=== PATIENT | male | born 1960 | race Caucasian/White ===

== ENCOUNTER 2021-02-21 01:05 | Day surgery (SDC) | payer BC, SELFPAY ==
[2021-02-08 10:44] VITALS: BMI 21.8
[2021-02-21 07:42] VITALS: BP 119/82; PULSE 92; RESP 16; TEMP 36.1; O2SAT 98; BMI 21.7
[2021-02-21 07:52] LABS: Glucose Point of Care 126 mg/dl (65-105)
[2021-02-21] MEDS: LACTATED RINGERS 1,000 ML 150 ML IV CONT (07:52)
--- NOTE | 2021-02-21 07:57 | WPDGICN ---
Assessment and Plan Assessment and plan (1) Colon cancer screening: Code(s): Z12.11 - Encounter for screening for malignant neoplasm of colon Status: Acute Assessment and Plan: Patient presents for colon cancer screening colonoscopy today. Further recommendations will be given after endoscopy. He appears to be at average risk for colon polyps. GI Consult Note Consult date/time: 02/21/21 07:57 HPI: Eric Freeman is a 61 year old male Presents for screening colonoscopy. Patient is current weight appetite bowel movements are normal. He denies abdominal pain. He has had no bleeding. Last colonoscopy was 10 years ago. Family history is noncontributory. Review of Systems Review of Systems: All systems reviewed & are unremarkable except as noted in HPI and below PMFSH Past Medical History Medical History Acute thyroiditis Arthritis of both hips Hypothyroid Meniere's disease, unspecified Metatarsalgia, right foot Osteonecrosis of both hips Family History Family History Father Family history of lymphoma Family history of cardiovascular disease Parkinsons disease Mother Diabetes mellitus Hypertension Family history of elevated blood lipids Family history of cardiovascular disease Other Depression Family history of arthritis Family history of malignant neoplasm of bone Social History Social History Smoking status: Never smoker Alcohol intake: current Substance use: never Substance use type: does not use Living arrangements: with family Spiritual care concerns: No Meds Home Medications and Allergies Home Medications Medication Instructions Recorded Confirmed Type aspirin 81 mg tablet,delayed 81 mg PO DAILY 08/18/19 02/21/21 History release atorvastatin 40 mg tablet 40 mg PO DAILY 08/18/19 02/21/21 History clopidogrel 75 mg tablet 75 mg PO DAILY 08/18/19 02/21/21 History blood sugar diagnostic #100 each 09/14/19 02/21/21 Rx metformin 500 mg tablet 500 mg PO BID #180 tablet 10/08/20 02/21/21 Rx flash glucose scanning reader #1 ea 10/24/20 02/21/21 Rx flash glucose sensor #13 ea 10/24/20 02/21/21 Rx blood sugar diagnostic #100 ea 11/13/20 02/21/21 Rx levothyroxine [Euthyrox] 88 mcg PO DAILY 02/08/21 02/21/21 History nitroglycerin 0.4 mg SUBLINGUAL PRN 02/08/21 02/21/21 History omeprazole 20 mg PO DAILY 02/08/21 02/21/21 History Allergies Allergy/AdvReac Type Severity Reaction Status Date / Time quinine Allergy Intermediate Skin Verified 02/21/21 07:37 Reaction Quinolones Allergy Intermediate RASH Verified 02/21/21 07:37 simvastatin Allergy Intermediate myalgias Verified 02/21/21 07:37 Vital Signs Vital Signs - 24 hr 02/21/21 07:42 Temperature 96.9 F L Pulse Rate 92 Respiratory Rate 16 Blood Pressure 119/82 Pulse Oximetry 98 Exam Narrative: Physical exam reveals patient to be alert. Vital signs stable. HEENT exam is unremarkable. Patient is anicteric. Lungs are clear to auscultation and percussion. Heart is without murmur or extra sounds. Abdominal exam bowel sounds are present soft nontender with no hepatosplenomegaly. Digital external rectal exam is normal.
--- NOTE | 2021-02-21 08:01 | WPDANESEPPF ---
Anes - Initial Pre Proc Eval Procedure: Operation Date: 02/21/21 08:30 Proposed Procedures p Screening Colonoscopy - Ino Collins MD Date/Time: 02/21/21 08:01 Surgeon: Ino Collins MD Pre Op Diagnosis: neoplasm screening Patient Data Age: 61 Gender: M Height: 1.75 m Weight: 66.7 kg Last Vital Signs Temp 36.1 C L 02/21/21 07:42 Pulse 92 02/21/21 07:42 Resp 16 02/21/21 07:42 BP 119/82 02/21/21 07:42 Pulse Ox 98 02/21/21 07:42 Allergies Allergy/AdvReac Type Severity Reaction Status Date / Time quinine Allergy Intermediate Skin Verified 02/21/21 07:37 Reaction Quinolones Allergy Intermediate RASH Verified 02/21/21 07:37 simvastatin Allergy Intermediate myalgias Verified 02/21/21 07:37 Home Medications Medication Instructions Recorded Confirmed Type aspirin 81 mg tablet,delayed 81 mg PO DAILY 08/18/19 02/21/21 History release atorvastatin 40 mg tablet 40 mg PO DAILY 08/18/19 02/21/21 History clopidogrel 75 mg tablet 75 mg PO DAILY 08/18/19 02/21/21 History blood sugar diagnostic #100 each 09/14/19 02/21/21 Rx metformin 500 mg tablet 500 mg PO BID #180 tablet 10/08/20 02/21/21 Rx flash glucose scanning reader #1 ea 10/24/20 02/21/21 Rx flash glucose sensor #13 ea 10/24/20 02/21/21 Rx blood sugar diagnostic #100 ea 11/13/20 02/21/21 Rx levothyroxine [Euthyrox] 88 mcg PO DAILY 02/08/21 02/21/21 History nitroglycerin 0.4 mg SUBLINGUAL PRN 02/08/21 02/21/21 History omeprazole 20 mg PO DAILY 02/08/21 02/21/21 History Laboratory Tests 02/21/21 07:50 POC Capillary Glucose 126 mg/dl H mg/dl (65-105) Patient hx anesthesia problems: none Family hx anesthesia problems: none PMFSH Past Medical History Medical History Acute thyroiditis Arthritis of both hips Hypothyroid Meniere's disease, unspecified Metatarsalgia, right foot Osteonecrosis of both hips Family History Family History Father Family history of lymphoma Family history of cardiovascular disease Parkinsons disease Mother Diabetes mellitus Hypertension Family history of elevated blood lipids Family history of cardiovascular disease Other Depression Family history of arthritis Family history of malignant neoplasm of bone Social History Social History Smoking status: Never smoker Alcohol intake: current Substance use: never Substance use type: does not use Living arrangements: with family Spiritual care concerns: No Anes - Eval Final PreProcedure Day of Procedure 02/21/21 08:01 Patient weight: normal Heart: regular rate and rhythm Lungs: clear to auscultation Airway: Mallampati scale class II Neurological: alert and oriented Last oral intake: >/= 8 hours ASA classification: III Emergent: no Anesthetic plan: proceed Anesthesia type and monitoring: general GIVS and standard monitoring Informed Consent: The patient's anesthetic plan and its attendant risks and benefits were discussed with the patient/family/POA. Questions were solicited and answers provided to the satisfaction of the patient/family/POA.
[2021-02-21 09:18] VITALS: BP 95/64; PULSE 85; RESP 16; O2SAT 97
[2021-02-21 09:28] VITALS: BP 103/67; PULSE 83; RESP 24; O2SAT 97
[2021-02-21 09:38] VITALS: BP 113/79; PULSE 73; RESP 20; O2SAT 99
== END 2021-02-21 09:55 | disposition home or self-care (01) ==
PROVIDERS: PCP Family Medicine; Visit Provider Internal Medicine Gastroenterology
PROC: 0DJD8ZZ Inspection of Lower Intestinal Tract, Via Natural or Artificial Opening Endoscopic (ICD-10-PCS; CPT 45378; principal; 2021-02-21 08:30)
DX: Z12.11 Encounter for screening for malignant neoplasm of colon (principal); K64.8 Other hemorrhoids; K57.30 Diverticulosis of large intestine without perforation or abscess without bleeding; E03.9 Hypothyroidism, unspecified; Z79.82 Long term (current) use of aspirin; Z79.02 Long term (current) use of antithrombotics/antiplatelets; Z79.84 Long term (current) use of oral hypoglycemic drugs
CPT/HCPCS: 45378; 82948; J2704; J7120

== ENCOUNTER 2021-06-26 10:58 | Outpatient (CLI) | payer BC, SELFPAY ==
--- NOTE | ~2021-06-26 | XR_ITS ---
EXAMINATION: XR abdomen/kub 1V INDICATION: Gross hematuria TECHNIQUE: Supine views of the abdomen were obtained on 2 radiographs. COMPARISON: None FINDINGS: There is a 1.4 cm stone of the left kidney lower pole. An adjacent 6 mm stone is also noted in the lower pole of the left kidney. There is a questionable 5 mm stone of the right kidney lower p ole. No stones are identified along the expected courses of the ureters or within the urinary bladder . A left pelvic phlebolith is noted. The bowel gas pattern is normal. A moderate volume of colonic st ool is present. There is mild to moderate osteoarthritis of hips. IMPRESSION: 1. Bilateral nephrolithiasis. Reviewed, dictated and finalized at location A. 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
== END 2021-06-26 10:59 | disposition home or self-care (01) ==
LOC: ANHIMG 11:03
PROVIDERS: PCP Family Medicine; Visit Provider Urology
DX: R31.0 Gross hematuria (principal); N20.0 Calculus of kidney
CPT/HCPCS: 74018

== ENCOUNTER 2022-01-23 10:14 | Outpatient (CLI) | payer OTHER, SELFPAY ==
--- NOTE | ~2022-01-23 | XR_ITS ---
EXAMINATION: XR abdomen/kub 1V INDICATION: Calcium kidney stone TECHNIQUE: Supine views of the abdomen were obtained on three radiographs. COMPARISON: 06/26/2021 FINDINGS: A stable 1.6 cm stone projects in the lower pole of the left kidney. A previously described adjacent 6 mm stone in the lower pole of the kidney is not definitely identified. A 5 mm stone proje cts in the right kidney lower pole. No stones are identified along the expected courses of the ureter s or within the urinary bladder. There is a phlebolith of the left pelvis. The bowel gas pattern is n ormal. There is mild to moderate osteoarthritis of the hips. A moderate volume of colonic stool is pr esent. IMPRESSION: 1. Bilateral nephrolithiasis. Reviewed, dictated and finalized at location B.
== END 2022-01-23 10:15 | disposition home or self-care (01) ==
PROVIDERS: PCP Family Medicine; Visit Provider Urology
DX: N20.0 Calculus of kidney (principal)
CPT/HCPCS: 74018

== ENCOUNTER 2022-07-30 14:29 | Emergency (ER) | payer OTHER, SELFPAY ==
--- NOTE | 2022-07-30 14:39 | ED.WOUNDLAC ---
HPI - Wound/Laceration General Chief Complaint: Wound/Laceration Stated Complaint: FINGER LACERATION Time Seen by Provider: 07/30/22 14:39 Source: patient, family, RN notes reviewed and old records reviewed Mode of arrival: ambulatory Limitations: no limitations History of Present Illness HPI narrative: 62 year old male accompanied by presents to express care with avulsion type of laceration to the distal tip of right middle finger taking part of nail and finger tip. Patient is on blood thinner(Plavix) and has not been able to get wound to quit bleeding even with pressure applied. Patient states that his tetanus is not up to date and he is left hand dominant. Onset (ago): hour(s) (30 minutes prior to arrival) Location: other (right distal middle finger) Place: home Patient tetanus UTD: No Treatments prior to arrival: bandage Related Data Home Medications Medication Instructions Recorded Confirmed aspirin 81 mg tablet,delayed 81 mg PO DAILY 08/18/19 07/30/22 release (Adult Low Dose Aspirin) atorvastatin 40 mg tablet 40 mg PO DAILY 08/18/19 07/30/22 clopidogrel 75 mg tablet 75 mg PO DAILY 08/18/19 07/30/22 nitroglycerin 0.4 mg sublingual 0.4 mg sublingual PRN 02/08/21 07/30/22 tablet Allergies Allergy/AdvReac Type Severity Reaction Status Date / Time quinine Allergy Intermediate Skin Verified 07/30/22 14:42 Reaction Quinolones Allergy Intermediate RASH Verified 07/30/22 14:42 simvastatin Allergy Intermediate myalgias Verified 07/30/22 14:42 Review of Systems Review of Systems: CONSTITUTIONAL: Denies fever, chills, or sweats. CARDIOVASCULAR: Denies chest pain, palpitations, or edema. RESPIRATORY: Denies cough or dyspnea. SKIN: Reports laceration avulsion type at tip of right middle finger involving distal nail and tissue with difficulty controlling bleeding related to blood thinner MUSCULOSKELETAL: Denies musculoskeletal pain NEUROLOGIC: Denies numbness, or weakness. All systems reviewed & are unremarkable except as noted in HPI and below PMFSH Past Medical History Medical History Acute thyroiditis Arthritis of both hips GERD (gastroesophageal reflux disease) History of heart attack Hypothyroid Meniere's disease, unspecified Metatarsalgia, right foot Osteonecrosis of both hips Family History Family History Father Family history of lymphoma Family history of cardiovascular disease Parkinsons disease Mother Diabetes mellitus Hypertension Family history of elevated blood lipids Family history of cardiovascular disease Other Depression Family history of arthritis Family history of malignant neoplasm of bone Social History Social History Smoking status: Never smoker Alcohol intake: current Substance use: never Substance use type: does not use Lack of Transportation: No Lack of Food: Never True Current Housing: I Have Housing Concerned About Future Housing: No Difficulty Paying Gas/Electric Bills: No Difficulty Paying for Meds: No Currently Unemployed: No Education: Trade/Vocational Certificate Difficulty w/ Childcare or Family Care: No Spiritual care concerns: No Comments At time of signature, agree with nursing past medical, surgical, social and family history. There is no relevant family history pertinent to the presenting complaint Exam Narrative: GENERAL: Well-appearing, well-nourished, and in no acute distress. HEAD: Normocephalic, atraumatic. NECK: Supple.no lymphadenopathy CHEST: Clear to auscultation. No respiratory distress.SAO2 99% on room air HEART: Regular rate and rhythm. No murmur heard. Normal peripheral pulses. EXTREMITIES: Normal range of motion. No edema. SKIN: Warm, dry, no rash. Reports laceration to the distal aspect of his right middle finge
[2022-07-30 14:47] VITALS: BP 121/76; PULSE 80; RESP 16; TEMP 36.6; O2SAT 99
[2022-07-30] MEDS: TETANUS,DIPHTHERIA,AC PERTUSSIS ADULT (0.5 ML) BOOSTRIX IM (14:54)
[2022-07-30] MEDS: CELLULOSE OXIDIZED 2 x 14 INCH 1 PKT XX (14:55)
--- NOTE | 2022-07-30 15:14 | PC.NURSE ---
WOUND HAS BEEN CLEANED AND SUGICEL IS APPLIED, BLEEDING HAS SLOWED DOWN. WILL CONTINUE TO MONITOR. TETNUS INFORMATION SHEET PROVIDED.
[2022-07-30 15:45] VITALS: PULSE 72; RESP 14; O2SAT 98
== END 2022-07-30 15:45 | disposition home or self-care (01) ==
PROVIDERS: Emergency Provider Registered Nurse; PCP Family Medicine
DX: S61.302A Unspecified open wound of right middle finger with damage to nail, initial encounter (principal); X58.XXXA Exposure to other specified factors, initial encounter; Z23 Encounter for immunization; M16.0 Bilateral primary osteoarthritis of hip; K21.9 Gastro-esophageal reflux disease without esophagitis; I25.2 Old myocardial infarction; E03.9 Hypothyroidism, unspecified; M87.9 Osteonecrosis, unspecified; Z79.82 Long term (current) use of aspirin; Z79.01 Long term (current) use of anticoagulants
CPT/HCPCS: 90471; 90715; 99213; G0463

== ENCOUNTER 2022-08-07 08:40 | Outpatient (CLI) | payer OTHER, SELFPAY ==
--- NOTE | 2022-08-07 09:07 | ECG_ITS ---
Measurements Intervals [place] Rate: 82 P: 52 NV: 192 QRS: 53 QRSD: 85 T: 39 QT: 359 QTc: 421 Interpretive Statements SINUS RHYTHM POSSIBLE LEFT ATRIAL ENLARGEMENT INCOMPLETE RIGHT BUNDLE BRANCH BLOCK DELAYED PRECORDIAL R/S TRANSITION LOW QRS VOLTAGE IN PRECORDIAL LEADS MINIMAL Q WAVES- INFERIOR LEADS BORDERLINE T WAVE ABNORMALITY- ANT/INF LEADS BASELINE ARTIFACT- I, III, AVR, AVL, AVF, V1 BORDERLINE ECG NO PREVIOUS ECG AVAILABLE FOR COMPARISON Electronically Signed On 08-07-2022 9:30:04 EXCHANGE TELLER by Kenneth Townsend D.O.
[2022-08-07 10:21] LABS: Anion Gap 8 mmol/L (8-16); Blood Urea Nitrogen 21 mg/dL (9-20); Calcium 9.2 mg/dL (8.4-10.2); Carbon Dioxide 29 mmol/L (22-30); Chloride 101 mmol/L (98-107); Estimated Glomerular Filt Rate > 60; Glucose 179 mg/dL (65-110); Potassium 3.8 mmol/L (3.4-5.0); Sodium 138 mmol/L (137-145)
== END 2022-08-07 08:41 | disposition home or self-care (01) ==
LOC: ANHSURGERY 08:43
PROVIDERS: Anesthesiology; PCP Family Medicine; Visit Provider Surgery
DX: Z01.812 Encounter for preprocedural laboratory examination (principal); Z01.810 Encounter for preprocedural cardiovascular examination; K40.90 Unilateral inguinal hernia, without obstruction or gangrene, not specified as recurrent; E11.65 Type 2 diabetes mellitus with hyperglycemia; I45.10 Unspecified right bundle-branch block
CPT/HCPCS: 36415; 80048; 86850; 86900; 86901; 93005

== ENCOUNTER 2022-08-14 00:51 | Day surgery (SDC) | payer OTHER, SELFPAY ==
[2022-08-05 12:30] VITALS: BMI 21.5
--- NOTE | 2022-08-05 12:34 | PC.NURSE ---
Report to the Outpatient Waiting Room, entrance under the green pavilion located off [facility], at time 10:00 on date 08/14/22. Planned Procedure Time: 12:00. Time changes happen often and if your time is changed the preop area will call you the afternoon before. - You and your visitor will be asked to self-screen and do not enter if you have any COVID symptoms. - Only one visitor is requested with a max of two and NO children visitors are allowed at this time. - The patient visitor may be requested to leave or wait in car when not with patient due to distancing restrictions. - A mask is optional within the hospital. Patients may have clear liquids (water, carbonated beverages, clear teas, apple juice) until 3 hours prior to surgery (9:00) with a maximum of 20 ounces. - No food from midnight until time of surgery Take the following medications with a SIP of water the morning of surgery: LEVOTHYROXINE, CEPHALEXIN (IF STILL TAKING) Medications to discontinue per physician: PLAVIX Date to take last dose: CHECK WITH DR. DARNELL Please no make-up, nail sinhala, hairspray, perfume, deodorant, or body powder the day of surgery. No jewelry (including any body piercings) or valuables the day of surgery, leave them at home. Please take a shower or bath the night before, or the morning of, surgery with an antibacterial soap (HIBICLENS). Wear comfortable, loose fitting clothing. - Jewelry must be removed prior to entering the operating room. Rings and piercings that are not removed may be cut off. - The hospital will not accept responsibility for valuables. - Please leave all valuables, including medications, at home the day of surgery. If you are going home after surgery, a licensed auto carrier driver must drive you home. - NO public transportation without another adult if you receive anesthesia. - We recommend that an adult stay with you for 24 hours following discharge. - We also recommend that you do not drive, make important decision, drink alcoholic beverages, or take any drugs that were not prescribed by your health care provider for at least 24 hours after your discharge time. Follow any additional instructions given to you from your surgeon. If you or anyone in your household have experienced Covid symptoms in the past week, please notify your surgeon or the nurse liaison at the phone number below for possible testing. Telephone instructions given to PT - JUAN DEL RIO and asked if any additional questions and then verbalized understanding. Patient advised to call surgeon office or pre surgery nurse liaison [phone] if any additional questions.
--- NOTE | 2022-08-13 08:58 | WPDANESEPPF ---
Anes - Initial Pre Proc Eval Procedure: Operation Date: 08/14/22 12:00 Proposed Procedures p Laparoscopic Right Inguinal Hernia Repair [facility] Assisted - Shelley Chambers MD Date/Time: 08/13/22 08:58 Surgeon: Shelley Chambers MD Pre Op Diagnosis: Right Inguinal Hernia Patient Data Age: 62 Gender: M Height: 1.78 m Weight: 68.1 kg Allergies Allergy/AdvReac Type Severity Reaction Status Date / Time quinine Allergy Intermediate Skin Verified 08/14/22 10:59 Reaction Quinolones Allergy Intermediate RASH Verified 08/14/22 10:59 simvastatin Allergy Intermediate myalgias Verified 08/14/22 10:59 Home Medications Medication Instructions Recorded Confirmed Type aspirin 81 mg tablet,delayed 81 mg PO DAILY 08/18/19 08/14/22 History release (Adult Low Dose Aspirin) atorvastatin 40 mg tablet 40 mg PO DAILY 08/18/19 08/14/22 History clopidogrel 75 mg tablet 75 mg PO DAILY 08/18/19 08/14/22 History nitroglycerin 0.4 mg sublingual 0.4 mg sublingual PRN 02/08/21 08/05/22 History tablet levothyroxine 88 mcg tablet See Rx Instructions .Route 02/10/22 08/14/22 Rx .COMPLEX #90 tabs omeprazole 20 mg capsule,delayed 20 mg PO DAILY #90 caps 02/10/22 08/14/22 Rx release metformin 500 mg tablet See Rx Instructions .Route 05/02/22 08/14/22 Rx .COMPLEX #180 tabs flash glucose scanning reader #1 ea 06/27/22 07/30/22 Rx (FreeStyle Viry 2 [place]) flash glucose sensor (FreeStyle #13 ea 06/27/22 07/30/22 Rx Viry 2 Sensor kit) tadalafil 20 mg tablet (Cialis) 20 mg PO DAILY PRN sexual activity 06/27/22 08/05/22 Rx #30 tabs cephalexin 500 mg capsule 500 mg PO Q8H #21 caps 07/30/22 08/14/22 Rx ECG: Date of Service: 08/07/22 Procedure(s): CA 12 lead EKG Accession Number(s): [id number] cc: ~ ? Measurements Intervals? [place]? Rate: ? 82 ? P:? 52 NM: ? 192? QRS:? 53 QRSD: ? 85 ? T:? 39 QT: ? 359? QTc:? 421? Interpretive Statements SINUS RHYTHM POSSIBLE LEFT ATRIAL ENLARGEMENT INCOMPLETE RIGHT BUNDLE BRANCH BLOCK DELAYED PRECORDIAL R/S TRANSITION LOW QRS VOLTAGE IN PRECORDIAL LEADS MINIMAL Q WAVES- INFERIOR LEADS BORDERLINE T WAVE ABNORMALITY- ANT/INF LEADS BASELINE ARTIFACT- I, III, AVR, AVL, AVF, V1 BORDERLINE ECG NO PREVIOUS ECG AVAILABLE FOR COMPARISON Electronically Signed On 08-07-2022 9:30:04 OIL PIPELINE DISPATCHER by Kenneth Townsend D.O. Patient hx anesthesia problems: none Family hx anesthesia problems: none Results Review: All pre-operative results and documents have been reviewed as part of the pre-operative evaluation. [facility] Past Medical History Medical History Acute thyroiditis Arthritis of both hips ASHD (arteriosclerotic heart disease) CAD (coronary artery disease) GERD (gastroesophageal reflux disease) History of heart attack Hyperlipidemia, unspecified Hypothyroid Meniere's disease, unspecified Metatarsalgia, right foot Osteonecrosis of both hips Stricture and stenosis of esophagus Type 2 diabetes mellitus with hyperglycemia Surgical History Surgical History History of coronary artery stent placement 1 stent 09/2017 Family History Family History Father Family history of lymphoma Family history of cardiovascular disease Parkinsons disease Mother Diabetes mellitus Hypertension Family history of elevated blood lipids Family history of cardiovascular disease Other Depression Family history of arthritis Family history of malignant neoplasm of bone Social History Social History (Reviewed 08/14/22 @ 11:02 by Shelley Kline
[2022-08-14] VITALS (14 sets, daily range): BP systolic 98–129; BP diastolic 59–82; PULSE 61–91; RESP 11–19; TEMP 36–36.1; O2SAT 93–100
[2022-08-14] MEDS: ACETAMINOPHEN 500 MG TABLET 1000 MG PO (10:40)
[2022-08-14] MEDS: LACTATED RINGERS 1,000 ML 30 ML IV CONT ×3 (10:45→15:21)
[2022-08-14 10:53] LABS: Glucose Point of Care 121 mg/dl (65-105)
--- NOTE | 2022-08-14 11:01 | WPDHPUPDATE1 ---
History and Physical Update Update Date/Time: 08/14/22 11:01 History and Physical has been reviewed, including an updated exam of the patient. There are NO changes in the patient's condition. Risks, benefits, and alternatives have been discussed and questions answered. Patient agrees to proceed with procedure.
--- NOTE | 2022-08-14 11:02 | PM.IMHP ---
H&P: HPI History of Present Illness Date/Time: 08/14/22 11:02 Chief Complaint: right groin pain, bulge Narrative: Mr. Freeman presents today at the request of Dr. Riley for evaluation.? He reports a, at least, one year history of right groin bulging, along his belt line.? Does not reduced and has increased in size since her first noticed it.? Has developed intermittent spontaneous associated discomfort.? Denies urinary difficultly, but has been more constipated recently.? He was evaluated by his PCP who noted a possible defect.? Referred to us today for evaluation and surgical opinion. Review of Systems Review of Systems: All systems reviewed & are unremarkable except as noted in HPI and below PMFSH Past Medical History Medical History Acute thyroiditis Arthritis of both hips ASHD (arteriosclerotic heart disease) CAD (coronary artery disease) GERD (gastroesophageal reflux disease) History of heart attack Hyperlipidemia, unspecified Hypothyroid Meniere's disease, unspecified Metatarsalgia, right foot Osteonecrosis of both hips Stricture and stenosis of esophagus Type 2 diabetes mellitus with hyperglycemia Surgical History Surgical History History of coronary artery stent placement 1 stent 09/2017 Family History Family History Father Family history of lymphoma Family history of cardiovascular disease Parkinsons disease Mother Diabetes mellitus Hypertension Family history of elevated blood lipids Family history of cardiovascular disease Other Depression Family history of arthritis Family history of malignant neoplasm of bone Social History Social History Social History: Caffeine-coffee/tea Smoking status: Never smoker Alcohol intake: current Alcohol use details: VERY RARE Substance use: never Substance use type: does not use Lack of Transportation: No Lack of Food: Never True Current Housing: I Have Housing Concerned About Future Housing: No Difficulty Paying Gas/Electric Bills: No Difficulty Paying for Meds: No Currently Unemployed: No Education: Trade/Vocational Certificate Difficulty w/ Childcare or Family Care: No Living arrangements: with family Spiritual care concerns: No Meds Home Medications and Allergies Home Medications Medication Instructions Recorded Confirmed Type aspirin 81 mg tablet,delayed 81 mg PO DAILY 08/18/19 08/14/22 History release (Adult Low Dose Aspirin) atorvastatin 40 mg tablet 40 mg PO DAILY 08/18/19 08/14/22 History clopidogrel 75 mg tablet 75 mg PO DAILY 08/18/19 08/14/22 History nitroglycerin 0.4 mg sublingual 0.4 mg sublingual PRN 02/08/21 08/05/22 History tablet levothyroxine 88 mcg tablet See Rx Instructions .Route 02/10/22 08/14/22 Rx .COMPLEX #90 tabs omeprazole 20 mg capsule,delayed 20 mg PO DAILY #90 caps 02/10/22 08/14/22 Rx release metformin 500 mg tablet See Rx Instructions .Route 05/02/22 08/14/22 Rx .COMPLEX #180 tabs flash glucose scanning reader #1 ea 06/27/22 07/30/22 Rx (FreeStyle Viry 2 [place]) flash glucose sensor (FreeStyle #13 ea 06/27/22 07/30/22 Rx Viry 2 Sensor kit) tadalafil 20 mg tablet (Cialis) 20 mg PO DAILY PRN sexual activity 06/27/22 08/05/22 Rx #30 tabs cephalexin 500 mg capsule 500 mg PO Q8H #21 caps 07/30/22 08/14/22 Rx Allergies Allergy/AdvReac Type Severity Reaction Status Date / Time quinine Allergy Intermediate Skin Verified 08/14/22 10:59 Reaction Quinolones Allergy Intermediate RASH Verified 08/14/22 10:59 simvastatin Allergy Intermediate myalgias Verified 08/14/22 10:59 Exam Const: General: cooperative, comfortable and no acute distress Resp: Auscultation: clear to auscultation bilaterally Cardio:
[2022-08-14] MEDS: KETOROLAC 15 MG/ML VIAL (*BKC) IV PUSH (11:17)
[2022-08-14] MEDS: ceFAZolin 2 GM/D5W 50 ML 2 GM/50 ML BAG IVPB (11:57)
[2022-08-14] MEDS: BUPIVACAINE/EPINEPHRINE 0.5% 30 ML VIAL INFILTRATE (12:27)
--- NOTE | 2022-08-14 13:07 | P.OP_ITS ---
Procedure Note - Detailed Date of Procedure 08/14/22 Pre-op Diagnosis Right Inguinal Hernia Post-op Diagnosis Same Procedure Performed robotic assisted right inguinal hernia repair with mesh Surgeon Shelley Chambers MD Anesthesia General Indications 62 y/o M c RIH over last few mos that has progressively become more symptomatic Findings indirect right inguinal hernia Description of Procedure Patient was brought into the operating room and placed in the supine position. After adequate induction of general anesthesia, the patient was prepped and draped in normal sterile fashion. A time-out was then done to verify the patient's identity, as well as the procedure being performed. Began by making a 8 mm incision in the supraumbilical region, a Veress needle was then placed into the peritoneal cavity. CO2 gas was then insufflated and after adequate pneumoperitoneum was achieved, the Veress needle was removed. I then placed an 8 mm trocar through this incision. I then placed the endoscope through this trocar site and under direct visualization placed 2 further 8 mm ports in the right and left mid abdomen. The Banyan Branchi robot was then docked to the 3 trocar sites. I then scrubbed out and went to the robotic console. Upon examining the pelvis, it was noted that the patient had a moderate right inguinal hernia. The left side was examined and no hernia defect was noted. I began by making a p reperitoneal flap approximately 6 cm superior to the defect. This flap was carried medially past the umbilical ligaments in laterally to the transversalis. It then began dissection of my medial compartment taking this down to the pubic tubercle. I then began the lateral dissection taking this down to the transversalis fascia. Once these compartments were achieved, I began dissection around the cord structures. A moderate indirect hernia was noted at this point. Using careful dissection, was able to reduce indirect hernia sac off the cord structures. Once this was adequately done, I went ahead and placed a large piece of 3D Max mesh into the abdominal cavity. The mesh was carefully positioned, centering the center of the mesh over the indirect defect. Once this was done, was very satisfied with our repair. Using 3-0 Vicryl sutures, I tacked the mesh medially to Willian's ligament. Two lateral sutures were placed from the mesh to the transversalis fascia. I then closed the peritoneal flap with a running 2.0 V Lock suture. The abdomen was then desufflated, and all ports were removed. All incisions were then closed with the 4.0 monocryl suture. Dermabond was placed on each wound. The patient tolerated the procedure well, was extubated in the operating room postoperatively, and will now be transferred to the recovery room in stable condition. Implants large 3DMax mesh Estimated Blood Loss 10 Drains No Packing No Pathology None sent Complications No immediate complications Condition Stable Disposition PACU [facility] Billing Surgery - Charge Forward: Surgery Billing
[2022-08-14 13:27] LABS: Glucose Point of Care 184 mg/dl (65-105)
[2022-08-14] MEDS: oxyCODONE HCL (*CRX) 5 MG TAB IR PO (15:27)
--- NOTE | 2022-08-14 17:40 | SUR.PHASEII ---
BLADDER SCANNER SHOWED 427 ML URINE. PATIENT ATTEMPTING TO URINATE AGAIN.
--- NOTE | 2022-08-14 17:52 | SUR.PHASEII ---
DR. DARNELL CALLED RE: PATIENT INABILITY TO URINATE. INSTRUCTED TO STRAIGHT CATHETERIZE AND SEND HOME.
== END 2022-08-14 18:19 | disposition home or self-care (01) ==
PROVIDERS: PCP Family Medicine; Visit Provider Surgery
PROC: 8E0Y4CZ Robotic Assisted Procedure of Lower Extremity, Percutaneous Endoscopic Approach (ICD-10-PCS; CPT 49650; principal; 2022-08-14 12:00)
DX: K40.90 Unilateral inguinal hernia, without obstruction or gangrene, not specified as recurrent (principal); I25.10 Atherosclerotic heart disease of native coronary artery without angina pectoris; I25.2 Old myocardial infarction; E11.9 Type 2 diabetes mellitus without complications; E78.5 Hyperlipidemia, unspecified; E03.9 Hypothyroidism, unspecified; K21.9 Gastro-esophageal reflux disease without esophagitis; Z95.5 Presence of coronary angioplasty implant and graft; Z79.02 Long term (current) use of antithrombotics/antiplatelets; Z79.82 Long term (current) use of aspirin; Z79.84 Long term (current) use of oral hypoglycemic drugs
CPT/HCPCS: 49650; S2900; 36415; 80048; 82948; 86850; 86900; 86901; 93005; A9270; C1781; J0690; J1170; J1885; J2250; J3010; J7120

== ENCOUNTER 2022-12-24 14:10 | Outpatient (CLI) | payer OTHER, SELFPAY ==
[2022-12-24 16:29] LABS: Kit Draw Collected
== END 2022-12-24 14:11 | disposition home or self-care (01) ==
LOC: ANHGOSHLAB 14:12
PROVIDERS: PCP Family Medicine; Visit Provider Family Medicine
DX: E03.9 Hypothyroidism, unspecified (principal); E11.65 Type 2 diabetes mellitus with hyperglycemia
CPT/HCPCS: 36415

== ENCOUNTER 2023-03-04 10:21 | Outpatient (CLI) | payer MEDICARE, SELFPAY ==
--- NOTE | ~2023-03-04 | XR_ITS ---
EXAMINATION: XR abdomen/kub 1V INDICATION: Calcium kidney stone TECHNIQUE: Supine views of the abdomen were obtained on 2 radiographs. COMPARISON: 01/23/2022 FINDINGS: Again seen is a stable 1.6 cm stone of the left kidney lower pole. The previously described stone of the right kidney lower pole is not definitely identified. There is a phlebolith of the left pelvis. No stones are identified in the expected locations of the ureters or bladder. There is mild to moderate osteoarthritis of hips. A moderate volume of colonic stool is present. IMPRESSION: 1. Stable left nephrolithiasis. Reviewed, dictated and finalized at location B.
== END 2023-03-04 10:22 | disposition home or self-care (01) ==
PROVIDERS: PCP Family Medicine; Visit Provider Urology
DX: N20.0 Calculus of kidney (principal)
CPT/HCPCS: 74018

== ENCOUNTER 2023-10-28 12:19 | Outpatient (CLI) | payer MEDICARE, SELFPAY ==
--- NOTE | ~2023-10-28 | XR_ITS ---
AP view of the pelvis and AP and lateral views of the left hip Clinical history: Pain Findings: No acute fracture or dislocation is seen. Osseous alignment is anatomic. Bilateral hip and SI joint spaces are preserved. Soft tissues are unremarkable. Impression: No significant abnormality is seen. Reviewed, dictated and finalized at location . Impression: No significant abnormality is seen.
--- NOTE | ~2023-10-28 | XR_ITS ---
Left Shoulder Technique: AP and scapular Y views were obtained. Clinical History: Pain Findings: No fracture or dislocation is seen. Osseous alignment is anatomic. The glenohumeral and acr omioclavicular joint spaces are preserved. Soft tissues are unremarkable. Impression: Unremarkable left shoulder radiographs. Reviewed, dictated and finalized at [facility]. Impression: Unremarkable left shoulder radiographs.
== END 2023-10-28 12:20 ==
PROVIDERS: PCP Family Medicine; Visit Provider Nurse Practitioner Family
DX: M25.512 Pain in left shoulder (principal); M25.552 Pain in left hip
CPT/HCPCS: 73030; 73502

== ENCOUNTER 2024-01-18 09:27 | Outpatient (CLI) | payer MEDICARE, SELFPAY ==
--- NOTE | ~2024-01-18 | XR_ITS ---
XR abdomen/kub 1V Ordering provider: Bk Dhillon MD History: . CALCIUM KIDNEY STONE, known left stone follow up . Comparison: March 04, 2023 FINDINGS: BOWEL: Nonobstructive bowel gas pattern. ORGANOMEGALY: None. SIGNIFICANT PATHOLOGIC CALCIFICATIONS: Stone in the left kidney lower pole. OTHER: No free air is seen under the diaphragm. IMPRESSION: Stone in the left kidney. No change from previous examination. Reviewed, dictated and finalized at location A.
== END 2024-01-18 09:28 | disposition home or self-care (01) ==
LOC: ANHIMG 09:32
PROVIDERS: PCP Family Medicine; Visit Provider Urology
DX: N20.0 Calculus of kidney (principal)
CPT/HCPCS: 74018

== ENCOUNTER 2024-04-08 14:38 | Emergency (ER) | payer MEDICARE, SELFPAY ==
--- NOTE | ~2024-04-08 | XR_ITS ---
EXAMINATION: XR finger 2nd RT min 2V DATE: 04/08/2024 15:19 INDICATION: Right hand second digit injury. TECHNIQUE: 4 views of right hand second digit were obtained. COMPARISON: Right hand radiographs 04/04/2018 FINDINGS: There is a nondisplaced comminuted fracture of tuft of second distal phalanx. There is mild osteoarthritis of second metacarpophalangeal joint and proximal interphalangeal joint and moderate o steoarthritis of distal interphalangeal joint. There is a chronic punctate calcification ulnar to sec ond distal interphalangeal joint. IMPRESSION: 1. Comminuted fracture of tuft of second distal phalanx. Reviewed, dictated and finalized at location A.
[2024-04-08 14:54] VITALS: BP 111/67; PULSE 71; RESP 16; TEMP 36.1; O2SAT 99
--- NOTE | 2024-04-08 15:03 | ED.UPPEXIN ---
HPI - Extremity Injury (Upper) General Chief Complaint: Extremity Injury, Upper Stated Complaint: injured Finger Right Hand Time Seen by Provider: 04/08/24 15:04 Source: patient, RN notes reviewed and old records reviewed Mode of arrival: ambulatory Limitations: no limitations History of Present Illness HPI narrative: 64-year-old male to [facility] with complaint of pain, bruising and swelling to 2nd distal digit of right hand. Patient states that he was splitting wood yesterday and smashed digit by accident. Patient states he has been applying ice at home and elevating it, however he is experiencing increased pain and swelling. Patient denies prior injury to digit, numbness, tingling, pain radiating into right upper extremity, pertinent medical history. Patient endorsing limited ROM due to pain and swelling. Patient resting uncomfortably in exam room in no acute distress. Respirations even and nonlabored. Related Data Home Medications Medication Instructions Recorded Confirmed aspirin 81 mg tablet,delayed 81 mg PO DAILY 08/18/19 04/08/24 release (Adult Low Dose Aspirin) nitroglycerin 0.4 mg sublingual 0.4 mg sublingual PRN 02/08/21 04/08/24 tablet Allergies Allergy/AdvReac Type Severity Reaction Status Date / Time quinine Allergy Intermediate Skin Verified 04/08/24 14:50 Reaction Quinolones Allergy Intermediate RASH Verified 04/08/24 14:50 simvastatin Allergy Intermediate myalgias Verified 04/08/24 14:50 Review of Systems Review of Systems: All systems reviewed & are unremarkable except as noted in HPI and below Constitutional: Constitutional: Reports no additional constitutional complaints Eyes: Eyes: Reports no additional eye complaints ENT: Reports system reviewed and no additional complaints, except as documented Cardiovascular: Cardiovascular: Reports no additional cardiovascular complaints, Denies chest pain and Denies dyspnea Respiratory: Respiratory: Reports no additional respiratory complaints, Denies cough and Denies dyspnea Musculoskeletal: Musculoskeletal: Reports as per HPI, Reports arthralgias, Reports joint swelling, Reports limited range of motion, Denies numbness and Denies radiating pain into limb Comments: Second digit right hand Integumentary/Breasts: Skin/Breast: Reports nail changes ( 2nd digit, right hand) Neurologic: Reports system reviewed and no additional complaints, except as documented Psychiatric: Psychiatric: Reports no additional psychiatric complaints PMFSH Past Medical History Medical History Acute thyroiditis Arthritis of both hips ASHD (arteriosclerotic heart disease) CAD (coronary artery disease) GERD (gastroesophageal reflux disease) History of heart attack Hyperlipidemia, unspecified Hypothyroid Meniere's disease, unspecified Metatarsalgia, right foot Osteonecrosis of both hips Stricture and stenosis of esophagus Type 2 diabetes mellitus with hyperglycemia Surgical History Surgical History History of coronary artery stent placement 1 stent 09/2017 S/P right inguinal hernia repair robotic assisted right inguinal hernia repair with mesh 08/14/22 Family History Family History Father Family history of lymphoma Family history of cardiovascular disease Parkinsons disease Mother Diabetes mellitus Hypertension Family history of elevated blood lipids Family history of cardiovascular disease Other Depression Family history of arthritis Family history of malignant neoplasm of bone Social History Social History Social History: Caffeine-coffee/tea Smoking status: Never smoker Alcohol intake: current Alcohol use details: VERY RARE Substance use: never Substance us
== END 2024-04-08 15:46 | disposition home or self-care (01) ==
PROVIDERS: Emergency Provider Nurse Practitioner Family; PCP Family Medicine
DX: S62.660A Nondisplaced fracture of distal phalanx of right index finger, initial encounter for closed fracture (principal); X58.XXXA Exposure to other specified factors, initial encounter; M16.0 Bilateral primary osteoarthritis of hip; I25.10 Atherosclerotic heart disease of native coronary artery without angina pectoris; K21.9 Gastro-esophageal reflux disease without esophagitis; I25.2 Old myocardial infarction; E78.5 Hyperlipidemia, unspecified; E03.9 Hypothyroidism, unspecified; E11.9 Type 2 diabetes mellitus without complications; M87.9 Osteonecrosis, unspecified; Z95.5 Presence of coronary angioplasty implant and graft; M79.644 Pain in right finger(s)
CPT/HCPCS: 29125; 11740; 73140; 99213; G0463

== ENCOUNTER 2024-09-10 08:54 | Emergency (ER) | payer MEDICARE, SELFPAY ==
--- NOTE | 2024-09-10 09:04 | ED.CHESTPAIN ---
HPI - Chest Pain General Chief Complaint: Chest Pain Stated Complaint: ARM/NECK PAIN Time Seen by Provider: 09/10/24 09:08 Source: patient, RN notes reviewed and old records reviewed Mode of arrival: ambulatory Limitations: no limitations History of Present Illness HPI narrative: 64-year-old male who presents to [facility] with complaints off left shoulder pain with some numbness and tingling that started yesterday evening. Patient states that pain went up into his jaw during the night. Patient has history of CA in 2018 with stent and balloon angioplasty done by Dr Esposito. Patient reports that these symptoms today are similar to when he had previous CA. Patient denies any shortness of breath or any diaphoresis or any nausea. Patient has had previous neck surgery with some arthritis in neck also. Patient received 4 baby aspirins while in express care, refuses ambulance transfer. Patient reports that pain was worse when he was lying down has been sitting up most of the night.Patient reports that he did have COVID on August 18. MD complaint: other (left shoulder pain with numbness and tingling and some radiation to left neck) Pertinent past history: coronary artery disease, prior CA and other (stent and balloon angioplasty) Onset (ago): day(s) (yesterday around supper time left shoulder upper arm tingling and numbness, some radiation to neck during the night.) Pain location: other (left shoulder, jaw) Pain scale (0-10): 5 Treatment prior to arrival: none Related Data Home Medications ?Medication ?Instructions ?Recorded ?Confirmed ?Last Taken ?Type aspirin 81 mg tablet,delayed 81 mg PO DAILY 08/18/19 09/10/24 08/13/22 History release (Adult Low Dose Aspirin) nitroglycerin 0.4 mg sublingual 0.4 mg sublingual PRN 02/08/21 09/10/24 02/20/21 History tablet Allergies Allergy/AdvReac Type Severity Reaction Status Date / Time quinine Allergy Intermediate Skin Verified 09/10/24 11:16 Reaction Quinolones Allergy Intermediate RASH Verified 09/10/24 11:16 simvastatin Allergy Intermediate myalgias Verified 09/10/24 11:16 Review of Systems Review of Systems: CONSTITUTIONAL: Denies fever, chills, or sweats. EYES: Denies visual changes, redness, or discharge. ENT: Denies rhinorrhea, congestion, sore throat, or otalgia. CARDIOVASCULAR: Denies chest pain, palpitations, or edema. RESPIRATORY: Denies cough or dyspnea. GASTROINTESTINAL: Denies abdominal pain, nausea, vomiting, or diarrhea. GENITOURINARY: Denies dysuria or hematuria. SKIN: Denies rash or itching. MUSCULOSKELETAL: Denies back pain, pain to left shoulder area with numbness and tingling and to upper left arm with some radiation of pain to jaw area during the night. NEUROLOGIC: Denies headache, numbness, or weakness. PSYCHIATRIC: Denies anxiety or depression. 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 Rectal Hemorrhage Metatarsalgia, right foot Osteonecrosis of both hips Arthritis of both hips Hypothyroid ASHD (arteriosclerotic heart disease) Acute thyroiditis Hyperlipidemia, unspecified Meniere's disease, unspecified Stricture and stenosis of esophagus Type 2 diabetes mellitus with hyperglycemia Surgical History Surgical History (Updated 09/12/24 @ 08:44 by Beata Crandall NP) H/O cervical spine surgery S/P right inguinal hernia repair robotic assisted right inguinal hernia repair with mesh 08/14/22 History of coronary artery stent placement 1 stent 09/2017 Family History Family History Father Family history of lymphoma Family history of cardiovascular disease Parkinsons disease Mother Diabetes mellitus Hypertension Family history of elevated blood lipids Family history of cardiovascular disease Other Depression Family history of arthritis Family history of malignant neoplasm of bone Social History Social History Social History: Caffeine-coffee/tea Smoking status: Never smoker Alcohol intake: current Alcohol use details: VERY RARE Substance use: never Substance use type: does not use Lack of Transportation: No Lack of Food: Never True Current Housing: I Have Housing Concerned About Future Housing: No Difficulty Paying Gas/Electric Bills: No Difficulty Paying for Meds: No Currently Unemployed: No Education: Trade/Vocational Certificate Difficulty w/ Childcare or Family Care: No Living arrangements: with family Spiritual care concerns: No Comments At time of signature, agree with nursing past medical, surgical, social and family history. There is no relevant family history pertinent to the presenting complaint Exam Narrative: GENERAL: Well-appearing, well-nourished, and in no present acute distress. HEAD: Normocephalic, atraumatic. EYES: PERRLA and EOMI. ENT: Nares clear, no rhinorrhea or epistaxis. Mucous membranes moist.TM's normal throat pink with no swelling noted or acute redness NECK: Supple. no lymphadenopathy CHEST: Clear to auscultation. No respiratory distress.SAO2 100% on room air HEART: Regular rate and rhythm. No murmur heard. Normal peripheral pulses. ABDOMEN: Soft, nontender, nondistended, normal active bowel sounds. EXTREMITIES: Normal range of motion. No edema.Pain to left shoulder and left upper arm with some numbness and tingling sensation with some pain to jaw during the night not present at this time. SKIN: Warm, dry, no rash. NEURO: No focal deficits. Alert and oriented x3. Course Course Emergency Course: Patient is aware of diagnosis, understands and agrees to treatment plan.? Anticipatory guidance given.? Patient agrees to follow-up as directed and is aware of reasons to seek care at the emergency department. Patient received aspirin 325 mg while in clinic Portions of this record may have been created with voice recognition software Level of Care: Express Care Visit Vital Signs Vital signs: Vital Signs Temperature 35.7 C L 09/10/24 09:08 Pulse Rate 65 09/10/24 09:08 Respiratory Rate 16 09/10/24 09:08 Blood Pressure 121/78 09/10/24 09:08 Pulse Oximetry 100 09/10/24 09:08 Temperature 35.7 C L 09/10/24 09:08 Pulse Rate 65 09/10/24 09:08 Respiratory Rate 16 09/10/24 09:08 Blood Pressure 121/78 09/10/24 09:08 Pulse Oximetry 100 09/10/24 09:08 Reviewed Transfer Transfered to: [facility] Transportation: Other (per private car refused ambulance transportation) Transfer rationale: history of previous CA cardiac stent, CA, and angioplasty reports pain in shoulder upper left arm and to jaw during night similar to symptoms with past CA needs higher level of care and evaluation Accepting physician: Dr Soares Transfer comments: per private car refused ambulance transfer signed AMA paper in regards to refusal for ambulance transport. MDM - Chest Pain MDM Narrative Medical decision making narrative: [id number] Soares with condition, update, PMH specific cardiac history, VS, testing reviewed with Dr Soares accepting patient for transfer. Differential Diagnosis Differential diagnosis: Likely unstable angina pectoris, atypical chest pain and other (CAD, numbness and tingling and pain to left shoulder and upper arm radiation to aw during the night) Medical Records Data Attestation: I reviewed the patient's medical records. Medical records narrative: , ECG Data EKG #1: Attestation: I personally reviewed and interpreted this ECG as follows: ECG completion date: 09/10/24 ECG completion time: 09:08 Prior ECG tracings: not available for review Ischemic changes: t wave inversions (V1) Interpretation: sinus rhythm rate 63, ID 197ms, QRS 100ms QT 412ms EKG Interpretation: normal rate, sinus rhythm, RBBB (incomplete) and other (flipped T 's V1) Critical Care Time Critical Care Time Critical Care Time: No Discharge Plan Discharge Clinical Impression: Atypical chest pain Patient Disposition: Acute Care Hospital Condition: Stable Patient Language: Serbian Prescriptions: No Action aspirin [Adult Low Dose Aspirin] 81 mg tablet,delayed release (DR/EC) 81 mg PO DAILY (DME) FreeStyle Viry 3 Sensor Device See Rx Instructions .Route Qty: 13 3RF Rx Instructions: As directed atorvastatin 40 mg tablet 40 mg PO DAILY Qty: 90 3RF omeprazole 20 mg capsule,delayed release(DR/EC) 20 mg PO DAILY Qty: 90 3RF Rx Instructions: Take 1 capsule by mouth once daily insulin degludec [Tresiba FlexTouch U-100] 100 unit/mL (3 mL) insulin pen 10 unit subcut DAILY Qty: 15 5RF nitroglycerin 0.4 mg tablet, sublingual 0.4 mg sublingual PRN (DME) FreeStyle Viry 2 [place] Misc See Rx Instructions .ROUTE .MEDSUPPLY Qty: 1 0RF Rx Instructions: As directed (DME) FreeStyle Viry 2 Sensor Kit See Rx Instructions .ROUTE .MEDSUPPLY Qty: 13 3RF Rx Instructions: As directed metformin 1,000 mg tablet extended release 24 hr 1,000 mg PO DAILY Qty: 90 1RF (DME) NovoFine Plus 32 gauge x 1/6 needle See Rx Instructions .Route Qty: 100 3RF Rx Instructions: As directed use with Tresiba pen levothyroxine 75 mcg tablet 75 mcg PO DAILY Qty: 90 1RF Follow-up/Referrals: Eric Riley MD [Primary Care Provider] - Time of Disposition: 09:34 Quality Elizabeth Coma Scale Eyes: Open Verbal: Oriented and Alert Motor: Follows Commands Corolla Coma Total Score: 15
[2024-09-10 09:08] VITALS: BP 121/78; PULSE 65; RESP 16; TEMP 35.7; O2SAT 100
[2024-09-10] MEDS: ASPIRIN 81 MG CHEWABLE TABLET 324 MG PO (09:20)
--- NOTE | 2024-09-10 10:36 | ECG_ITS ---
Test Date: 2024-09-10 10:02:05 Measurements Intervals [place] Rate: 66 P: 43 VA: 182 QRS: 35 QRSD: 101 T: 33 QT: 401 QTc: 423 Interpretive Statements SINUS RHYTHM INCOMPLETE RIGHT BUNDLE BRANCH BLOCK MINIMAL Q WAVES- INFERIOR LEADS CONSIDER ANTERIOR INFARCT, AGE INDETERMINATE BASELINE ARTIFACT- I, II, III, AVR, AVL, V1, V4 ABNORMAL ECG Compared to ECG 09/10/2024 09:08:34 No significant changes Electronically Signed On 09-10-2024 12:01:48 NET DEVELOPER PROGRAMMER by Kenneth Townsend D.O.
== END 2024-09-10 09:34 | disposition short-term general hospital (02) ==
PROVIDERS: Emergency Provider Registered Nurse; PCP Family Medicine
DX: R07.89 Other chest pain (principal); I25.10 Atherosclerotic heart disease of native coronary artery without angina pectoris; I25.2 Old myocardial infarction; E03.9 Hypothyroidism, unspecified; E78.5 Hyperlipidemia, unspecified; E11.9 Type 2 diabetes mellitus without complications; Z79.4 Long term (current) use of insulin; Z79.84 Long term (current) use of oral hypoglycemic drugs; Z95.5 Presence of coronary angioplasty implant and graft; K21.9 Gastro-esophageal reflux disease without esophagitis; M16.0 Bilateral primary osteoarthritis of hip; Z79.82 Long term (current) use of aspirin
CPT/HCPCS: 93005; 99213; A9270; G0463

== ENCOUNTER 2024-09-10 09:48 | Emergency (ER) | payer MEDICARE, SELFPAY ==
--- NOTE | ~2024-09-10 | CT_ITS ---
EXAMINATION: CT brain wo con DATE: 09/10/2024 13:03 INDICATION: Transient left arm paresthesias TECHNIQUE: Computed tomography (CT) of the head was performed without intravenous contrast. Sagittal and coronal reconstructions were performed. The mA was adjusted according to patient size. Iterative reconstruction technique was employed. The dose-length product was 681.00 mGy-cm. COMPARISON: None FINDINGS: No acute intracranial hemorrhage, acute infarction or abnormal extra axial fluid collection. Ventricl es are normal and symmetric. No mass/mass effect. The orbits, paranasal sinuses and mastoid air cells are normal. Intracranial calcified cerebral atherosclerosis is noted. IMPRESSION: 1. Normal brain. No acute intracranial process. Reviewed, dictated and finalized at location A. ASSISTANT
--- OUTSIDE RECORDS SUMMARY | 2024-09-10 09:50 | XMS_ITS | Clinical Summary ---
Author Organization [facility] Address [address] 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
--- OUTSIDE RECORDS SUMMARY | 2024-09-10 09:50 | XMS_ITS | Encounter Summary ---
Author Organization [employer] Address [address] [place] [address] Care Team Providers Care Lathe Hand Name Role Phone Unavailable Primary Care Provider Unavailabl e Encounter Details Date Type Department Care Team (Late st Contact Info) Description 02/16/[address] [facility] Support Serv. (Adt Cardiology-[facility]) [address] 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
--- OUTSIDE RECORDS SUMMARY | 2024-09-10 09:50 | XMS_ITS | Continuity of Care Document ---
Author Organization [facility] Address [address] [place] [address] Phone Care Team Providers Care Shop Service Technician Name Role Phone Adalid Moser DO Unavailable Unavailable Advance Directives Directive Yes / No Effective Date File Name No Information Encounters Encounter Description Practice Location Reason(s) For Visit Diagnoses Date Provider Providers Copied on Encounter [facility], [address], [place], [place], [id number], [place] tel:[phone] [facility] No Information Ehsan Florez. [address] [place], [address], [place]. tel: [phone] Family History Family Member Type Diagnosis Age At Onset No Information Payers Payer name Insurance type Covered democrat ID Authoriza tion(s) No Information Social History [...]
--- OUTSIDE RECORDS SUMMARY | 2024-09-10 09:50 | XMS_ITS | Encounter Summary ---
Author Organization [facility] Address 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 ASSISTANT Gender Identity Not on file Sexual Orientation Not on file documented as of this encounter Plan of Treatment Not on file documented as of this encounter Procedures Procedure Name Priority Date/Time Associated Diagnosis Comments XR CERVICAL SPINE 1 VW Routine 09/16/2007 3:20 PM SECURITY ASSISTANT documented in this encounter Results * XR CERVICAL SPINE 1 VW (09/16/2007 3:20 PM SECURITY ASSISTANT) Anatomical Region Laterality Modality Spine Other 09/16/2007 3:20 PM SECURITY ASSISTANT Narrative 09/17/2007 5:07 PM SECURITY ASSISTANT [address] [address] Admit Date: 09/16/2007 ERIC FREEMAN Sex: M Admit Prov: NICK BLANK Date: 1960 Primary Care Prov: ERIC DAI CMRN: [id number] Room: [facility] SSN: [id number] IMAGING SERVICES Ordering Prov: N/A Accession Number: [id number] Interpretation CROSSTABLE LATERAL RADIOGRAPH, CERVICAL SPINE, 09/16/2007 History: Cervical spine fusion. Findings: Patient is status post anterior fusion at C5-C6 level. Metal plate and screws are in place. Anteroposterior alignment of the vertebrae is normal. The posterior elements appear intact. Prevertebral soft tissues are normal. Impression: Status post anterior fusion at C5-C6 level. Alignment is unchanged. Bony fusion appears to have occurred. . Dictated by: JACQUELINE NOVOA 09/16/2007 15:36 Electronically signed by: JACQUELINE NOVOA 09/17/2007 17:07 Transcribed: 09/16/2007 22:42 SJ Procedure Note Provider, Historical - 09/17/2007 [facility] [address] [place], [place] [address] Admit Date: 09/16/2007 QUANG ERIC Sex: M Admit Prov: NICK BLANK Date: 1960 Primary Care Prov: ERIC DAI CMRN: [id number] [id number] Ordering Prov: N/A Interpretation CROSSTABLE LATERAL RADIOGRAPH, CERVICAL SPINE, 09/16/2007 History: Cervical spine fusion. Findings: Patient is status post anterior fusion at C5-C6 level.Metal plate and screws are in place. Anteroposterior alignment of thevertebrae is normal. The posterior elements appear intact. Prevertebral softtissues are normal. Impression: Status post anterior fusion at C5-C6 level. Alignment is unchanged.Bony fusion appears to have occurred. . Dictated by: JACQUELINE NOVOA 09/16/2007 15:36 Electronically signed by: JACQUELINE NOVOA 09/17/2007 17:07 Transcribed: 09/16/2007 22:42 SJ Nick Blank MD DIAGNOSTIC IMAGING ORDERABLES Final Result documented in this encounter Visit Diagnoses Diagnosis Displacement of cervical intervertebral disc without myelopathy documented in this encounter
--- OUTSIDE RECORDS SUMMARY | 2024-09-10 09:50 | XMS_ITS | Encounter Summary ---
Author Organization [employer] Address 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 Gender Identity Not on file Sexual Orientation Not on file documented as of this encounter Plan of Treatment Not on file documented as of this encounter Procedures Procedure Name Priority Date/Time Associated Diagnosis Comments HEMOGLOBIN AND HEMATOCRIT Routine 02/16/2006 4:00 PM CDT documented in this encounter Results * HEMOGLOBIN AND HEMATOCRIT (02/16/2006 4:00 PM CDT) HEMOGLOBIN 14.0 13.6 - 16.5 g/dL INTERFACE SYSTEM HEMATOCRIT 41.2 40.0 - 48.0 % INTERFACE SYSTEM 02/16/2006 4:00 PM CDT us Nick Bethea MD HEMATOLOGY ORDERABLES Final R esult INTERFACE SYSTEM Refer to clinic/hospital department documented in this encounter Visit Diagnoses Diagnosis Displacement of cervical intervertebral disc without myelopathy- Primary documented in this encounter
--- OUTSIDE RECORDS SUMMARY | 2024-09-10 09:50 | XMS_ITS | Encounter Summary ---
Author Organization [employer] Address 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 Gender Identity Not on file Sexual Orientation Not on file documented as of this encounter Plan of Treatment Not on file documented as of this encounter Procedures Procedure Name Priority Date/Time Associated Diagnosis Comments CT SOFT TISSUE NECK W CONTRAST Stat 11/07/2007 6:11 PM CDT XR CERVICAL SPINE 4 OR 5 VIEWS Stat 11/07/2007 5:15 PM CDT CBC WITH DIFFERENTIAL Stat 11/07/2007 4:47 PM CDT C-REACTIVE PROTEIN Stat 11/07/2007 4: 47 PM CDT BASIC METABOLIC PANEL Stat 11/07/2007 4:47 PM CDT documented in this encounter Results * CT SOFT TISSUE NECK W CONTRAST (11/07/2007 6:11 PM CDT) Anatomical Region Laterality Modality Neck Other 11/07/2007 6:11 PM CDT Narrative 11/07/2007 6:36 PM CDT [address] [address] [place], [place] [address] Admit Date: 11/07/2007 ERIC FREEMAN Sex: M Admit Prov: ER, AUTHORIZED P Date: 1960 Primary Care Prov: ERIC DAI CMRN: [id number] [id number] [facility] Ordering Prov: N/A Accession Number: [id number] Interpretation Exam: CT soft tissue neck. History: Pain. Scans were performed during intravenous injection of 125 cc Optiray-320. No abnormal soft tissue masses or fluid collections are seen. No vascular abnormalities identified. No adenopathy is seen. No abnormal gas collections or radiopaque foreign bodies are seen. Patient is status post anterior fusion of C5-C6. No acute bony abnormalities identified. . Dictated by: NEETU GALARZA 11/07/2007 18:34 Electronically signed by: NEETU GALARZA 11/07/2007 18:36 Procedure Note Provider, Historical - 11/07/2007 [address] [place], [place] [address] Admit Date: 11/07/2007 ERIC FREEMAN Sex: M Admit Prov: ER, AUTHORIZED P Date: 1960 Primary Care Prov: ERIC DAI CMRN: [id number] [facility] [id number] IMAGING SERVICES Ordering Prov: N/A Interpretation Exam: CT soft tissue neck. History: Pain. Scans were performed during intravenous injection of 125 ccOptiray-320. No abnormal soft tissue masses or fluid collections are seen. Novascular abnormalities identified. No adenopathy is seen. No abnormal gas collections or radiopaque foreign bodies are seen. Patient is statuspost anterior fusion of C5-C6. No acute bony abnormalities identified. . Dictated by: NEETU GALARZA 11/07/2007 18:34 Electronically signed by: NEETU GALARZA 11/07/2007 18:36 us Guru Aragon Jr., MD CT ORDERABLES Final Resu lt * XR CERVICAL SPINE MIN 4+ VW (11/07/2007 5:15 PM CDT) Anatomical Region Laterality Modality Spine Other 11/07/2007 5:15 PM CDT Narrative 11/07/2007 5:31 PM CDT [address] [address] Admit Date: 11/07/2007 ERIC FREEMAN Sex: M Admit Prov: ER, AUTHORIZED P Date: 1960 Primary Care Prov: MARCOSJUICENURYS ERIC Meza CMRN: [id number] Room: [facility] SSN: [id number] IMAGING SERVICES Ordering Prov: N/A Accession Number: [id number] Interpretation Exam: Cervical spine, 5 views. History: Pain. The bones are normally developed and mineralized. Alignment and position is satisfactory. Cervical spine, patient status post anterior fusion at C5-C6. No evidence of acute bony trauma is seen. No lytic or blastic lesions are identified. No significant articular abnormalities are identified. The paraspinous soft tissues are unremarkable. . Dictated by: NEETU GALARZA 11/07/2007 17:30 Electronically signed by: NEETU GALARZA 11/07/2007 17:31 Procedure Note Provider, Historical - 11/07/[address] [address] Admit Date: 11/07/2007 ERIC FREEMAN Sex: M Admit Prov: ER, AUTHORIZED P Date: 1960 Primary Care Prov: MARCOSJUICEERIC NUNO CMRN: [id number] Room: [facility] SSN: [id number] IMAGING SERVICES Ordering Prov: N/A Interpretation Exam: Cervical spine, 5 views. History: Pain. The bones are normally developed and mineralized. Alignment andposition is satisfactory. Cervical spine, patient status post anterior fusion atC5-C6. No evidence of acute bony trauma is seen. No lytic or blastic lesionsare identified. No significant articular abnormalities are identified.The paraspinous soft tissues are unremarkable. . Dictated by: NEETU GALARZA 11/07/2007 17:30 Electronically signed by: NEETU GALARZA 11/07/2007 17:31 Guru Aragon Jr., MD DIAGNOSTIC IMAGING ORDERAB LES Final Result * (ABNORMAL) BASIC METABOLIC PANEL (11/07/2007 4:47 PM CDT) GLUCOSE 135(H) 65 - 99 mg/dL [facility] SODIUM 135 135 - 145 mmol/L [facility] CALCIUM 9.0 8.4 - 10.2 mg/dL [facility] CO2 26 22 - 30 mmol/L [facility] CREATININE 0.73 0.67 - 1.17 mg/dL [facility] POTASSIUM 4.6 3.5 - 4.9 mmol/L [facility] Comment: Moderate hemolysis present. Can cause significant falsely elevated result. Clinical judgement necessary. Redraw if indicated. BUN 16 6 - 20 mg/dL [facility] CHLORIDE 98 96 - 108 mmol/L [facility] GFR, >60 >=60 mL/min/1. 7 sq meter [facility] GFR >60 >=60 mL/min/1. 7 sq meter [facility] Comment: Estimated GFR rate interpretative information for both Americans and non- Americans is available on the [facility] Intranet at: [email or web address] Select: Lab Policies and Procedures Select: Reference Ranges - GFR Blood specimen (specimen) 11/07/2007 4:47 PM CDT 11/07/2007 5:04 PM CDT Guru Aragon Jr., MD CHEMISTRY ORDERABLES Edite d [facility] [address] [place] [address] * (ABNORMAL) C-REACTIVE PROTEIN (11/07/2007 4:47 PM CDT) [facility] CRP 6.3(H) 0.0 - 0.8 mg/dL [facility] Blood specimen (specimen) 11/07/2007 4:47 PM CDT 11/07/2007 5:04 PM CDT Guru Aragon Jr., MD CHEMISTRY ORDERABLES Final Result Performing Organization Address [facility] Co de Phone Number [facility] [address] [place], [place] [address] * CBC WITH DIFFERENTIAL (11/07/2007 4:47 PM CDT) [facility] RBC 4.99 4.50 - 5.40 M/uL [facility] MCHC 33.0 31.5 - 35.5 % [facility] MCV 89.2 82.0 - 99.0 fL [facility] PLATELETS 256 140 - 350 K/uL [facility] HEMOGLOBIN 14.7 13.6 - 16.5 g/dL [facility] RDW 13.6 11.5 - 14.5 % [facility] WBC 6.5 4.0 - 9.8 K/uL [facility] MCH 29.5 27.2 - 32.6 pg [facility] MPV 10.5 9.3 - 12.4 fL [facility] HEMATOCRIT 44.5 40.0 - 48.0 % [facility] RDW-STDEV 44.2 37.1 - 48.7 fL [facility] NEUTROPHILS 63 45 - 70 % [facility] BASOPHILS 0 0 - 2 % [facility] BASOPHILS ABSOLUTE 0.01 0.00 - 0.20 K/uL [facility] MONOCYTES 9 3 - 13 % [facility] MONOCYTE ABSOLUTE 0.59 0.10 - 1.30 K/uL [facility] LYMPHOCYTES 26 16 - 45 % [facility] NEUTROPHIL ABSOLUTE 4.13 1.90 - 7.00 K/uL [facility] EOSINOPHILS 2 0 - 7 % [facility] EOSINOPHIL ABSOLUTE 0.12 0.00 - 0.70 K/uL [facility] LYMPHOCYTE ABSOLUTE 1.69 0.70 - 4.50 K/uL [facility] Blood specimen (specimen) 11/07/2007 4:47 PM CDT 11/07/2007 5:04 PM CDT Guru Aragon Jr., MD HEMATOLOGY ORDERABLES Edit ed INTERFACE SYSTEM Refer to clinic/hospital department [facility] [address] [place], [place] [address] documented in this encounter Visit Diagnoses Not on filedocumented in this encounter
--- OUTSIDE RECORDS SUMMARY | 2024-09-10 09:50 | XMS_ITS | Referral Summary ---
Author Organization [employer] [address] Address [address] [place] [address] Care Team Providers Care Supervisor Unloading Name Role Phone Eric Riley MD Primary Care Provider [phone] Allergies Active Allergy Reactions Criticality Noted Date Comments Lisinopril Cough,Nausea only Low 11/26/2017 Quinine Simvastatin Medications omeprazole 20 mg tablet,delayed release (DR/EC) 20 mg. 0 1 Active Additional Information Patient taking differently:20 mgoral Daily, Reported on 02/26/2023 aspirin 81 mg tablet Take 1 tablet (81 mg total) by mouth daily Active metFORMIN (GLUCOPHAGE) 500 mg tablet Take 2 tablets (1,000 mg total) by mouth daily with breakfast Active nitroglycerin (NITROSTAT) 0.[address] 1 tablet (0.4 mg total) under the tongue every 5 (five) minutes as needed for chest pain 30 tablet 2 2 Active atorvastatin (LIPITOR) 40 mg tablet TAKE 1 TABLET DAILY 90 tablet 3 2 Active levothyroxine (SYNTHROID) 75 mcg tablet Take 1 tablet (75 mcg total) by mouth daily 3 Active Active Problems Problem Noted Date Diagnosed Date Coronary artery disease invo lving [place] coronary artery of [place] heart without angina pectoris 10/29/[address] elevation myocardial infarction (S PÉREZ) 10/29/2017 Hyperlipidemia due to type 2 diabetes mellitus 0 10/29/2017 Presence of stent in coronary artery 10/29/2017 Sensorineural hearing loss (SNHL) of both ears 0 10/25/2015 Presbycusis 10/23/2015 Ear ringing 10/18/2015 Hypothyroidism 12/03/2013 Overview (10/22/2016): HYPOTHYROIDISM NOS Type 2 diabetes mellitus 12/03/2013 Overview (10/22/2016): DMII WO CMP NT ST UNCNTR Social History Tobacco Use Types Packs/Day Years Used Date Smoking Tobacco: Never Smokeless Tobacco: Never Tobacco Cessation:Counseling Given: Not Answered Alcohol Use Standard Drinks/Week Comments No 0 (1 standard drink = 0.6 oz pur e alcohol) Sex and Gender Information Value Date Recorded Sex Assigned at Not on file Legal Sex Male 1:06 AM CORPORATE ACCOUNTING MANAGER Gender Identity Male 07/16/2021 10:51 AM CORPORATE ACCOUNTING MANAGER Sexual Orientation Not on file Last Filed Vital Signs Vital Sign Reading Time Taken Comments Blood Pressure 100/60 02/23/2024 10:29 AM CDT Pulse 72 02/23/2024 10:29 AM CDT Temperature - - Respiratory Rate 16 12/29/2019 11:09 AM CDT Oxygen Saturation 98% 02/23/2024 10:29 AM CDT Inhaled Oxygen Concentration - - Weight 70.9 kg (156 lb 6.4 oz) 02/23/2024 10:29 AM CDT Height 177.8 cm (5' 10 ) 02/23/2024 10:29 AM CDT Body Mass Index 22.44 02/23/2024 10:29 AM CDT Plan of Treatment Not on file Procedures Procedure Name Priority Date/Time Associated Diagnosis Comments POCT LIPID PANEL Routine 02/23/2024 10:3 4 AM CDT Lipid screening from Last 3 Months or Most Recently Relevant to Health Maintenance Results * POCT lipid panel (02/23/2024 10:34 AM CDT) Cholesterol, POC 173 mg/dL HDL, POC 45 mg/dL Triglycerides, POC 153 mg/dL LDL Cholesterol POC 97 mg/dL Chol/HDL Ratio, POC 2.2 Non-HDL Cholesterol, POC 128 mg/dL Cholesterol Total, POC 173 mg/dL Capillary blood 02/23/2024 1 0:34 AM CDT Eric Esposito MD POINT OF CARE TEST ORDER TANIA Final Result from Last 3 Months or Most Recently Relevant to Health Maintenance Insurance MEDICARE [facility] Care Teams Supervisor Unloading Relationship Specialty Start Date End Date Eric Riley MD PCP - General 08/29/10
--- OUTSIDE RECORDS SUMMARY | 2024-09-10 09:50 | XMS_ITS | Encounter Summary ---
Author Organization [employer] Address 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
--- OUTSIDE RECORDS SUMMARY | 2024-09-10 09:50 | XMS_ITS | Clinical Summary ---
Author Organization [facility] [address] Address [address] [place] [address] Care Team Providers Care Logistics Lead Name Role Phone Eric Riley MD Primary Care Provider [phone] Allergies Active Allergy Reactions Criticality Noted Date [...] Diagnosed Date Coronary artery disease invo lving [place] coronary artery of [place] heart without angina pectoris 10/29/[address] elevation myocardial infarction (S PÉREZ) 10/29/2017 Hyperlipidemia due to type 2 diabetes mellitus 0 10/29/2017 Presence of stent in coronary artery 10/29/2017 Sensorineural hearing loss (SNHL) of both ears 0 10/25/2015 Presbycusis 10/23/2015 Ear ringing 10/18/2015 Hypothyroidism 12/03/2013 Overview (10/22/2016): HYPOTHYROIDISM NOS Type 2 diabetes mellitus 12/03/2013 Overview (10/22/2016): DMII WO CMP NT ST [facility] Surgical History Surgery Date Site/Laterality Comments SPINE SURGERY 12/19/2007 - 01/17/2008 Medical History Medical History Date Comments Hx Other Medical prediabates Hx Other Medical esophageal stri cture s/p dilation Gastroesophageal reflux disease GERD Hyperlipidemia Hyperlipidemia Arthritis Clotting disorder (CMS/HCC) (HCC) April Diabetes mellitus ([facility]) Heart disease 10/12/17 Thyroid disease Family History Medical History Relation Name Comments Alzheimer's disease Father Haider Freeman Arthritis Father Haider Freeman Cancer Father Haider Freeman Hearing loss Father Haider Freeman Diabetes Mother Teri Freeman Diabetes type II Other 1 Family hist ory of Diabetes -Type 2; Other Other 2 No family histo ry of Thyroid disorder; Relation Name Status Comments Father Haider Freeman Mother Teri Freeman Other 1 Other 2 Social History Tobacco Use Types Packs/Day Years Used Date Smoking Tobacco: Never Smokeless Tobacco: Never Tobacco Cessation:Counseling Given: Not Answered Alcohol Use Standard Drinks/Week Comments No 0 (1 standard drink = 0.6 oz pur e alcohol) Sex and Gender Information Value Date Recorded Sex Assigned at Not on file Legal Sex Male 1:06 AM DIRECTOR OF INSTRUCTIONAL TECHNOLOGY Gender Identity Male 07/16/2021 10:51 AM DIRECTOR OF INSTRUCTIONAL TECHNOLOGY Sexual Orientation Not on file Obstetrics History Last Filed Vital Signs Vital Sign Reading [...] 02/23/2024 10:29 AM CDT Plan of Treatment Health Maintenance Due Date Last Done Comments Albumin Creatinine Ratio, Urine 1960 Colon Cancer Screening-Colonoscopy 1960 Depression Screening 1960 Fall Risk Assessment 1960 Hemoglobin A1C 1960 Hepatitis C Screening 1960 Prostate Cancer Screening-PSA 1960 eGFR 1960 Dilated Eye Exam 1960 Foot Exam 1960 Hepatitis B Screening 02/08/1976 Pneumococcal vaccine 65+ (1 of 2 - PCV) 1977 Zoster Vaccine (1 of 2) 02/08/2008 Well Visit 65+ 2023 Influenza Vaccine (#1) 2024 05/20/2018 Lipid Panel 02/22/2025 02/23/2024, 06/0 01/2023, 02/20/2022, Additional history exists DTaP/Tdap/Td Vaccine (2 - Td or Tdap) 12/19/2026 12/19/2016 Procedures Procedure Name Priority Date/Time Associated Diagnosis [...] Recently Relevant to Health Maintenance Insurance MEDICARE [facility] MEDICARE [facility] Care Teams Logistics Lead Relationship Specialty Start Date End Date Eric Riley MD PCP - General 08/29/10
--- NOTE | 2024-09-10 09:53 | ECG_ITS ---
Test Date: 2024-09-10 09:08:34 Measurements Intervals [place] Rate: 63 P: 35 ME: 197 QRS: 59 QRSD: 100 T: 30 QT: 412 QTc: 423 Interpretive Statements SINUS RHYTHM INCOMPLETE RIGHT BUNDLE BRANCH BLOCK BASELINE ARTIFACT- II, III, AVR, AVL, AVF BORDERLINE ECG No previous ECG available for comparison Electronically Signed On 09-10-2024 10:38:34 EFFICIENCY CLERK by Kenneth Townsend D.O.
[2024-09-10 10:07] VITALS: BP 110/68; PULSE 69; RESP 16; TEMP 36.4; O2SAT 100
--- OUTSIDE RECORDS SUMMARY | 2024-09-10 11:20 | XMS_ITS | Clinical Summary ---
Author Organization [facility] [address] Address [address] [place] [address] Care Team Providers Care Slime Plant Operator Name Role Phone Eric Riley MD Primary Care Provider [phone] Allergies Active Allergy Reactions Criticality Noted Date [...] Diagnosed Date Coronary artery disease invo lving [place] coronary artery of [place] heart without angina pectoris 10/29/2017 History of [...] Clotting disorder (CMS/HCC) (HCC) April Diabetes mellitus ([facility]) Heart disease 10/12/17 Thyroid disease Family History [...] on file Legal Sex Male 1:06 AM RESOURCE CENTER TEACHER Gender Identity Male 07/16/2021 10:51 AM RESOURCE CENTER TEACHER Sexual Orientation Not on file Obstetrics History [...] Recently Relevant to Health Maintenance Insurance MEDICARE [facility]ICARE [facility] Care Teams Slime Plant Operator Relationship Specialty Start Date End Date Eric Riley MD PCP - General 08/29/10
--- OUTSIDE RECORDS SUMMARY | 2024-09-10 11:20 | XMS_ITS | Continuity of Care Document ---
Author Organization [facility] Address [address] [place] [address] Phone Care Team Providers Care Orchid Grower Name Role Phone Adalid Moser DO Unavailable Unavailable Advance Directives Directive Yes / No Effective Date File Name No Information Encounters Encounter Description Practice Location Reason(s) For Visit Diagnoses Date Provider Providers Copied on Encounter [facility], [address], [place], [place], [id number], [place] tel:[phone] [facility] No Information Ehsan Florez. [address] [place], [address], [place]. tel: [phone] Family History Family Member Type Diagnosis Age [...]
--- OUTSIDE RECORDS SUMMARY | 2024-09-10 11:20 | XMS_ITS | Encounter Summary ---
Author Organization [facility] Address 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 Gender Identity Not on file Sexual Orientation Not on file documented as of this encounter Plan of Treatment Not on file documented as of this encounter Procedures Procedure Name Priority Date/Time Associated Diagnosis Comments XR CERVICAL SPINE 1 VW Routine 09/16/2007 3:20 PM ASSISTANT CONTROLLER documented in this encounter Results * XR CERVICAL SPINE 1 VW (09/16/2007 3:20 PM ASSISTANT CONTROLLER) Anatomical Region Laterality Modality Spine Other 09/16/2007 3:20 PM ASSISTANT CONTROLLER Narrative 09/17/2007 5:07 PM ASSISTANT CONTROLLER [address] [address] Admit Date: 09/16/2007 ERIC FREEMAN Sex: M Admit Prov: NICK BLANK Date: 1960 Primary Care Prov: ERIC DAI CMRN: [id number] Room: [facility] SSN: [id number] IMAGING SERVICES Ordering Prov: N/A Accession Number: [id number] Interpretation CROSSTABLE LATERAL RADIOGRAPH, CERVICAL SPINE, 09/16/2007 [...] SJ Procedure Note Provider, Historical - 09/17/2007 [facility] [address] [place], [place] [address] Admit Date: 09/16/2007 QUANG ERIC Sex: M Admit Prov: NICK BLANK Date: 1960 Primary Care Prov: ERIC DAI CMRN: [id number] [id number] Ordering Prov: N/A Interpretation CROSSTABLE [...]
--- OUTSIDE RECORDS SUMMARY | 2024-09-10 11:20 | XMS_ITS | Encounter Summary ---
Author Organization [employer] Address 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
--- OUTSIDE RECORDS SUMMARY | 2024-09-10 11:20 | XMS_ITS | Encounter Summary ---
Author Organization [employer] Address [address] [place] [address] Care Team Providers Care Diesel Service Journeyman Name Role Phone Unavailable Primary Care Provider Unavailabl e Encounter Details Date Type Department Care Team (Late st Contact Info) Description 02/16/2006 Outpatient Historical [facility] Support Serv. ([facility]) [address] 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
--- OUTSIDE RECORDS SUMMARY | 2024-09-10 11:20 | XMS_ITS | Encounter Summary ---
Author Organization [employer] Address 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
--- OUTSIDE RECORDS SUMMARY | 2024-09-10 11:20 | XMS_ITS | Referral Summary ---
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
--- OUTSIDE RECORDS SUMMARY | 2024-09-10 11:20 | XMS_ITS | Encounter Summary ---
Author Organization [employer] Address 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 History: [...] 18:36 Procedure Note Provider, Historical - 11/07/2007 [place] [address] [place], [place] [address] Admit Date: 11/07/2007 ERIC FREEMAN Sex: M Admit Prov: ER, AUTHORIZED P Date: 1960 Primary Care Prov: ERIC DAI CMRN: [id number] [facility] [id number] [facility] Ordering Prov: N/A Interpretation Exam: [...] PM CDT Narrative 11/07/2007 5:31 PM CDT [address] [address] Admit Date: 11/07/2007 ERIC FREEMAN Sex: M Admit Prov: ER, AUTHORIZED P Date: 1960 Primary Care Prov: MARCOSJUICENURYS ERIC Meza CMRN: [id number] Room: [facility] SSN: [id number] IMAGING SERVICES Ordering Prov: N/A Accession Number: [id number] Interpretation Exam: Cervical spine, 5 views. History: [...] 17:31 Procedure Note Provider, Historical - 11/07/[address] [address] Admit Date: 11/07/2007 ERIC FREEMAN Sex: M Admit Prov: ER, AUTHORIZED P Date: 1960 Primary Care Prov: MARCOSJUICEERIC NUNO CMRN: [id number] [facility] [id number] IM[facility] Ordering Prov: N/A Interpretation Exam: [...] CDT) GLUCOSE 135(H) 65 - 99 mg/dL [facility] SODIUM 135 135 - 145 mmol/L [facility] CALCIUM 9.0 8.4 - 10.2 mg/dL [facility] CO2 26 22 - 30 mmol/L [facility] CREATININE 0.73 0.67 - 1.17 mg/dL [facility] POTASSIUM 4.6 3.5 - 4.9 mmol/L [facility] Comment: Moderate hemolysis present. Can cause significant falsely elevated result. Clinical judgement necessary. Redraw if indicated. BUN 16 6 - 20 mg/dL [facility] CHLORIDE 98 96 - 108 mmol/L [facility] GFR, >60 >=60 mL/min/1. 7 sq meter [facility] GFR >60 >=60 mL/min/1. 7 sq meter [facility] Comment: Estimated GFR rate interpretative information for both Americans and non- Americans is available on the [facility] Intranet at: [email or web address] Select: Lab Policies and Procedures Select: Reference Ranges - GFR Blood specimen (specimen) 11/07/2007 4:47 PM CDT 11/07/2007 5:04 PM CDT Guru Aragon Jr., MD CHEMISTRY ORDERABLES Edite d [facility] [address] [place] [address] * (ABNORMAL) C-REACTIVE PROTEIN (11/07/2007 4:47 PM CDT) [facility] CRP 6.3(H) 0.0 - 0.8 mg/dL [facility] Blood specimen (specimen) 11/07/2007 4:47 PM CDT 11/07/2007 5:04 PM CDT Guru Aragon Jr., MD CHEMISTRY ORDERABLES Final Result Performing Organization Address [facility]/[employer] Phone Number [facility] [address] [place], [place] [address] * CBC WITH DIFFERENTIAL (11/07/2007 4:47 PM CDT) [facility] RBC 4.99 4.50 - 5.40 M/uL [facility] MCHC 33.0 31.5 - 35.5 % [facility] MCV 89.2 82.0 - 99.0 fL [facility] PLATELETS 256 140 - 350 K/uL [facility] HEMOGLOBIN 14.7 13.6 - 16.5 g/dL [facility] RDW 13.6 11.5 - 14.5 % [facility] WBC 6.5 4.0 - 9.8 K/uL [facility] MCH 29.5 27.2 - 32.6 pg [facility] MPV 10.5 9.3 - 12.4 fL [facility] HEMATOCRIT 44.5 40.0 - 48.0 % [facility] RDW-STDEV 44.2 37.1 - 48.7 fL [facility] NEUTROPHILS 63 45 - 70 % [facility] BASOPHILS 0 0 - 2 % [facility] BASOPHILS ABSOLUTE 0.01 0.00 - 0.20 K/uL [facility] MONOCYTES 9 3 - 13 % [facility] MONOCYTE ABSOLUTE 0.59 0.10 - 1.30 K/uL [facility] LYMPHOCYTES 26 16 - 45 % [facility] NEUTROPHIL ABSOLUTE 4.13 1.90 - 7.00 K/uL [facility] EOSINOPHILS 2 0 - 7 % [facility] EOSINOPHIL ABSOLUTE 0.12 0.00 - 0.70 K/uL [facility] LYMPHOCYTE ABSOLUTE 1.69 0.70 - 4.50 K/uL [facility] Blood specimen (specimen) 11/07/2007 4:47 PM CDT 11/07/2007 5:04 PM CDT Guru Aragon Jr., MD HEMATOLOGY ORDERABLES Edit ed INTERFACE SYSTEM Refer to clinic/hospital department [facility] [address] [place], [place] [address] documented in this encounter Visit Diagnoses Not on filedocumented in this encounter
--- OUTSIDE RECORDS SUMMARY | 2024-09-10 11:20 | XMS_ITS | Clinical Summary ---
Author Organization [facility] Address [address] 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
--- NOTE | 2024-09-10 12:28 | ED_ITS ---
HPI - Extremity Problem General Chief complaint: Extremity Problem,Nontraumatic Stated complaint: left arm and neck pain Time Seen by Provider: 09/10/24 11:14 History of Present Illness HPI Narrative: 64-year-old male with a past medical history including prior HI with balloon angioplasty with Dr. Esposito in 2018. Patient presented to urgent care this morning with complaints of left-sided shoulder pain and some paresthesias and tingling. Stated the pain went up to his jaw on the night. Started about 8:00 p.m. last night. States his positional and feels very similar to last time he had a heart attack in 2018. States his pain and symptoms have resolved upon arrival to the emergency department. Denies any chest pain shortness a breath. No nausea or vomiting. No back pain or fever, chills. Went to urgent care which provided him 4 baby aspirin and sent him to the ED via private vehicle as he refused ambulance. Patient herself has no complaints while lying in the stretcher during my examination. He describes the paresthesias in the left shoulder and neck with pain in the shoulder and jaw that have both subsided. Denies any history of stroke or CVA. Endorses some hypertension hyperlipidemia. Takes baby aspirin daily. No other anticoagulations. Related Data Home Medications ?Medication ?Instructions ?Recorded ?Confirmed ?Last Taken ?Type aspirin 81 mg tablet,delayed 81 mg PO DAILY 08/18/19 09/10/24 08/13/22 History release (Adult Low Dose Aspirin) nitroglycerin 0.4 mg sublingual 0.4 mg sublingual PRN 02/08/21 09/10/24 02/20/21 History tablet Allergies Allergy/AdvReac Type Severity Reaction Status Date / Time quinine Allergy Intermediate Skin Verified 09/10/24 11:16 Reaction Quinolones Allergy Intermediate RASH Verified 09/10/24 11:16 simvastatin Allergy Intermediate myalgias Verified 09/10/24 11:16 Review of Systems 2 Review of Systems: As reviewed above in HPI [facility] Past Medical History Medical History Vitreous detachment Sprain of left rotator cuff capsule CAD (coronary artery disease) History of heart attack GERD (gastroesophageal reflux disease) 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 Rectal Hemorrhage Metatarsalgia, right foot Osteonecrosis of both hips Arthritis of both hips Hypothyroid ASHD (arteriosclerotic heart disease) Acute thyroiditis Hyperlipidemia, unspecified Meniere's disease, unspecified Stricture and stenosis of esophagus Type 2 diabetes mellitus with hyperglycemia Surgical History Surgical History S/P right inguinal hernia repair robotic assisted right inguinal hernia repair with mesh 08/14/22 History of coronary artery stent placement 1 stent 09/2017 Family History Family History Father Family history of lymphoma Family history of cardiovascular disease Parkinsons disease Mother Diabetes mellitus Hypertension Family history of elevated blood lipids Family history of cardiovascular disease Other Depression Family history of arthritis Family history of malignant neoplasm of bone Social History Social History Social History: Caffeine-coffee/tea Smoking status: Never smoker Alcohol intake: current Alcohol use details: VERY RARE Substance use: never Substance use type: does not use Lack of Transportation: No Lack of Food: Never True Current Housing: I Have Housing Concerned About Future Housing: No Difficulty Paying Gas/Electric Bills: No Difficulty Paying for Meds: No Currently Unemployed: No Education: Trade/Vocational Certificate Difficulty w/ Childcare or Family Care: No Living arrangements: with family Spiritual care concerns: No Exam 2 Narrative: GENERAL: [Well-appearing, well-nourished, and in no acute distress.] HEAD: [Normocephalic, atraumatic.] EYES: [PERRLA and EOMI.] ENT: Nares clear, no rhinorrhea or epistaxis. Mucous membranes moist. NECK: Supple. CHEST: [Clear to auscultation. No respiratory distress.] HEART: [Regular rate and rhythm]. No murmur heard. [Normal peripheral pulses.] ABDOMEN: [Soft, nondistended], [nontender], [No rigidity or guarding] EXTREMITIES: Normal range of motion. [No edema.] Negative Spurling test bilaterally SKIN: Warm, dry, no rash. NEURO: [No focal deficits]. Alert and oriented [x3.] Normal strength and sensation throughout both arms and legs, no facial asymmetry or facial droop. No ataxia in the arms or legs. No nystagmus. PSYCH: [Normal mood and affect.] Course Vital Signs Vital signs: Vital Signs Temperature 36.4 C 09/10/24 10:07 Pulse Rate 69 09/10/24 10:07 Respiratory Rate 16 09/10/24 10:07 Blood Pressure 110/68 09/10/24 10:07 Pulse Oximetry 100 09/10/24 10:07 Temperature 36.4 C 09/10/24 10:07 Pulse Rate 75 09/10/24 12:48 Respiratory Rate 16 09/10/24 12:48 Blood Pressure 118/73 09/10/24 12:48 Pulse Oximetry 99 09/10/24 12:48 MDM - Extremity (Nontraumatic) MDM Narrative Medical decision making narrative: 64-year-old male with history of coronary disease with a single stent placed in 2018, hypertension, hyperlipidemia, diabetes. Presents to the ER with concerns of left-sided shoulder pain and tingling radiated towards his neck. Started a p.m. last night and resolved upon arrival to the ED today. Patient did go to urgent care. He received 324 mg of baby aspirin. His examination is reassuring, his normal vital signs without any hypertension, tachycardia, fever, hypoxia. Normal neurological assessment, 2+ radial and dorsalis pedis pulse. Given his history of HI with similar presenting symptoms suspicion for ACS is higher although less likely given his symptom resolution normal vital signs. Angina, muscle spasm, musculoskeletal strain, cervical radiculopathy or also possible and on the differential. Low suspicion for intracranial pathology such as stroke or TIA but with the paresthesias a CT of the head was ordered. Chest x-ray, EKG, troponin serially, CBC, CMP and lipase were obtained. Patient presently has no symptoms and denies any pain or nausea. Will re-evaluate and placed him on continuous pulse oximetry and environmental monitoring specialist. Workup shows no leukocytosis or significant anemia. Normal platelet count. Coagulation studies within normal limits. Electrolytes within normal limits, normal renal function. Normal glucose, normal LFTs. Negative troponin x2. Negative lipase. CT of the head shows no acute intracranial process. Repeat 3 are EKG shows no acute changes. Patient was re-evaluated multiple times and still asymptomatic during his visit here in the emergency department. Normal vital signs. Given his unremarkable cardiac workup negative head CT I believe he can be safely discharged home at this juncture given his lack of symptoms. Patient felt very comfortable with this plan and has close outpatient follow-up available to him. Patient was instructed on strict return precautions and given discharge instructions at this time. Lab Data 09/10/24 12:47 09/10/24 12:47 Labs: Lab Results 09/10/24 09/10/24 Range/Units 12:47 14:29 WBC 4.5 (4.5-10.0) K/mm3 RBC 4.61 (4.6-6.20) M/mm3 Hgb 13.7 L (14.0-18.0) g/dL Hct 42.2 (42.0-52.0) % MCV 91.5 (80-100) fl MCH 29.7 (26-34) pg MCHC 32.5 (32-36) g/dl RDW 12.9 (11.5-14.5) % Plt Count 238 (150-375) k/mm3 MPV 10.0 (7.4-10.4) fl Immature Gran % (Auto) 0.2 (0-0.5) % Neut % (Auto) 43.2 L (45.5-73.1) % Lymph % (Auto) 45.2 H (18.3-44.2) % [place] % (Auto) 9.2 H (2.6-8.5) % Eos % (Auto) 1.8 (0-4.4) % Baso % (Auto) 0.4 (0.2-1.2) % Lymph # (Auto) 2.01 (0.9-3.2) K/mm3 [place] # (Auto) 0.4 (0.1-0.6) K/mm3 Eos # (Auto) 0.1 (0-0.3) K/mm3 Baso # (Auto) 0.0 (0.0-0.1) K/mm3 Abs Immat Gran (auto) 0.01 (0.00-0.031) K/mm3 Absolute Neuts (auto) 1.9 (1.3-6.7) K/mm3 Absolute Nucleated RBC 0.000 (0.0-0.012) K/mm3 Nucleated RBC % 0.0 (0.0-0.2) % PT 12.7 (11.1-14.7) Seconds INR 0.9 APTT 26.0 (22.3-36.8) Seconds Sodium 141 (137-145) mmol/L Potassium 4.5 (3.4-5.0) mmol/L Chloride 102 (98-107) mmol/L Carbon Dioxide 29 (22-30) mmol/L Anion Gap 10 (4-12) mmol/L BUN 19 (9-20) mg/dL Creatinine 0.68 L (0.7-1.3) mg/dL Estim Creat Clear Calc 87 ml/min Estimated GFR > 60 (59 - ) Glucose 124 H (65-110) mg/dL Calcium 9.8 (8.4-10.2) mg/dL Magnesium 1.8 (1.6-2.3) mg/dL Total Bilirubin 0.6 (0.2-1.3) mg/dL AST 19 (17-59) U/L ALT 30 (6-50) U/L Alkaline Phosphatase 66 (38-126) U/L Troponin I < 0.012 < 0.012 (0.000-0.034) ng/mL Total Protein 8.0 (6.3-8.2) g/dL Albumin 4.5 (3.5-5.1) g/dL Lipase 249 (23-300) U/L ECG Data EKG #1: Attestation EKG: I personally reviewed and interpreted this ECG as follows: ECG completion date: 09/10/24 ECG completion time: 10:02 Prior ECG tracings: available for review Interpretation: Incomplete right bundle-branch block, no ST segment elevations, depressions or inversions. Good precordial R-wave transition, [place] interval 182, QRS interval 101, QTC interval 423. Overall interpretation normal sinus rhythm, incomplete right bundle-branch block, compared to previous EKG earlier today no significant interval change. Discharge Plan Discharge Clinical Impression: Paresthesia of left arm, History of HI (myocardial infarction), Neck pain on left side, Pain in lower jaw Patient Disposition: Home, Self-Care Condition: Stable Instructions: Antibiotic Form Additional Instructions: Your cardiac workup here was negative, no signs of damage or concerning findings on your EKGs here. Your head CT shows no acute findings. Your laboratory studies are within normal limits. No emergent concerns at this visit especially with your resolution of symptoms. Follow-up with your regular doctor, return with any new or worsening concerns at any time. Patient Language: Romanian Prescriptions: No Action aspirin [Adult Low Dose Aspirin] 81 mg tablet,delayed release (DR/EC) 81 mg PO DAILY (DME) FreeStyle Viry 3 Sensor Device See Rx Instructions .Route Qty: 13 3RF Rx Instructions: As directed atorvastatin 40 mg tablet 40 mg PO DAILY Qty: 90 3RF omeprazole 20 mg capsule,delayed release(DR/EC) 20 mg PO DAILY Qty: 90 3RF Rx Instructions: Take 1 capsule by mouth once daily insulin degludec [Tresiba FlexTouch U-100] 100 unit/mL (3 mL) insulin pen 10 unit subcut DAILY Qty: 15 5RF nitroglycerin 0.4 mg tablet, sublingual 0.4 mg sublingual PRN (DME) FreeStyle Viry 2 [place] Misc See Rx Instructions .ROUTE .MEDSUPPLY Qty: 1 0RF Rx Instructions: As directed (DME) FreeStyle Viry 2 Sensor Kit See Rx Instructions .ROUTE .MEDSUPPLY Qty: 13 3RF Rx Instructions: As directed metformin 1,000 mg tablet extended release 24 hr 1,000 mg PO DAILY Qty: 90 1RF (DME) NovoFine Plus 32 gauge x 1/6 needle See Rx Instructions .Route Qty: 100 3RF Rx Instructions: As directed use with Tresiba pen levothyroxine 75 mcg tablet 75 mcg PO DAILY Qty: 90 1RF Follow-up/Referrals: Eric Riley MD [Primary Care Provider] - 1 Week (ED follow-up) Time of Disposition: 15:16
[2024-09-10 12:48] VITALS: BP 118/73; PULSE 75; RESP 16; O2SAT 99
[2024-09-10 12:55] LABS: Basophils Percent Auto 0.4 % (0.2-1.2); Eosinophils Absolute Auto 0.1 K/mm3 (0-0.3); Eosinophils Percent Auto 1.8 % (0-4.4); Hematocrit 42.2 % (42.0-52.0); Hemoglobin 13.7 g/dL (14.0-18.0); Immature Granulocyte Absolute 0.01 K/mm3 (0.00-0.031); Immature Granulocyte Percent A 0.2 % (0-0.5); Lymphocytes Absolute Auto 2.01 K/mm3 (0.9-3.2); Lymphocytes Percent Auto 45.2 % (18.3-44.2); Mean Corpuscular HGB Conc 32.5 g/dl (32-36); Mean Corpuscular Hemoglobin 29.7 pg (26-34); Mean Corpuscular Volume 91.5 fl (80-100); Monocytes Absolute Auto 0.4 K/mm3 (0.1-0.6); Monocytes Percent Auto 9.2 % (2.6-8.5); Neutrophils Absolute Auto 1.9 K/mm3 (1.3-6.7); Neutrophils Percent Auto 43.2 % (45.5-73.1); Platelet Count Result 238 k/mm3 (150-375); Red Blood Count 4.61 M/mm3 (4.6-6.20); Red Cell Distribution Width 12.9 % (11.5-14.5); White Blood Count 4.5 K/mm3 (4.5-10.0)
[2024-09-10 13:11] LABS: Alanine Aminotransferase 30 U/L (6-50); Albumin Level 4.5 g/dL (3.5-5.1); Alkaline Phosphatase 66 U/L (38-126); Anion Gap 10 mmol/L (4-12); Aspartate Amino Transferase 19 U/L (17-59); Bilirubin,Total 0.6 mg/dL (0.2-1.3); Blood Urea Nitrogen 19 mg/dL (9-20); Calcium 9.8 mg/dL (8.4-10.2); Carbon Dioxide 29 mmol/L (22-30); Chloride 102 mmol/L (98-107); Estimated CRCL calculation 87 ml/min; Estimated Glomerular Filt Rate > 60; Glucose 124 mg/dL (65-110); Lipase 249 U/L (23-300); Magnesium 1.8 mg/dL (1.6-2.3); Potassium 4.5 mmol/L (3.4-5.0); Sodium 141 mmol/L (137-145)
[2024-09-10 13:17] LABS: INR 0.9; Prothrombin Time 12.7 Seconds (11.1-14.7)
[2024-09-10 13:21] LABS: Troponin I < 0.012 ng/mL (0.000-0.034)
[2024-09-10 15:03] LABS: Troponin I < 0.012 ng/mL (0.000-0.034)
[2024-09-10 15:23] VITALS: BP 128/80; PULSE 79; RESP 19; O2SAT 98
== END 2024-09-10 15:25 | disposition home or self-care (01) ==
PROVIDERS: Emergency Provider Student in an Organized Health Care Education/Training Program; PCP Family Medicine
DX: M54.2 Cervicalgia (principal); R68.84 Jaw pain; R20.2 Paresthesia of skin; I10 Essential (primary) hypertension; I25.2 Old myocardial infarction; I25.10 Atherosclerotic heart disease of native coronary artery without angina pectoris; E78.5 Hyperlipidemia, unspecified; E11.9 Type 2 diabetes mellitus without complications; E03.9 Hypothyroidism, unspecified; K21.9 Gastro-esophageal reflux disease without esophagitis; M16.0 Bilateral primary osteoarthritis of hip; H81.09 Meniere's disease, unspecified ear; Z95.5 Presence of coronary angioplasty implant and graft; I45.10 Unspecified right bundle-branch block; Z79.82 Long term (current) use of aspirin; Z79.4 Long term (current) use of insulin; Z79.84 Long term (current) use of oral hypoglycemic drugs; Z79.899 Other long term (current) drug therapy
CPT/HCPCS: 36415; 70450; 80053; 83690; 83735; 84484; 85025; 85610; 85730; 93005; 96360; 99284

== ENCOUNTER 2024-09-12 20:36 | Inpatient (IN) | payer MEDICARE, SELFPAY ==
--- NOTE | ~2024-09-12 | XR_ITS ---
EXAMINATION: XR chest 1V portable Exam Date/Time: 09/12/2024 20:53 FIELD SEISMOLOGIST HISTORY: chest pain Comparison: 07/21/2018. RESULT: Lines, tubes, and devices: Partially visualized ACDF hardware. Lungs and pleura: Clear. Cardiomediastinal silhouette: Stable. Other: No acute osseous or upper abdominal finding. IMPRESSION: No acute cardiopulmonary process. Reviewed, dictated and finalized at location K. D SEISMOLOGIST
[2024-09-12 20:38] VITALS: BP 127/75; PULSE 81; RESP 25; TEMP 36.4; O2SAT 100
--- NOTE | 2024-09-12 20:42 | ECG_ITS ---
Test Date: 2024-09-12 20:39:01 Measurements Intervals [place] Rate: 81 P: 38 [place]: 173 QRS: 49 QRSD: 91 T: 92 QT: 363 QTc: 424 Interpretive Statements SINUS RHYTHM INCOMPLETE RIGHT BUNDLE BRANCH BLOCK INFERIOR ST ELEVATION MYOCARDIAL INFARCT- ACUTE RECIPROCAL ST DEPRESSION IN HIGH LATERAL LEADS BASELINE ARTIFACT- I, II, III, AVR, AVL, AVF, V1-V6 ABNORMAL ECG Compared to ECG 09/10/2024 10:02:05 STEMI NOW PRESENT Electronically Signed On 09-13-2024 06:39:31 [facility] by Kenneth Townsend D.O.
[2024-09-12 20:43] VITALS: PULSE 80
[2024-09-12 20:44] VITALS: O2SAT 100
--- NOTE | 2024-09-12 20:44 | ED_ITS ---
HPI - General Adult General Chief complaint: Chest Pain Stated complaint: STEMI Time Seen by Provider: 09/12/24 20:39 History of Present Illness HPI narrative: Patient is a 64-year-old gentleman presents emergency department with chief complaint of chest pain. The patient states that he has prior history of an CA in 2019 that required stenting patient reports that this evening he started having pain around 7:30 p.m. reports the pain is a pressure in his chest reports feels similar to when he had his CA. The patient reports radiates to his arm patient reports that called EMS and was found to have ST elevations with reciprocal depressions on his EKG. The patient is activated as STEMI in the field. Related Data Home Medications ?Medication ?Instructions ?Recorded ?Confirmed ?Last Taken ?Type aspirin 81 mg tablet,delayed 81 mg PO DAILY 08/18/19 09/10/24 08/13/22 History release (Adult Low Dose Aspirin) nitroglycerin 0.4 mg sublingual 0.4 mg sublingual PRN 02/08/21 09/10/24 02/20/21 History tablet Allergies Allergy/AdvReac Type Severity Reaction Status Date / Time quinine Allergy Intermediate Skin Verified 09/10/24 11:16 Reaction Quinolones Allergy Intermediate RASH Verified 09/10/24 11:16 simvastatin Allergy Intermediate myalgias Verified 09/10/24 11:16 Review of Systems Review of Systems: A 10 system review of systems was completed on the patient and is negative except for what is stated in the HPI. Nursing and ancillary documentation was reviewed. 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 Rectal Hemorrhage Metatarsalgia, right foot Osteonecrosis of both hips Arthritis of both hips Hypothyroid ASHD (arteriosclerotic heart disease) Acute thyroiditis Hyperlipidemia, unspecified Meniere's disease, unspecified Stricture and stenosis of esophagus Type 2 diabetes mellitus with hyperglycemia Surgical History Surgical History H/O cervical spine surgery S/P right inguinal hernia repair robotic assisted right inguinal hernia repair with mesh 08/14/22 History of coronary artery stent placement 1 stent 09/2017 Family History Family History Father Family history of lymphoma Family history of cardiovascular disease Parkinsons disease Mother Diabetes mellitus Hypertension Family history of elevated blood lipids Family history of cardiovascular disease Other Depression Family history of arthritis Family history of malignant neoplasm of bone Social History Social History Social History: Caffeine-coffee/tea Smoking status: Never smoker Alcohol intake: current Alcohol use details: VERY RARE Substance use: never Substance use type: does not use Lack of Transportation: No Lack of Food: Never True Current Housing: I Have Housing Concerned About Future Housing: No Difficulty Paying Gas/Electric Bills: No Difficulty Paying for Meds: No Currently Unemployed: No Education: Trade/Vocational Certificate Difficulty w/ Childcare or Family Care: No Living arrangements: with family Spiritual care concerns: No Exam Narrative: GENERAL: Well-appearing, well-nourished, and in no acute distress. HEAD: Normocephalic, atraumatic. EYES: PERRLA and EOMI. ENT: Nares clear, no rhinorrhea or epistaxis. Mucous membranes moist. NECK: Supple. CHEST: Clear to auscultation. No respiratory distress. HEART: Regular rate and rhythm. No murmur heard. Normal peripheral pulses. ABDOMEN: Soft, nontender, nondistended, normal active bowel sounds. EXTREMITIES: Normal range of motion. No edema. SKIN: Warm, dry, no rash. NEURO: No focal deficits. Alert and oriented x3. PSYCH: Normal mood and affect. Course Vital Signs Vital signs: Vital Signs Pulse Rate 81 09/12/24 20:38 Respiratory Rate 25 H 09/12/24 20:38 Blood Pressure 127/75 09/12/24 20:38 Pulse Oximetry 100 09/12/24 20:38 Oxygen Delivery Room Air 09/12/24 20:38 Pulse Rate 80 09/12/24 20:43 Respiratory Rate 25 H 09/12/24 20:38 Blood Pressure 127/75 09/12/24 20:38 Pulse Oximetry 100 09/12/24 20:38 Oxygen Delivery Room Air 09/12/24 20:38 Medical Decision Making MDM Narrative Medical decision making narrative: Differential diagnosis includes ACS, ST-elevation CA EKG showed acute inferior ST-elevation CA with reciprocal changes The case was discussed with interventional cardiology on-call the patient was given heparin and received aspirin emergency department the patient will be taken to the cardiac catheterization lab Vital Signs Vital Signs: Vital Signs Pulse Rate 81 09/12/24 20:38 Respiratory Rate 25 H 09/12/24 20:38 Blood Pressure 127/75 09/12/24 20:38 Pulse Oximetry 100 09/12/24 20:38 Oxygen Delivery Room Air 09/12/24 20:38 Pulse Rate 80 09/12/24 20:43 Respiratory Rate 25 H 09/12/24 20:38 Blood Pressure 127/75 09/12/24 20:38 Pulse Oximetry 100 09/12/24 20:38 Oxygen Delivery Room Air 09/12/24 20:38 Critical Care Time Critical Care Time Critical Care Time: Yes Total Critical Care Time: 35 Discharge Plan Discharge Clinical Impression: Acute ST elevation myocardial infarction Patient Disposition: Still a Patient Condition: Stable Patient Language: Romanian Prescriptions: No Action aspirin [Adult Low Dose Aspirin] 81 mg tablet,delayed release (DR/EC) 81 mg PO DAILY (DME) FreeStyle Viry 3 Sensor Device See Rx Instructions .Route Qty: 13 3RF Rx Instructions: As directed atorvastatin 40 mg tablet 40 mg PO DAILY Qty: 90 3RF omeprazole 20 mg capsule,delayed release(DR/EC) 20 mg PO DAILY Qty: 90 3RF Rx Instructions: Take 1 capsule by mouth once daily insulin degludec [Tresiba FlexTouch U-100] 100 unit/mL (3 mL) insulin pen 10 unit subcut DAILY Qty: 15 5RF nitroglycerin 0.4 mg tablet, sublingual 0.4 mg sublingual PRN (DME) FreeStyle Viry 2 [place] Misc See Rx Instructions .ROUTE .MEDSUPPLY Qty: 1 0RF Rx Instructions: As directed (DME) FreeStyle Viry 2 Sensor Kit See Rx Instructions .ROUTE .MEDSUPPLY Qty: 13 3RF Rx Instructions: As directed metformin 1,000 mg tablet extended release 24 hr 1,000 mg PO DAILY Qty: 90 1RF (DME) NovoFine Plus 32 gauge x 1/6 needle See Rx Instructions .Route Qty: 100 3RF Rx Instructions: As directed use with Tresiba pen levothyroxine 75 mcg tablet 75 mcg PO DAILY Qty: 90 1RF Follow-up/Referrals: Eric Riley MD [Primary Care Provider] - Time of Disposition: 20:46
[2024-09-12 20:47] VITALS: O2SAT 100
[2024-09-12] MEDS: HEPARIN SODIUM 5,000 UNITS/ML VIAL 4000 UNITS IV PUSH (20:51)
[2024-09-12] MEDS: MORPHINE SULFATE (*CRX) 4 MG/ML INJ IV PUSH (20:53)
[2024-09-12 20:58] LABS: Basophils Percent Auto 0.5 % (0.2-1.2); Eosinophils Absolute Auto 0.1 K/mm3 (0-0.3); Eosinophils Percent Auto 1.3 % (0-4.4); Hematocrit 40.1 % (42.0-52.0); Hemoglobin 13.2 g/dL (14.0-18.0); Immature Granulocyte Absolute 0.02 K/mm3 (0.00-0.031); Immature Granulocyte Percent A 0.2 % (0-0.5); Lymphocytes Absolute Auto 3.69 K/mm3 (0.9-3.2); Lymphocytes Percent Auto 43.5 % (18.3-44.2); Mean Corpuscular HGB Conc 32.9 g/dl (32-36); Mean Corpuscular Hemoglobin 29.7 pg (26-34); Mean Corpuscular Volume 90.1 fl (80-100); Mean Platelet Volume 10.4 fl (7.4-10.4); Monocytes Absolute Auto 0.7 K/mm3 (0.1-0.6); Monocytes Percent Auto 7.8 % (2.6-8.5); Neutrophils Percent Auto 46.7 % (45.5-73.1); Platelet Count Result 258 k/mm3 (150-375); Red Blood Count 4.45 M/mm3 (4.6-6.20); Red Cell Distribution Width 12.9 % (11.5-14.5); White Blood Count 8.5 K/mm3 (4.5-10.0)
[2024-09-12] MEDS: HEPARIN SOD/D5W 100 UNITS/ML 25,000 UNITS/250 ML BAG 6 UNITS IV CONT (21:02)
--- OUTSIDE RECORDS SUMMARY | 2024-09-12 21:02 | XMS_ITS | Clinical Summary ---
Author Organization [facility] Address [address] 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
--- OUTSIDE RECORDS SUMMARY | 2024-09-12 21:02 | XMS_ITS | Encounter Summary ---
Author Organization [facility] Address 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 History: [...] 18:36 Procedure Note Provider, Historical - 11/07/2007 [id number] [place], [place] [address] Admit Date: 11/07/2007 ERIC FREEMAN Sex: M Admit Prov: ER, AUTHORIZED P Date: 1960 Primary Care Prov: ERIC DAI CMRN: [id number] [facility] [id number] [facility] Ordering Prov: N/A Interpretation Exam: [...] PM CDT Narrative 11/07/2007 5:31 PM CDT [address] [address] Admit Date: 11/07/2007 ERIC FREEMAN Sex: M Admit Prov: ER, AUTHORIZED P Date: 1960 Primary Care Prov: MARCOSJUICENURYS ERIC Meza CMRN: [id number] Room: [facility] SSN: [id number] IMAGING SERVICES Ordering Prov: N/A Accession Number: [id number] Interpretation Exam: Cervical spine, 5 views. History: [...] 17:31 Procedure Note Provider, Historical - 11/07/[address] [address] Admit Date: 11/07/2007 ERIC FREEMAN Sex: M Admit Prov: ER, AUTHORIZED P Date: 1960 Primary Care Prov: MARCOSJUICEERIC NUNO CMRN: [id number] [facility]: [id number] IM[facility]ING SERVICES Ordering Prov: N/A Interpretation Exam: [...] and non- Americans is available on the [facility] Intranet at: [email or web address] Select: Lab Policies and Procedures Select: Reference Ranges - GFR Blood specimen (specimen) 11/07/2007 4:47 PM CDT 11/07/2007 5:04 PM CDT Guru Aragon Jr., MD CHEMISTRY ORDERABLES Edite d [facility] [address] [place] [address] * (ABNORMAL) C-REACTIVE PROTEIN (11/07/2007 4:47 PM CDT) [facility] CRP 6.3(H) 0.0 - 0.8 mg/dL [facility] Blood specimen (specimen) 11/07/2007 4:47 PM CDT 11/07/2007 5:04 PM CDT Guru Aragon Jr., MD CHEMISTRY ORDERABLES Final Result Performing Organization Address [facility] Co de Phone Number [facility] [address] [place], [place] [address] * CBC WITH DIFFERENTIAL (11/07/2007 4:47 PM CDT) [facility] RBC 4.99 4.50 - 5.40 M/uL [...] LAB NEUTROPHILS 63 45 - 70 % [facility] BASOPHILS 0 0 - 2 % [...] LAB LYMPHOCYTES 26 16 - 45 % [facility] NEUTROPHIL ABSOLUTE 4.13 1.90 - 7.00 K/uL [facility] EOSINOPHILS 2 0 - 7 % [facility] EOSINOPHIL ABSOLUTE 0.12 0.00 - 0.70 [...] [facility] [address] [place], [place] [address] documented in this encounter Visit Diagnoses Not on filedocumented in this encounter
--- OUTSIDE RECORDS SUMMARY | 2024-09-12 21:02 | XMS_ITS | Referral Summary ---
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
--- OUTSIDE RECORDS SUMMARY | 2024-09-12 21:02 | XMS_ITS | Continuity of Care Document ---
Author Organization [facility] Address [address] [place] [address] Phone Care Team Providers Care Sterile Supervisor Name Role Phone Adalid Moser DO Unavailable Unavailable Advance Directives Directive Yes / No Effective Date File Name No Information Encounters Encounter Description Practice Location Reason(s) For Visit Diagnoses Date Provider Providers Copied on Encounter [facility], [address], [place], [place], [id number], [place] tel:[phone] [facility] (formerly [facility]) No Information Ehsan Florez. [address] [place], [address], [place]. tel: [phone] Family History Family Member Type Diagnosis Age [...]
--- OUTSIDE RECORDS SUMMARY | 2024-09-12 21:02 | XMS_ITS | Encounter Summary ---
Author Organization [employer] Address 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
--- OUTSIDE RECORDS SUMMARY | 2024-09-12 21:02 | XMS_ITS | Encounter Summary ---
Author Organization [facility] Address 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 Gender Identity Not on file Sexual Orientation Not on file documented as of this encounter Plan of Treatment Not on file documented as of this encounter Procedures Procedure Name Priority Date/Time Associated Diagnosis Comments XR CERVICAL SPINE 1 VW Routine 09/16/2007 3:20 PM CLIMATE CHANGE RISK ASSESSOR documented in this encounter Results * XR CERVICAL SPINE 1 VW (09/16/2007 3:20 PM CLIMATE CHANGE RISK ASSESSOR) Anatomical Region Laterality Modality Spine Other 09/16/2007 3:20 PM CLIMATE CHANGE RISK ASSESSOR Narrative 09/17/2007 5:07 PM CLIMATE CHANGE RISK ASSESSOR [address] [address] Admit Date: 09/16/2007 ERIC FREEMAN Sex: M Admit Prov: NICK BLANK Date: 1960 Primary Care Prov: ERIC DAI CMRN: [id number] Room: [facility] SSN: [id number] IMAGING SERVICES Ordering Prov: N/A Accession Number: [id number] Interpretation CROSSTABLE LATERAL RADIOGRAPH, CERVICAL SPINE, 09/16/2007 [...] SJ Procedure Note Provider, Historical - 09[place] [facility] [place] [address] [place], [place] [address] Admit Date: 09/16/2007 QUANG ERIC Sex: M Admit Prov: NICK BLANK Date: 1960 Primary Care Prov: ERIC DAI CMRN: [id number] [id number] Ordering Prov: N/A Interpretation CROSSTABLE [...]
--- OUTSIDE RECORDS SUMMARY | 2024-09-12 21:02 | XMS_ITS | Encounter Summary ---
Author Organization [facility] Address [address] [place] [address] Care Team Providers Care Body And Fender Mechanic Name Role Phone Unavailable Primary Care Provider Unavailabl e Encounter Details Date Type Department Care Team (Late st Contact Info) Description 02/16/2006 Outpatient Historical [facility] ([facility]) [address] 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
--- OUTSIDE RECORDS SUMMARY | 2024-09-12 21:02 | XMS_ITS | Clinical Summary ---
Author Organization [facility] [address] Address [address] [place] [address] Care Team Providers Care Nuclear Plant Instrument Technician Name Role Phone Eric Riley MD Primary Care Provider [phone] Allergies Active Allergy Reactions Criticality Noted Date [...] Diagnosed Date Coronary artery disease invo lving [place] coronary artery of [place] heart without angina pectoris 10/29/2017 History of [...] Clotting disorder (CMS/HCC) (HCC) April Diabetes mellitus (HCC) Heart disease 10/12/17 Thyroid disease Family History [...] Name Status Comments Father Haider Freeman Mother eTri Freeman Other 1 Other 2 Social History Tobacco Use Types Packs/Day Years Used Date Smoking Tobacco: Never Smokeless Tobacco: Never Tobacco Cessation:Counseling Given: Not Answered Alcohol Use Standard Drinks/Week Comments No 0 (1 standard drink = 0.6 oz pur e alcohol) Sex and Gender Information Value Date Recorded Sex Assigned at Not on file Legal Sex Male 1:06 AM 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 MEDICARE [facility] Care Teams Nuclear Plant Instrument Technician Relationship Specialty Start Date End Date Eric Riley MD PCP - General 08/29/10
--- OUTSIDE RECORDS SUMMARY | 2024-09-12 21:02 | XMS_ITS | Encounter Summary ---
Author Organization [employer] [employer] Address 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
[2024-09-12 21:05] VITALS: BP 118/71; PULSE 68; RESP 20; O2SAT 100
[2024-09-12 21:10] LABS: INR 0.9; Prothrombin Time 12.6 Seconds (11.1-14.7)
[2024-09-12 21:11] LABS: Partial Thromboplastin Time 25.4 Seconds (22.3-36.8)
[2024-09-12 21:12] LABS: Albumin Level 4.5 g/dL (3.5-5.1); Alkaline Phosphatase 76 U/L (38-126); Anion Gap 20 mmol/L (4-12); Aspartate Amino Transferase 25 U/L (17-59); Bilirubin,Total 0.6 mg/dL (0.2-1.3); Blood Urea Nitrogen 18 mg/dL (9-20); Calcium 9.8 mg/dL (8.4-10.2); Carbon Dioxide 15 mmol/L (22-30); Chloride 103 mmol/L (98-107); Cholesterol 166 mg/dL (0-200); Estimated CRCL calculation 59 ml/min; Estimated Glomerular Filt Rate > 60; Glucose 177 mg/dL (65-110); HDL Direct 46 mg/dL; Potassium 3.7 mmol/L (3.4-5.0); Sodium 138 mmol/L (137-145); Triglycerides 213 mg/dL (<150)
[2024-09-12 21:16] LABS: Alanine Aminotransferase 35 U/L (6-50)
--- NOTE | 2024-09-12 21:16 | WPDMODSED ---
Moderate Sedation Note-Pt Data Patient Data Allergies Allergy/AdvReac Type Severity Reaction Status Date / Time quinine Allergy Intermediate Skin Verified 09/12/24 20:55 Reaction Quinolones Allergy Intermediate RASH Verified 09/12/24 20:55 simvastatin Allergy Intermediate myalgias Verified 09/12/24 20:55 Home Medications ?Medication ?Instructions ?Recorded ?Confirmed ?Type aspirin 81 mg tablet,delayed 81 mg PO DAILY 08/18/19 09/10/24 History release (Adult Low Dose Aspirin) nitroglycerin 0.4 mg sublingual 0.4 mg sublingual PRN 02/08/21 09/10/24 History tablet flash glucose scanning reader #1 ea 02/13/23 08/29/24 Rx (FreeStyle Viry 2 [place]) flash glucose sensor (FreeStyle #13 ea 03/11/23 08/29/24 Rx Viry 2 Sensor kit) blood-glucose sensor (FreeStyle #13 ea 03/12/23 08/29/24 Rx Viry 3 Sensor device) atorvastatin 40 mg tablet 40 mg PO DAILY #90 tabs 10/28/23 09/10/24 Rx omeprazole 20 mg capsule,delayed 20 mg PO DAILY #90 caps 10/28/23 09/10/24 Rx release metformin 1,000 mg tablet,extended 1,000 mg PO DAILY #90 tabs 04/04/24 09/10/24 Rx release 24hr (osmotic) insulin degludec 100 unit/mL (3 10 unit (0.1 mL) subcut DAILY #15 08/29/24 09/10/24 Rx mL) subcutaneous pen (Tresiba mL FlexTouch U-100 insulin) pen needle, diabetic 32 gauge x #100 ea 08/31/24 Rx 1/6 (NovoFine Plus) levothyroxine 75 mcg tablet 75 mcg PO DAILY #90 tabs 09/09/24 09/10/24 Rx Current Medications: Active Medications Heparin Sodium (Porcine) (Heparin Sodium 5,000 Units/Ml Vial) 4,000 units IV PUSH PRN PRN PRN Reason: aPTT less than 55 seconds Heparin Sodium (Porcine) (Heparin Sodium 5,000 Units/Ml Vial) 2,000 units IV PUSH PRN PRN PRN Reason: aPTT 55 - 70 seconds Heparin Sodium/Dextrose (Heparin Sodium/D5w 100 Units/Ml) 25,000 units in 250 mls @ 6 mls/hr IV CONT .Q24H MIGUEL; Protocol Last Admin: 09/12/24 21:02 Dose: 600 units/hr, 6 mls/hr Sedation/Anesthesia: No previous sedation/anesthesia problems (including family history). 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 Rectal Hemorrhage Metatarsalgia, right foot Osteonecrosis of both hips Arthritis of both hips Hypothyroid ASHD (arteriosclerotic heart disease) Acute thyroiditis Hyperlipidemia, unspecified Meniere's disease, unspecified Stricture and stenosis of esophagus Type 2 diabetes mellitus with hyperglycemia Surgical History Surgical History H/O cervical spine surgery S/P right inguinal hernia repair robotic assisted right inguinal hernia repair with mesh 08/14/22 History of coronary artery stent placement 1 stent 09/2017 Family History Family History Father Family history of lymphoma Family history of cardiovascular disease Parkinsons disease Mother Diabetes mellitus Hypertension Family history of elevated blood lipids Family history of cardiovascular disease Other Depression Family history of arthritis Family history of malignant neoplasm of bone Social History Social History Social History: Caffeine-coffee/tea Smoking status: Never smoker Alcohol intake: current Alcohol use details: VERY RARE Substance use: never Substance use type: does not use Lack of Transportation: No Lack of Food: Never True Current Housing: I Have Housing Concerned About Future Housing: No Difficulty Paying Gas/Electric Bills: No Difficulty Paying for Meds: No Currently Unemployed: No Education: Trade/Vocational Certificate Difficulty w/ Childcare or Family Care: No Living arrangements: with family Spiritual care concerns: No Mod Sed Physical Exam Physical Exam Pre Procedural Exam: Normal: Lungs, Heart Size, Heart Rate and Heart Rhythm Hours since solid foods: 3 Hours since liquid intake: 3 Mallampati Classification: class II Internal Medicine - PN: Obj Da Vital Signs Vital Signs: Vital Signs - 24 hr 09/12/24 20:38 09/12/24 20:43 09/12/24 20:44 Temperature 36.4 C Pulse Rate 81 80 Respiratory Rate 25 H Blood Pressure 127/75 Pulse Oximetry 100 100 Oxygen Delivery Room Air Nasal Cannula Oxygen Flow Rate 2 09/12/24 20:47 09/12/24 21:05 Temperature Pulse Rate 68 Respiratory Rate 20 Blood Pressure 118/71 Pulse Oximetry 100 100 Oxygen Delivery Nasal Cannula Oxygen Flow Rate 2 Meds/Results Medications: Active Medications Generic Name Dose Route Start Last Admin Trade Name Freq PRN Reason Stop Dose Admin Heparin Sodium (Porcine) 4,000 units 09/12/24 21:02 Heparin Sodium 5,000 Units/Ml Vial IV PUSH PRN PRN aPTT less than 55 seconds Heparin Sodium (Porcine) 2,000 units 09/12/24 21:02 Heparin Sodium 5,000 Units/Ml Vial IV PUSH PRN PRN aPTT 55 - 70 seconds Heparin Sodium/Dextrose 25,000 units in 250 mls @ 6 mls/hr 09/12/24 20:50 09/12/24 21:02 Heparin Sodium/D5w 100 Units/Ml IV CONT 600 units/hr .Q24H MIGUEL 6 mls/hr Administration Protocol 600 UNITS/HR Labs 09/12/24 20:44 09/12/24 20:44 Labs: Laboratory Results - last 24 hr 09/12/24 20:44 WBC 8.5 RBC 4.45 L Hgb 13.2 L Hct 40.1 L MCV 90.1 MCH 29.7 MCHC 32.9 RDW 12.9 Plt Count 258 MPV 10.4 Immature Gran % (Auto) 0.2 Neut % (Auto) 46.7 Lymph % (Auto) 43.5 Young % (Auto) 7.8 Eos % (Auto) 1.3 Baso % (Auto) 0.5 Lymph # (Auto) 3.69 H Young # (Auto) 0.7 H Eos # (Auto) 0.1 Baso # (Auto) 0.0 Abs Immat Gran (auto) 0.02 Absolute Neuts (auto) 4.0 Absolute Nucleated RBC 0.000 Nucleated RBC % 0.0 PT 12.6 INR 0.9 APTT 25.4 Sodium 138 Potassium 3.7 Chloride 103 Carbon Dioxide 15 L Anion Gap 20 H BUN 18 Creatinine 0.74 Estim Creat Clear Calc 59 Estimated GFR > 60 Glucose 177 H Calcium 9.8 Total Bilirubin 0.6 AST 25 ALT 35 Alkaline Phosphatase 76 Total Protein 8.0 Albumin 4.5 Triglycerides 213 H Cholesterol 166 HDL Direct 46 ASA Classification/Sedation ASA Classification/Sedation ASA Class: IV Emergent: Yes Risks: Risks, benefits and alternatives explained and patient/family accepted plan for sedation. Patient re-evaluated immediately prior to sedation.
--- NOTE | 2024-09-12 21:17 | P.HP_ITS ---
H&P: HPI History of Present Illness Date/Time: 09/12/24 21:17 Chief Complaint: Chest pain Narrative: 64 y/o male patient with h/o CAD s/p prior PCI and PTCA (unknown artery) in 2018, HTN, HLD, esophageal stricture, hypothyroidism, GERD, DM presents with CC of pressure like chest pain with onset around 7:30pm tonight while sitting in his couch. The chest pain is of intensity 10/10 with radiation to the left sh oulder and jaw. It is associated with diaphoresis. He had left sided shoulder pain with paresthesias and tingling 2 days back with radiation to the jaw for which he presented to Urgent care. He was given asa 325mg at the Urgent care and sent to the ER in his private vehicle as patient refused an ambulance. His symptoms had resolved by the time he arrived to the ER. EKG at that time was without any acute ST-T changes and patient was discharged home. He currently denies any SOB, palpitations, dizziness, LH, PND, orthopnea, pre syncope, syncope, nausea, emesis, abdominal pain. EKG today shows inferior ST elevations with reciprocal ST depressions consistent with inferior STEMI. He is accompanied by his and son. Review of Systems Review of Systems: A complete review of systems was not performed due to emergency need for LHC and coronary angiogram and possible PCI. 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 Rectal Hemorrhage Metatarsalgia, right foot Osteonecrosis of both hips Arthritis of both hips Hypothyroid ASHD (arteriosclerotic heart disease) Acute thyroiditis Hyperlipidemia, unspecified Meniere's disease, unspecified Stricture and stenosis of esophagus Type 2 diabetes mellitus with hyperglycemia Surgical History Surgical History H/O cervical spine surgery S/P right inguinal hernia repair robotic assisted right inguinal hernia repair with mesh 08/14/22 History of coronary artery stent placement 1 stent 09/2017 Family History Family History Father Family history of lymphoma Family history of cardiovascular disease Parkinsons disease Mother Diabetes mellitus Hypertension Family history of elevated blood lipids Family history of cardiovascular disease Other Depression Family history of arthritis Family history of malignant neoplasm of bone Social History Social History Social History: Caffeine-coffee/tea Smoking status: Never smoker Alcohol intake: current Alcohol use details: VERY RARE Substance use: never Substance use type: does not use Lack of Transportation: No Lack of Food: Never True Current Housing: I Have Housing Concerned About Future Housing: No Difficulty Paying Gas/Electric Bills: No Difficulty Paying for Meds: No Currently Unemployed: No Education: Trade/Vocational Certificate Difficulty w/ Childcare or Family Care: No Living arrangements: with family Spiritual care concerns: No Meds Home Medications and Allergies Home Medications ?Medication ?Instructions ?Recorded ?Confirmed ?Type aspirin 81 mg tablet,delayed 81 mg PO DAILY 08/18/19 09/10/24 History release (Adult Low Dose Aspirin) nitroglycerin 0.4 mg sublingual 0.4 mg sublingual PRN 02/08/21 09/10/24 History tablet flash glucose scanning reader #1 ea 02/13/23 08/29/24 Rx (FreeStyle Viry 2 [place]) flash glucose sensor (FreeStyle #13 ea 03/11/23 08/29/24 Rx Viry 2 Sensor kit) blood-glucose sensor (FreeStyle #13 ea 03/12/23 08/29/24 Rx Viry 3 Sensor device) atorvastatin 40 mg tablet 40 mg PO DAILY #90 tabs 10/28/23 09/10/24 Rx omeprazole 20 mg capsule,delayed 20 mg PO DAILY #90 caps 10/28/23 09/10/24 Rx release metformin 1,000 mg tablet,extended 1,000 mg PO DAILY #90 tabs 04/04/24 09/10/24 Rx release 24hr (osmotic) insulin degludec 100 unit/mL (3 10 unit (0.1 mL) subcut DAILY #15 08/29/24 09/10/24 Rx mL) subcutaneous pen (Tresiba mL FlexTouch U-100 insulin) pen needle, diabetic 32 gauge x #100 ea 08/31/24 Rx 1/6 (NovoFine Plus) levothyroxine 75 mcg tablet 75 mcg PO DAILY #90 tabs 09/09/24 09/10/24 Rx Allergies Allergy/AdvReac Type Severity Reaction Status Date / Time quinine Allergy Intermediate Skin Verified 09/12/24 20:55 Reaction Quinolones Allergy Intermediate RASH Verified 09/12/24 20:55 simvastatin Allergy Intermediate myalgias Verified 09/12/24 20:55 Vital Signs Vital Signs - 24 hr 09/12/24 20:38 09/12/24 20:43 09/12/24 20:44 Temperature 36.4 C Pulse Rate 81 80 Respiratory Rate 25 H Blood Pressure 127/75 Pulse Oximetry 100 100 Oxygen Delivery Room Air Nasal Cannula Oxygen Flow Rate 2 09/12/24 20:47 09/12/24 21:05 Temperature Pulse Rate 68 Respiratory Rate 20 Blood Pressure 118/71 Pulse Oximetry 100 100 Oxygen Delivery Nasal Cannula Oxygen Flow Rate 2 Exam Narrative: General: Alert oriented x3, no acute distress Neck: Supple, no JVD Chest: Bilaterally clear to auscultation, no rales or rhonchi Cardiac: S1, S2 +, regular rate, regular rhythm, no murmurs or rubs Extremities: No edema, no skin rash Neurologic: Alert and oriented x3, no focal neurological deficits H&P: Results Labs Labs: Short CBC 09/12/24 Range/Units 20:44 WBC 8.5 (4.5-10.0) K/mm3 Hgb 13.2 L (14.0-18.0) g/dL Hct 40.1 L (42.0-52.0) % Plt Count 258 (150-375) k/mm3 BMP 09/12/24 20:44 Sodium 138 Potassium 3.7 Chloride 103 Carbon Dioxide 15 L BUN 18 Creatinine 0.74 Glucose 177 H Calcium 9.8 Liver Function 09/12/24 Range/Units 20:44 Total Bilirubin 0.6 (0.2-1.3) mg/dL AST 25 (17-59) U/L ALT 35 (6-50) U/L Alkaline Phosphatase 76 (38-126) U/L Albumin 4.5 (3.5-5.1) g/dL ECG Interpretation: Sinus rhythm, ST-elevation in inferior leads with reciprocal ST depressions consistent with inferior STEMI Assessment and Plan Assessment and plan (1) Acute ST elevation myocardial infarction: Code(s): I21.3 - ST elevation (STEMI) myocardial infarction of unspecified site Status: Acute (2) Hyperlipidemia, unspecified: Code(s): E78.5 - Hyperlipidemia, unspecified Status: Acute (3) CAD (coronary artery disease): Code(s): I25.10 - Atherosclerotic heart disease of [place] coronary artery without angina pectoris Status: Acute (4) Type 2 diabetes mellitus with hyperglycemia: Code(s): E11.65 - Type 2 diabetes mellitus with hyperglycemia Status: Acute Plan Inferior STEMI Poorly controlled diabetes mellitus with hemoglobin A1c of 8 CAD status post PCI and PTCA in the past Hypertension Hyperlipidemia Plan: -emergent cardiac catheterization -aspirin 325 mg once given in the ER. Continue 81 mg daily starting tomorrow -heparin drip -continue atorvastatin 40 mg daily -TTE -check and replace electrolytes as needed keeping potassium greater than 4 and magnesium greater than 2 -will load Brilinta 180 mg in the phlebotomist lab assistant. Continue 90 mg b.i.d. starting tomorrow a.m. -hold beta-rajani due to soft blood pressure -administered IV fluids normal saline 1000 mL at 150 mL/hour -patient will be admitted to ICU post catheterization -DVT prophylaxis per protocol
[2024-09-12 21:19] LABS: LDL Cholesterol Direct 81 mg/dL
[2024-09-12 21:26] LABS: Troponin I 0.058 ng/mL (0.000-0.034)
[2024-09-12 21:29] LABS: Glucose Point of Care 164 mg/dl (65-105)
[2024-09-12 22:23] LABS: Activated Clotting Time 176 SEC (74-137)
[2024-09-12 22:23] LABS: Activated Clotting Time 227 SEC (74-137)
[2024-09-12 22:23] LABS: Activated Clotting Time 228 SEC (74-137)
--- NOTE | 2024-09-12 22:37 | PC.NURSE ---
Paged out St[facility], and put Rodriguez on standby.
[2024-09-12 22:41] LABS: Activated Clotting Time 245 SEC (74-137)
--- NOTE | 2024-09-12 22:46 | P.PCNCC_ITS ---
Cardiac Cath Procedure Note Date of procedure:: 09/12/24 Performing physician:: Aide Lopez MD Indication:: Inferior STEMI Brief clinical history:: 64-year-old male with history of CAD status post PCI and PTCA in the past, hypertension, hyperlipidemia, poorly-controlled diabetes mellitus presented with pressure-like left-sided chest pain that started at 7:30 p.m. tonight with radiation to left shoulder, left arm, and jaw, of intensity 10/10, and associated with diaphoresis. In the ER, EKG showed inferior ST elevations with reciprocal ST depressions consistent with inferior STEMI. Patient was taken to the cardiac laborer [facility] emergently for diagnostic right and left coronary angiogram, left heart catheterization and possible PCI. Procedure Procedure performed:: Right radial access Selective right and left coronary angiogram PCI to mid RCA Sedation/Medication given:: Moderate sedation: Fentanyl 100 mcg Versed 1 mg Case start time 9:30 p.m. Case end time 10:22 p.m. Total sedation time: 52 minutes Access site:: Right radial artery Closure: TR band Estimated blood loss:: 50 mL Procedure note:: Equipment: Right radial artery 6 Spanish sheath 6 Fr JL 3.5 diagnostic catheter 6 Fr JR4 for guide catheter Runthrough coronary guidewire Sterling IVUS Anticoagulation: Heparin 7000 units for therapeutic ACT more than 250. Opening aortic pressure: 79/49/60 2 mm Hg Procedure details: The patient was brought to the cardiac catheterization lab for emergency cardiac catheterization for inferior STEMI. The patient was prepped and draped in the usual sterile fashion. The skin of the right wrist was infiltrated with 1% lidocaine for local anesthesia. Arterial access was obtained using modified Seldinger technique. A 6 Spanish sheath was inserted into the right radial artery. Selective left and right coronary angiogram was performed thereafter in a standard fashion using 6 Fr JL 3.5 diagnostic catheter and 6 Fr JR4 guide catheter respectively. Left main: Angiographically free of significant disease LAD: The LAD takes off from the left main and gives off two large and two small diagonals. There is 50% stenosis in the mid LAD after the takeoff of the large 1st diagonal. There is 60% stenosis in the proximal 1st diagonal. LCX: The LCX takes off from the left main and gives off two large OM branches. There is 60% stenosis in the proximal LCX. RCA: Right dominant system. The RCA is widely patent with patent prior stent in mid RCA. There is 99% thrombotic stenosis in the mid RCA just proximal to the prior stent with HILARIO 3 flow in the distal vessel. The RCA bifurcates into the PDA and PL branches. LVEDP: Not performed. Based on the diagnostic angiogram findings decision was made to proceed with PCI to the mid RCA. The RCA was engaged with the 6 Fr JR 4 guide catheter. A coronary run-through guidewire was advanced to the distal RCA. The lesion in the mid RCA was pre- dilated with a 2.0x15 mm compliant balloon at nominal pressures. IVUS was performed to better characterize the lesion, to size the vessel for optimal stent sizing, and to identify optimal proximal and distal stent landing zones. This demonstrated severe atherosclerotic calcific plaque burden in the lesion. The lesion in the mid RCA was then pre-dilated with 3.0 x 15 mm noncompliant balloon at nominal pressures. The mid RCA was stented with 3.0x26 mm resolute aurora Castro AWILDA at nominal pressures and post dilation was performed with the same stent balloon at high pressures. IVUS post PCI demonstrated excellent stent expansion and apposition. Completion angiogram revealed no evidence of dissection or perforation. There was HILARIO 3 flow and 0% residual stenosis. The patient tolerated the procedure well and there were no immediate complications. Closing aortic pressure: 69/38/50 1 mm Hg Hemostasis: TR band Additional postprocedure medications: Ticagrelor 180 mg 1 time Findings:: Left main: Angiographically free of significant disease LAD: The LAD takes off from the left main and gives off two large and two small diagonals. There is 50% stenosis in the mid LAD after the takeoff of the large 1st diagonal. There is 60% stenosis in the proximal 1st diagonal. LCX: The LCX takes off from the left main and gives off two large OM branches. There is 60% stenosis in the proximal LCX. RCA: Right dominant system. The RCA is widely patent with patent prior stent in mid RCA. There is 99% thrombotic stenosis in the mid RCA just proximal to the prior stent with HILARIO 3 flow in the distal vessel. The RCA bifurcates into the PDA and PL branches. Status post successful IVUS guided PCI to mid RCA 99% thrombotic stenosis with 3.0 in 226 mm aurora Castro Medtronic stent LVEDP: Not performed. Based on the diagnostic angiogram findings decision was made to proceed with PCI to the mid RCA. Conclusion:: Inferior STEMI status post successful IVUS guided PCI to mid RCA 99% thrombotic stenosis with 3.0 in 226 mm aurora Castro Medtronic stent Nonobstructive CAD in mid LAD and proximal LCX Assessment and Plan Assessment and plan (1) Acute ST elevation myocardial infarction: Code(s): I21.3 - ST elevation (STEMI) myocardial infarction of unspecified site Status: Acute (2) Type 2 diabetes mellitus with hyperglycemia: Code(s): E11.65 - Type 2 diabetes mellitus with hyperglycemia Status: Acute (3) Hyperlipidemia, unspecified: Code(s): E78.5 - Hyperlipidemia, unspecified Status: Acute (4) CAD (coronary artery disease): Code(s): I25.10 - Atherosclerotic heart disease of [place] coronary artery without angina pectoris Status: Acute Plan Assessment: -Inferior STEMI status post successful IVUS guided PCI to mid RCA 99% thrombotic stenosis with 3.0 in 226 mm aurora Castro Medtronic stent -Nonobstructive CAD in the proximal to mid LAD and proximal left circumflex -Poorly controlled diabetes mellitus with hemoglobin A1c of 8 -CAD status post PCI and PTCA in the past -Hyperlipidemia Plan: -DAPT for minimum 1 year -aspirin 325 mg once given in the ER. Continue 81 mg daily starting tomorrow indefinitely -heparin drip -continue atorvastatin 40 mg daily -TTE in a.m. -check and replace electrolytes as needed keeping potassium greater than 4 and magnesium greater than 2 -loaded Brilinta 180 mg in the laborer shellfish processing. Continue 90 mg b.i.d. starting tomorrow a.m. for 1 year -hold beta-rajani due to soft blood pressure. Avoid blood pressure lowering meds -administered IV fluids normal saline 1000 mL at 150 mL/hour -needs good control of risk factors including diabetes, lipids -cardiac rehab at 1 month -patient will be admitted to ICU -DVT prophylaxis per protocol -family (patient's , sons, [id number]) updated
--- NOTE | 2024-09-12 23:05 | ECG_ITS ---
Test Date: 2024-09-12 23:10:59 Measurements Intervals [place] Rate: 64 P: 35 NE: 201 QRS: 53 QRSD: 87 T: 8 QT: 401 QTc: 416 Interpretive Statements SINUS RHYTHM INCOMPLETE RIGHT BUNDLE BRANCH BLOCK LOW QRS VOLTAGE IN PRECORDIAL LEADS INFERIOR INFARCT, PROBABLY RECENT BASELINE ARTIFACT- I, II, III, AVR, AVL, AVF ABNORMAL ECG Compared to ECG 09/12/2024 20:39:01 STEMI NO LONGER PRESENT Electronically Signed On 09-13-2024 06:55:26 X RAY DEVELOPER by Kenneth Townsend D.O.
[2024-09-12 23:06] VITALS: BMI 23.2
--- NOTE | 2024-09-12 23:06 | ADMGEN ---
2300: This patient, Eric Freeman, was admitted to Intensive Care Unit-7. Patient/family oriented to hospital policies and general routines including ID bracelet, bed and alarms, visiting hours, pain management, procedures, bathroom and other care routines, personal items, smoking policy, room service/diet, and visiting hours. Information on how to activate the Rapid Response Team has been discussed. Patient/Family are encouraged to report perceived risks to care and to ask questions if they do not understand what they are told or what they should do.
[2024-09-12 23:15] VITALS: BP 91/59; PULSE 75; RESP 16; O2SAT 99
[2024-09-12 23:51] LABS: Glucose Point of Care 105 mg/dl (65-105)
[2024-09-13] VITALS (27 sets, daily range): BP systolic 97–125; BP diastolic 50–73; PULSE 60–85; RESP 11–20; TEMP 36.6–36.8; O2SAT 96–99
--- NOTE | 2024-09-13 | ECHO_ITS ---
Patient Info Name: Eric Freeman Age: 64 years : 1960 Gender: Male Ht: 70 in Wt: 161 lbs BSA: 1.90 m2 HR: 69 bpm BP: 110 / 66 mmHg Heart Rhythm: Sinus Rhythm Technical Quality: Fair Exam Date: 09/13/2024 12:18 PM Exam Location: Echo Lab Patient Status: Inpatient Admit Date: 09/12/2024 Staff Ordering Physician: Arabella Rice Student Development Dean: Carola Lozano RDCS Attending Provider: Aide Lopez MD (jena/rosa isela) Referring Physician: Krystal SIMS; Exam Type: CA echo doppler color flow Study Info Indications - STEMI Complete two-dimensional, color flow and Doppler transthoracic echocardiogram is performed. Summary 1. Complete two-dimensional, color flow and Doppler transthoracic echocardiogram is performed. 2. Normal left ventricular size and normal global systolic contractility. 3. Akinesis of the base to midportion of the inferior segment. 4. Trivial MR. Left Ventricle Left ventricular chamber dimension is normal. Left ventricular systolic function is normal, estimated at 55-60%. The left ventricular diastolic function is grade I diastolic dysfunction. Right Ventricle Right ventricular chamber dimension is normal. Left Atria Left atrial chamber dimension is normal. Right Atria Right atrial chamber dimension is normal. Aortic Valve The aortic valve is normal. Pulmonic Valve The pulmonic valve is normal. Mitral Valve The mitral valve has normal leaflets. There is trace mitral valve regurgitation. Tricuspid Valve The tricuspid valve leaflets are normal. Pericardium/Pleural The pericardium appears normal. Aorta The aortic root size at the sinus of Valsalva is normal. Left Ventricular Outflow Tract Name Value Normal LVOT 2D LVOT Diameter 2.1 cm LVOT Doppler LVOT Peak Velocity 93 cm/s LVOT Peak Gradient 3 mmHg LVOT Mean Gradient 2 mmHg LVOT VTI 22 cm LVOT VTI/AV VTI Ratio 0.7 LVOT Stroke Volume 80 ml LVOT CO 5.2 l/min LVOT CI 2.7 l/min/m2 Pulmonic Valve Name Value Normal RVOT Doppler RVOT Peak Gradient 2 mmHg PV Doppler PV Peak Velocity 90 cm/s PV Peak Gradient 3 mmHg Mitral Valve Name Value Normal MV Doppler MV Decel Morton 1,009 cm/s2 MV PHT 23 ms MV Area (PHT) 9.7 cm2 4.0-5.0 MV Diastolic Function MV E Peak Velocity 79 cm/s MV A Peak Velocity 70 cm/s MV E/A 1.1 MV Decel Time 78 ms MV Annular TDI MV Septal e' Velocity 8.3 cm/s >=8.0 MV E/e' (Septal) 9.4 <=8.0 MV Lateral e' Velocity 13.4 cm/s >=10.0 MV E/e' (Lateral) 5.9 <=8.0 MV e' Average 10.89 MV E/e' (Average) 7.6 Tricuspid Valve Name Value Normal Estimated PAP/RSVP RA Pressure 10 mmHg <=5 TV Annular TDI TV Lateral Aurelia s' Velocity 10.8 cm/s 9.5-18.7 Aorta Name Value Normal Ascending Aorta Ao Root Diameter (MM) 3.5 cm Ao Root Diam Index (MM) 1.8 cm/m2 Ao Sinotub [place]unction Diameter 2.5 cm 2.6-3.2 Aortic Valve Name Value Normal AV Doppler AV Peak Velocity 135 cm/s AV Peak Gradient 7 mmHg AV Mean Gradient 4 mmHg AV VTI 31 cm AV Area (Cont Eq VTI) 2.6 cm2 >=3.0 AV Area (Cont Eq Yair) 2.5 cm2 AV V1/V2 Ratio 0.69 AV Regurgitation 2D LVOT Area 3.6 cm2 Ventricles Name Value Normal LV Dimensions 2D/MM IVS Diastolic Thickness (2D) 1.2 cm 0.6-1.0 LVID Diastole (2D) 4.5 cm 4.2-5.8 LVIW Diastolic Thickness (2D) 1.1 cm 0.6-1.0 LVID Systole (2D) 2.9 cm 2.5-4.0 LVOT Diameter 2.1 cm LV Mass (2D Cubed) 180.91 g 88.00-224.00 LV Mass Index (2D Cubed) 95 g/m2 49-115 Relative Wall Thickness (2D) 0.49 LV Fractional Shortening/Ejection Fraction 2D/MM LV Fractional Shortening (2D) 34 % 25-43 LV EF (2D Teicholz) 64 % 52-72 LV Diastolic Volume (4C MOD) 92 ml LV EF (4C MOD) 48 % LV Diastolic Volume (2C MOD) 79 ml LV EF (2C MOD) 55 % LV Diastolic Volume (BP MOD) 89 ml 62-150 LV Diastolic Volume Index (BP MOD) 47 ml/m2 34-74 LV Systolic Volume (BP MOD) 44 ml 21-61 LV Systolic Volume Index (BP MOD) 23 ml/m2 11-31 LV EF (BP MOD) 50 % 52-72 LV Diastolic Length (4C) 8.7 cm LV Systolic Length (4C) 7.4 cm LV Stroke Volume (4C MOD) 44 ml Atria Name Value Normal LA Dimensions LA Dimension (MM) 3.5 cm 3.0-4.1 LA Volume (4C A-L) 51 ml LA Volume (BP A-L) 52 ml RA Dimensions RA Area (4C) 21.9 cm2 <=18.0 Report Signatures
[2024-09-13 01:49] LABS: MRSA (PCR) NOT DETECTED (NOT DETECTE)
--- NOTE | 2024-09-13 08:00 | P.PNCA_ITS ---
Progress Note: A&P Assessment and Plan (1) Acute ST elevation myocardial infarction: Code(s): I21.3 - ST elevation (STEMI) myocardial infarction of unspecified site Status: Acute (2) CAD (coronary artery disease): Code(s): I25.10 - Atherosclerotic heart disease of [place] coronary artery without angina pectoris Status: Acute (3) Type 2 diabetes mellitus with hyperglycemia: Code(s): E11.65 - Type 2 diabetes mellitus with hyperglycemia Status: Acute (4) Hypothyroid: Code(s): E03.9 - Hypothyroidism, unspecified Status: Acute (5) Hyperlipidemia, unspecified: Code(s): E78.5 - Hyperlipidemia, unspecified Status: Acute Plan Inferior STEMI status post successful I was guided PCI of mid RCA 99% thrombotic stenosis (just proximal to prior RCA stent) with 3.0x26 mm Hernan Gunnison Medtronic AWILDA CAD status post PCI and PTCA in the past-prior stent in mid RCA widely patent Hypotension-resolved with IV fluids Hyperlipidemia Diabetes mellitus-poorly controlled with hemoglobin A1c of 8; on insulin Hypothyroidism Plan: -continue aspirin 81 mg daily indefinitely -continue atorvastatin 40 mg daily -TTE today -continue Brilinta 90 mg b.i.d. for 1 year -start metoprolol 12.5 mg b.i.d. -stop IV fluids -check and replace electrolytes as needed keeping potassium greater than 4 and magnesium greater than 2 -hospitalist consult for management of medical problems -DVT prophylaxis per protocol -okay to transfer to IMU -cardiac rehab in 1 month -heart healthy and diabetic diet -continue telemetry -continue levothyroxine -continue insulin for diabetes management -dietary consult to discuss heart healthy and diabetic diet Discharge disposition: Discharged home in a.m. tomorrow Subjective Date/time seen: 09/13/24 08:00 Interval history: Reason for encounter: Inferior STEMI status post PCI to mid RCA Relevant history:64 y/o male patient with h/o CAD s/p prior PCI and PTCA (unknown vessel) in 2018, HLD, esophageal stricture, hypothyroidism, GERD, DM presented with sudden onset left-sided chest pain. EKG showed ST elevation in inferior leads and reciprocal depressions consistent with inferior STEMI. He underwent emergent cardiac catheterization status post successful IVUS guided PCI to mid RCA 99% thrombotic stenosis with 3.0X26mm [place] Gunnison Medtronic AWILDA. He tolerated the procedure well without any complications. He is currently on BiPAP with aspirin and Brilinta. He is on a statin. His systolic blood pressures was in the 90s yesterday and he received 2 L of normal saline. Interval history: Patient denies any chest pain, shortness of breath, lightheadedness, palpitations, nausea, emesis, bleeding. Blood pressure has improved after IV fluids with SBP in the 100s. Review of Systems Review of Systems: A complete review of systems was performed and pertinent positives are noted in the HPI Exam Narrative: General: Alert oriented x3, no acute distress Neck: Supple, no JVD Chest: Bilaterally clear to auscultation, no rales or rhonchi Cardiac: S1, S2 +, regular rate, regular rhythm, no murmurs or rubs Extremities: No pedal edema, no skin rash Neurologic: Alert and oriented x3, no focal neurological deficits Objective Data Vital Signs Vital Signs: Vital Signs - 24 hr 09/12/24 20:38 09/12/24 20:43 09/12/24 20:44 Temperature 36.4 C Pulse Rate 81 80 Pulse Rate [Bilateral Radial Palpation] Respiratory Rate 25 H Blood Pressure 127/75 Pulse Oximetry 100 100 Oxygen Delivery Room Air Nasal Cannula Oxygen Flow Rate 2 09/12/24 20:47 09/12/24 21:05 09/12/24 23:00 Temperature Pulse Rate 68 Pulse Rate [Bilateral Radial Palpation] Respiratory Rate 20 Blood Pressure 118/71 Pulse Oximetry 100 100 Oxygen Delivery Nasal Cannula Room Air Oxygen Flow Rate 2 09/12/24 23:15 09/12/24 23:15 09/12/24 23:15 Temperature Pulse Rate 75 75 Pulse Rate [Bilateral Radial Palpation] 75 Respiratory Rate 16 Blood Pressure 91/59 L Pulse Oximetry 99 Oxygen Delivery Oxygen Flow Rate 09/13/24 00:00 09/13/24 00:00 09/13/24 01:30 Temperature 36.6 C Pulse Rate 65 65 63 Pulse Rate [Bilateral Radial Palpation] 63 Respiratory Rate 15 13 Blood Pressure 97/55 L 101/66 Pulse Oximetry 99 99 Oxygen Delivery Oxygen Flow Rate 09/13/24 02:00 09/13/24 02:15 09/13/24 02:30 Temperature Pulse Rate 62 62 62 Pulse Rate [Bilateral Radial Palpation] 62 Respiratory Rate 14 14 Blood Pressure 105/64 Pulse Oximetry 97 97 Oxygen Delivery Oxygen Flow Rate 09/13/24 02:30 09/13/24 03:30 09/13/24 04:00 Temperature Pulse Rate 67 62 Pulse Rate [Bilateral Radial Palpation] 62 67 62 Respiratory Rate 15 16 Blood Pressure 103/62 107/63 Pulse Oximetry 97 97 Oxygen Delivery Oxygen Flow Rate 09/13/24 04:00 09/13/24 04:00 09/13/24 04:00 Temperature 36.7 C Pulse Rate 64 64 Pulse Rate [Bilateral Radial Palpation] Respiratory Rate 18 Blood Pressure 107/63 Pulse Oximetry 99 Oxygen Delivery Room Air Oxygen Flow Rate 09/13/24 05:15 09/13/24 05:30 09/13/24 06:00 Temperature Pulse Rate 64 64 60 Pulse Rate [Bilateral Radial Palpation] 64 64 Respiratory Rate 13 14 Blood Pressure 108/67 113/73 Pulse Oximetry 99 97 Oxygen Delivery Oxygen Flow Rate 09/13/24 06:00 09/13/24 06:00 09/13/24 06:15 Temperature Pulse Rate 60 60 63 Pulse Rate [Bilateral Radial Palpation] 60 63 Respiratory Rate 15 15 15 Blood Pressure 114/66 114/66 121/60 Pulse Oximetry 98 98 96 Oxygen Delivery Oxygen Flow Rate 09/13/24 06:30 09/13/24 06:45 Temperature Pulse Rate 60 63 Pulse Rate [Bilateral Radial Palpation] 60 63 Respiratory Rate 11 L 14 Blood Pressure 108/68 108/68 Pulse Oximetry 97 96 Oxygen Delivery Oxygen Flow Rate Intake/Output Intake/Output: Intake & Output 09/10/24 09/11/24 09/12/24 09/13/24 23:59 23:59 23:59 23:59 Intake Total 100 Output Total 460 Balance -360 Meds/Results Medications: Active Medications Generic Name Dose Route Start Last Admin Trade Name Freq PRN Reason Stop Dose Admin Acetaminophen 650 mg 09/13/24 00:28 Acetaminophen 325 Mg Tablet PO Q6H PRN Mild Pain (1-3) or Fever Dextrose 12.5 gm 09/13/24 00:28 Dextrose 50% 25 Gm/50 Ml Syringe IV PUSH PRN PRN Hypoglycemia Protocol Glucagon 1 mg 09/13/24 00:28 Glucagon For Inj 1 Mg Vial IM PRN PRN Hypoglycemia Protocol Glucose 15 gm 09/13/24 00:28 Glucose Oral Gel 15 Gm Of Glucse In 37.5 Gm Tube PO PRN PRN Hypoglycemia Protocol Dextrose 1,000 mls @ 100 mls/hr 09/13/24 00:28 Dextrose 5% 1,000 Ml IVPB PRN PRN Hypoglycemia Protocol Insulin Aspart 2 - 5 units 09/13/24 08:00 Insulin Aspart (*Bkc) 100 Units/Ml SUB-Q TIDWM MIGUEL Protocol Insulin Aspart 1 - 2 units 09/13/24 21:00 Insulin Aspart (*Bkc) 100 Units/Ml SUB-Q HS [facility] Protocol Ticagrelor 90 mg 09/13/24 09:00 Ticagrelor 90 Mg Tablet PO Q12HR [facility] Radiology Results: ITS Impressions Chest X-Ray 09/12/24 21:18 IMPRESSION: No acute cardiopulmonary process. Labs Labs: Laboratory Results - last 24 hr 09/12/24 09/12/24 09/12/24 20:44 21:08 21:52 WBC 8.5 RBC 4.45 L Hgb 13.2 L Hct 40.1 L MCV 90.1 MCH 29.7 MCHC 32.9 RDW 12.9 Plt Count 258 MPV 10.4 Immature Gran % (Auto) 0.2 Neut % (Auto) 46.7 Lymph % (Auto) 43.5 [place] % (Auto) 7.8 Eos % (Auto) 1.3 Baso % (Auto) 0.5 Lymph # (Auto) 3.69 H [place] # (Auto) 0.7 H Eos # (Auto) 0.1 Baso # (Auto) 0.0 Abs Immat Gran (auto) 0.02 Absolute Neuts (auto) 4.0 Absolute Nucleated RBC 0.000 Nucleated RBC % 0.0 PT 12.6 INR 0.9 APTT 25.4 Activ Coag Time Kaolin 176 H Sodium 138 Potassium 3.7 Chloride 103 Carbon Dioxide 15 L Anion Gap 20 H BUN 18 Creatinine 0.74 Estim Creat Clear Calc 59 Estimated GFR > 60 Glucose 177 H POC Capillary Glucose 164 H Calcium 9.8 Total Bilirubin 0.6 AST 25 ALT 35 Alkaline Phosphatase 76 Troponin I 0.058 H* Total Protein 8.0 Albumin 4.5 Triglycerides 213 H Cholesterol 166 LDL Cholesterol Direct 81 HDL Direct 46 Nasal MRSA (PCR) Blood Type AB Positive Antibody Screen Negative 09/12/24 09/12/24 09/12/24 22:04 22:18 22:34 WBC RBC Hgb Hct MCV MCH MCHC RDW Plt Count MPV Immature Gran % (Auto) Neut % (Auto) Lymph % (Auto) [place] % (Auto) Eos % (Auto) Baso % (Auto) Lymph # (Auto) [place] # (Auto) Eos # (Auto) Baso # (Auto) Abs Immat Gran (auto) Absolute Neuts (auto) Absolute Nucleated RBC Nucleated RBC % PT INR APTT Activ Coag Time Kaolin 228 H 227 H 245 H Sodium Potassium Chloride Carbon Dioxide Anion Gap BUN Creatinine Estim Creat Clear Calc Estimated GFR Glucose POC Capillary Glucose Calcium Total Bilirubin AST ALT Alkaline Phosphatase Troponin I Total Protein Albumin Triglycerides Cholesterol LDL Cholesterol Direct HDL Direct Nasal MRSA (PCR) Blood Type Antibody Screen 09/12/24 09/13/24 23:24 00:20 WBC RBC Hgb Hct MCV MCH MCHC RDW Plt Count MPV Immature Gran % (Auto) Neut % (Auto) Lymph % (Auto) [place] % (Auto) Eos % (Auto) Baso % (Auto) Lymph # (Auto) [place] # (Auto) Eos # (Auto) Baso # (Auto) Abs Immat Gran (auto) Absolute Neuts (auto) Absolute Nucleated RBC Nucleated RBC % PT INR APTT Activ Coag Time Kaolin Sodium Potassium Chloride Carbon Dioxide Anion Gap BUN Creatinine Estim Creat Clear Calc Estimated GFR Glucose POC Capillary Glucose 105 Calcium Total Bilirubin AST ALT Alkaline Phosphatase Troponin I Total Protein Albumin Triglycerides Cholesterol LDL Cholesterol Direct HDL Direct Nasal MRSA (PCR) Not detected Blood Type Antibody Screen
[2024-09-13 08:16] LABS: Basophils Percent Auto 0.4 % (0.2-1.2); Eosinophils Absolute Auto 0.1 K/mm3 (0-0.3); Eosinophils Percent Auto 1.7 % (0-4.4); Hematocrit 37.3 % (42.0-52.0); Hemoglobin 12.1 g/dL (14.0-18.0); Immature Granulocyte Absolute 0.01 K/mm3 (0.00-0.031); Immature Granulocyte Percent A 0.2 % (0-0.5); Lymphocytes Absolute Auto 1.82 K/mm3 (0.9-3.2); Lymphocytes Percent Auto 34.7 % (18.3-44.2); Mean Corpuscular HGB Conc 32.4 g/dl (32-36); Mean Corpuscular Volume 92.6 fl (80-100); Mean Platelet Volume 10.1 fl (7.4-10.4); Monocytes Absolute Auto 0.4 K/mm3 (0.1-0.6); Monocytes Percent Auto 7.8 % (2.6-8.5); Neutrophils Absolute Auto 2.9 K/mm3 (1.3-6.7); Neutrophils Percent Auto 55.2 % (45.5-73.1); Platelet Count Result 199 k/mm3 (150-375); Red Blood Count 4.03 M/mm3 (4.6-6.20); White Blood Count 5.3 K/mm3 (4.5-10.0)
[2024-09-13 08:27] LABS: Glucose Point of Care 108 mg/dl (65-105)
[2024-09-13 08:27] LABS: Anion Gap 8 mmol/L (4-12); Blood Urea Nitrogen 15 mg/dL (9-20); Calcium 9.2 mg/dL (8.4-10.2); Carbon Dioxide 26 mmol/L (22-30); Chloride 105 mmol/L (98-107); Estimated CRCL calculation 100 ml/min; Estimated Glomerular Filt Rate > 60; Glucose 99 mg/dL (65-110); Magnesium 1.7 mg/dL (1.6-2.3); Phosphorus 3.6 mg/dL (2.5-4.5); Potassium 4.1 mmol/L (3.4-5.0); Sodium 139 mmol/L (137-145)
[2024-09-13] MEDS: ASPIRIN 81 MG ENTERIC TABLET PO (09:21)
[2024-09-13] MEDS: ATORVASTATIN 40 MG TABLET PO (09:21)
[2024-09-13] MEDS: METOPROLOL TARTRATE 12.5 MG TABLET PO ×2 (09:21→20:53)
[2024-09-13] MEDS: TICAGRELOR 90 MG TABLET PO ×2 (09:21→20:53)
--- NOTE | 2024-09-13 11:22 | WPDCNINT ---
Assessment and Plan Assessment and plan (1) Acute ST elevation myocardial infarction: Code(s): I21.3 - ST elevation (STEMI) myocardial infarction of unspecified site Status: Acute Assessment and Plan: Inferior ST-elevation myocardial infarction status post successful PCI with AWILDA x1 to mid RCA which had 99% thrombotic stenosis. -patient was hypotensive in the ballistics laboratory [facility] which resolved with fluids -cardiology following the patient, continue aspirin, Brilinta, metoprolol, atorvastatin (2) CAD (coronary artery disease): Code(s): I25.10 - Atherosclerotic heart disease of [place] coronary artery without angina pectoris Status: Acute Assessment and Plan: History of coronary artery disease status post PCI and PTCA to mid RCA which was widely patent on coronary angiogram (3) Diabetes mellitus type 1.5: Code(s): E13.9 - Other specified diabetes mellitus without complications Status: Acute Assessment and Plan: Blood sugars have been stable Continue Accu-Cheks and sliding scale insulin Hold metformin for now Hemoglobin A1c was 8.1 on 08/25/2024 (4) Hypothyroid: Code(s): E03.9 - Hypothyroidism, unspecified Status: Acute Assessment and Plan: Continue levothyroxine (5) Hyperlipidemia, unspecified: Code(s): E78.5 - Hyperlipidemia, unspecified Status: Acute Assessment and Plan: Continue atorvastatin Plan DVT prophylaxis: Status post cardiac catheterization Stress ulcer prophylaxis: Not indicated Nutrition: Heart healthy diet Code Status: Full code Critical Care Time Spent: 47 minutes Due to a high probability of clinically significant, life threatening deterioration, the patient required my highest level of preparedness to intervene emergently and I personally spent this critical care time directly and personally managing the patient. This critical care time included obtaining a history; examining the patient; pulse oximetry; ordering and review of studies; arranging urgent treatment with development of a management plan; evaluation of patient's response to treatment; frequent reassessment; and discussions with other providers. It was exclusive of separately billable procedures and treating other patients and teaching time. Please see Assessment and Plan section and the rest of the note for further information on patient assessment and treatment This dictation may have been done utilizing a voice recognition system. Attempts have been made to correct errors. However, there may be uncorrected grammatical, spelling, and recognitions errors present. Front Office Attendant Consult Note Consult date: 09/13/24 Reason for consult: STEMI status post PTCA/PCI with AWILDA x1 to mid RCA to mid RCA HPI: Eric Freeman is a 64 year old male with h/o CAD s/p prior PCI and PTCA (unknown artery) in 2018, HTN, HLD, esophageal stricture, hypothyroidism, GERD, DM presents with CC of pressure like chest pain with onset around 7:30pm tonight while sitting in his couch. The chest pain is of intensity 10/10 with radiation to the left shoulder and jaw. It is associated with diaphoresis. He had left sided shoulder pain with paresthesias and tingling 2 days back with radiation to the jaw for which he presented to Urgent care. He was given asa 325mg at the Urgent care and sent to the ER in his private vehicle as patient refused an ambulance. His symptoms had resolved by the time he arrived to the ER. EKG at that time was without any acute ST-T changes and patient was discharged home. He currently denies any SOB, palpitations, dizziness, LH, PND, orthopnea, pre syncope, syncope, nausea, emesis, abdominal pain. EKG today shows inferior ST elevations with reciprocal ST depressions consistent with inferior STEMI. Patient was taken to the cardiac ballistics laboratory [facility] he was found to have 99% thrombotic stenosis of the mid RCA status post IVUS, PTCA/PCI AWILDA x1 to mid RCA to mid RCA. There was nonobstructive coronary artery disease in mid LAD and proximal left circumflex. Patient was transferred to the ICU for further management 09/13/2024: Patient seen and examined the ICU this morning. Very pleasant gentleman currently chest pain free, denies any shortness for breath, nausea, diaphoresis, abdominal pain, vomiting. 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 Rectal Hemorrhage Metatarsalgia, right foot Osteonecrosis of both hips Arthritis of both hips Hypothyroid ASHD (arteriosclerotic heart disease) Acute thyroiditis Hyperlipidemia, unspecified Meniere's disease, unspecified Stricture and stenosis of esophagus Type 2 diabetes mellitus with hyperglycemia Surgical History Surgical History H/O cervical spine surgery S/P right inguinal hernia repair robotic assisted right inguinal hernia repair with mesh 08/14/22 History of coronary artery stent placement 1 stent 09/2017 Family History Family History (Updated 09/13/24 @ 00:00 by Brent Harris RN) Father Family history of cardiovascular disease Family history of lymphoma Parkinsons disease Mother Family history of cardiovascular disease Family history of elevated blood lipids Diabetes mellitus Hypertension Acute myocardial infarction Grandparent Acute myocardial infarction Other Depression Family history of arthritis Family history of malignant neoplasm of bone Social History Social History Social History: Caffeine-coffee/tea Smoking status: Never smoker Alcohol intake: current Drinks per week: 1 Alcohol use details: VERY RARE Substance use: never Substance use type: does not use Do You Feel Safe in your Home?: Yes Lack of Transportation: No Lack of Food: Never True Current Housing: I Have Housing Concerned About Future Housing: No Difficulty Paying Gas/Electric Bills: No Difficulty Paying for Meds: No Currently Unemployed: No Education: Decline to Answer Difficulty w/ Childcare or Family Care: No Living arrangements: with family Spiritual care concerns: No Meds Home Medications and Allergies Home Medications ?Medication ?Instructions ?Recorded ?Confirmed ?Type aspirin 81 mg tablet,delayed 81 mg PO DAILY 08/18/19 09/12/24 History release (Adult Low Dose Aspirin) nitroglycerin 0.4 mg sublingual 0.4 mg sublingual PRN 02/08/21 09/12/24 History tablet flash glucose scanning reader #1 ea 02/13/23 09/12/24 Rx (FreeStyle Viry 2 [place]) flash glucose sensor (FreeStyle #13 ea 03/11/23 09/12/24 Rx Viry 2 Sensor kit) blood-glucose sensor (FreeStyle #13 ea 03/12/23 09/12/24 Rx Viry 3 Sensor device) atorvastatin 40 mg tablet 40 mg PO DAILY #90 tabs 10/28/23 09/12/24 Rx omeprazole 20 mg capsule,delayed 20 mg PO DAILY #90 caps 10/28/23 09/12/24 Rx release metformin 1,000 mg tablet,extended 1,000 mg PO DAILY #90 tabs 04/04/24 09/12/24 Rx release 24hr (osmotic) insulin degludec 100 unit/mL (3 10 unit (0.1 mL) subcut DAILY #15 08/29/24 09/12/24 Rx mL) subcutaneous pen (Tresiba mL FlexTouch U-100 insulin) pen needle, diabetic 32 gauge x #100 ea 08/31/24 09/12/24 Rx 1/6 (NovoFine Plus) levothyroxine 75 mcg tablet 75 mcg PO DAILY #90 tabs 09/09/24 09/12/24 Rx ticagrelor 90 mg tablet (Brilinta) 90 mg PO Q12HR 30 days #60 tabs 09/13/24 Rx Allergies Allergy/AdvReac Type Severity Reaction Status Date / Time quinine Allergy Intermediate Skin Verified 09/12/24 20:55 Reaction Quinolones Allergy Intermediate RASH Verified 09/12/24 20:55 simvastatin Allergy Intermediate myalgias Verified 09/12/24 20:55 Vital Signs Vital Signs - 24 hr 09/12/24 20:38 09/12/24 20:43 09/12/24 20:44 Temperature 97.6 F Pulse Rate 81 80 Pulse Rate [Bilateral Radial Palpation] Respiratory Rate 25 H Blood Pressure 127/75 Pulse Oximetry 100 100 Oxygen Delivery Room Air Nasal Cannula Oxygen Flow Rate 2 09/12/24 20:47 09/12/24 21:05 09/12/24 23:00 Temperature Pulse Rate 68 Pulse Rate [Bilateral Radial Palpation] Respiratory Rate 20 Blood Pressure 118/71 Pulse Oximetry 100 100 Oxygen Delivery Nasal Cannula Room Air Oxygen Flow Rate 2 09/12/24 23:15 09/12/24 23:15 09/12/24 23:15 Temperature Pulse Rate 75 75 Pulse Rate [Bilateral Radial Palpation] 75 Respiratory Rate 16 Blood Pressure 91/59 L Pulse Oximetry 99 Oxygen Delivery Oxygen Flow Rate 09/13/24 00:00 09/13/24 00:00 09/13/24 01:30 Temperature 97.8 F Pulse Rate 65 65 63 Pulse Rate [Bilateral Radial Palpation] 63 Respiratory Rate 15 13 Blood Pressure 97/55 L 101/66 Pulse Oximetry 99 99 Oxygen Delivery Oxygen Flow Rate 09/13/24 02:00 09/13/24 02:15 09/13/24 02:30 Temperature Pulse Rate 62 62 62 Pulse Rate [Bilateral Radial Palpation] 62 Respiratory Rate 14 14 Blood Pressure 105/64 Pulse Oximetry 97 97 Oxygen Delivery Oxygen Flow Rate 09/13/24 02:30 09/13/24 03:30 09/13/24 04:00 Temperature Pulse Rate 67 62 Pulse Rate [Bilateral Radial Palpation] 62 67 62 Respiratory Rate 15 16 Blood Pressure 103/62 107/63 Pulse Oximetry 97 97 Oxygen Delivery Oxygen Flow Rate 09/13/24 04:00 09/13/24 04:00 09/13/24 04:00 Temperature 98.0 F Pulse Rate 64 64 Pulse Rate [Bilateral Radial Palpation] Respiratory Rate 18 Blood Pressure 107/63 Pulse Oximetry 99 Oxygen Delivery Room Air Oxygen Flow Rate 09/13/24 05:15 09/13/24 05:30 09/13/24 06:00 Temperature Pulse Rate 64 64 60 Pulse Rate [Bilateral Radial Palpation] 64 64 Respiratory Rate 13 14 Blood Pressure 108/67 113/73 Pulse Oximetry 99 97 Oxygen Delivery Oxygen Flow Rate 09/13/24 06:00 09/13/24 06:00 09/13/24 06:15 Temperature Pulse Rate 60 60 63 Pulse Rate [Bilateral Radial Palpation] 60 63 Respiratory Rate 15 15 15 Blood Pressure 114/66 114/66 121/60 Pulse Oximetry 98 98 96 Oxygen Delivery Oxygen Flow Rate 09/13/24 06:30 09/13/24 06:45 09/13/24 08:00 Temperature 97.8 F Pulse Rate 60 63 65 Pulse Rate [Bilateral Radial Palpation] 60 63 Respiratory Rate 11 L 14 16 Blood Pressure 108/68 108/68 117/69 Pulse Oximetry 97 96 99 Oxygen Delivery Oxygen Flow Rate 09/13/24 08:00 09/13/24 08:00 09/13/24 09:21 Temperature Pulse Rate 67 73 Pulse Rate [Bilateral Radial Palpation] Respiratory Rate Blood Pressure Pulse Oximetry Oxygen Delivery Room Air Oxygen Flow Rate 09/13/24 10:00 09/13/24 10:00 Temperature Pulse Rate 69 69 Pulse Rate [Bilateral Radial Palpation] Respiratory Rate 16 Blood Pressure 110/66 Pulse Oximetry 97 Oxygen Delivery Oxygen Flow Rate Exam Narrative: General: pleasant gentleman in no acute distress HEENT:? Pupils equal and reactive, sclera is clear Neck:? Supple Respiratory:? Clear to auscultation bilaterally, no wheezing, adequate air entry Cardiac:? S1-S2 was normal, regular rate and rhythm Abdomen:? Soft, non tender, non distended, normoactive bowel so Extremities:? Bilateral lower extremities without edema, palpable pedal pulses. Right radial site without any ecchymosis or hematoma. Palpable right radial artery Neuro:? Patient is awake, alert, oriented x3, nonfocal Skin:? No skin lesions noted Psych:? Normal mentation after Results Labs 09/13/24 08:06 09/13/24 08:06 Labs: Short CBC 09/12/24 09/13/24 Range/Units 20:44 08:06 WBC 8.5 5.3 (4.5-10.0) K/mm3 Hgb 13.2 L 12.1 L (14.0-18.0) g/dL Hct 40.1 L 37.3 L (42.0-52.0) % Plt Count 258 199 (150-375) k/mm3 BMP 09/12/24 09/13/24 20:44 08:06 Sodium 138 139 Potassium 3.7 4.1 Chloride 103 105 Carbon Dioxide 15 L 26 BUN 18 15 Creatinine 0.74 0.64 L Glucose 177 H 99 Calcium 9.8 9.2 Cardiac Enzymes 09/12/24 Range/Units 20:44 Troponin I 0.058 H* (0.000-0.034) ng/mL Liver Function 09/12/24 Range/Units 20:44 Total Bilirubin 0.6 (0.2-1.3) mg/dL AST 25 (17-59) U/L ALT 35 (6-50) U/L Alkaline Phosphatase 76 (38-126) U/L Albumin 4.5 (3.5-5.1) g/dL
[2024-09-13 11:48] LABS: Glucose Point of Care 147 mg/dl (65-105)
--- NOTE | 2024-09-13 13:56 | P.CONIM_ITS ---
Assessment and Plan Assessment and plan (1) Acute ST elevation myocardial infarction: Code(s): I21.3 - ST elevation (STEMI) myocardial infarction of unspecified site Status: Acute (2) CAD (coronary artery disease): Code(s): I25.10 - Atherosclerotic heart disease of [place] coronary artery without angina pectoris Status: Acute (3) Diabetes mellitus type 1.5: Code(s): E13.9 - Other specified diabetes mellitus without complications Status: Acute (4) Hypothyroid: Code(s): E03.9 - Hypothyroidism, unspecified Status: Acute (5) Hyperlipidemia, unspecified: Code(s): E78.5 - Hyperlipidemia, unspecified Status: Acute Plan Eric Freeman is a 64 year old male who presented on 09/12/2024 with chest pain around 7:30 p.m.. Feels similar to when he had DE in 2019. Related to the left arm. EMS was called and was found to have ST-elevation on the EKG. STEMI alert was activated. In the ED his vitals were stable EKG showed acute inferior ST-elevation DE. Cardiology was consulted and underwent cardiac catheterization on 09/12/2024 which showed 50% stenosis in mid LAD 60% stenosis in the proximal 1st diagonal 60% stenosis in proximal LCX patent stent in mid RCA. 99% thrombotic stenosis in the mid RCA just proximal to the prior stent. Underwent PCI to mid RCA successfully. Patient has been on dual antiplatelet therapy with aspirin and Brilinta along with atorvastatin. Echo is planned. Beta-rajani has been started. Patient has underlying diabetes hypothyroidism hyperlipidemia for which medical management consultation is requested. He denies any chest pain or shortness of breath or any other issues. Acute ST-elevation [place] Coronary artery disease history of coronary artery disease status post PCI to mid RCA in 2019. Catheterization 09/12/2024 with 99% thrombotic stenosis of mid RCA and nonobstructive coronary artery disease in mid LAD and proximal LCX. Dual antiplatelet therapy as ordered along with beta-rajani and statin. Type 2 diabetes mellitus on insulin. On degludec at home along with metformin which will be continued upon discharge. Currently on hold. Currently on SSI. A1c 8.1. Blood sugar trend reviewed Hypothyroidism levothyroxine TSH has been normal. Hyperlipidemia on atorvastatin LDL is 81. Increase atorvastatin to 80 mg daily. Goal LDL less than 50 DVT prophylaxis SCDs Code status full code HPI Date of Consult Consult date: 09/13/24 Requesting Physician: Aide Lopez MD Primary Care Provider: Eric Riley MD Consult Narrative Narrative: Eric Freeman is a 64 year old male who presented on 09/12/2024 with chest pain around 7:30 p.m.. Feels similar to when he had DE in 2019. Related to the left arm. EMS was called and was found to have ST-elevation on the EKG. STEMI alert was activated. In the ED his vitals were stable EKG showed acute inferior ST-elevation DE. Cardiology was consulted and underwent cardiac catheterization on 09/12/2024 which showed 50% stenosis in mid LAD 60% stenosis in the proximal 1st diagonal 60% stenosis in proximal LCX patent stent in mid RCA. 99% thrombotic stenosis in the mid RCA just proximal to the prior stent. Underwent PCI to mid RCA successfully. Patient has been on dual antiplatelet therapy with aspirin and Brilinta along with atorvastatin. Echo is planned. Beta-rajani has been started. Patient has underlying diabetes hypothyroidism hyperlipidemia for which medical management consultation is requested. He denies any chest pain or shortness of breath or any other issues. He was recently started on insulin due to elevated A1c which is has been a week now. Used to be on oral metformin prior to that. Review of Systems 2 Review of Systems: - CONSTITUTIONAL: Denies weight loss, fe yas and chills. - HEENT: Denies changes in vision and he aring - RESPIRATORY: Denies SOB and cough. - CV: Denies palpitations and CP. - GI: Denies abdominal pain, nausea, vom iting and diarrhea. - : Denies dysuria and urinary frequen cy. - MSK: Denies myalgia and joint pain. - SKIN: Denies rash and pruritus. - NEUROLOGICAL: Denies headache and sync ope. - PSYCHIATRIC: Denies recent changes in mood. Denies anxiety and depression. 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 Rectal Hemorrhage Metatarsalgia, right foot Osteonecrosis of both hips Arthritis of both hips Hypothyroid ASHD (arteriosclerotic heart disease) Acute thyroiditis Hyperlipidemia, unspecified Meniere's disease, unspecified Stricture and stenosis of esophagus Type 2 diabetes mellitus with hyperglycemia Surgical History Surgical History H/O cervical spine surgery S/P right inguinal hernia repair robotic assisted right inguinal hernia repair with mesh 08/14/22 History of coronary artery stent placement 1 stent 09/2017 Family History Family History (Updated 09/13/24 @ 00:00 by Brent Harris RN) Father Family history of cardiovascular disease Family history of lymphoma Parkinsons disease Mother Family history of cardiovascular disease Family history of elevated blood lipids Diabetes mellitus Hypertension Acute myocardial infarction Grandparent Acute myocardial infarction Other Depression Family history of arthritis Family history of malignant neoplasm of bone Social History Social History Social History: Caffeine-coffee/tea Smoking status: Never smoker Alcohol intake: current Drinks per week: 1 Alcohol use details: VERY RARE Substance use: never Substance use type: does not use Do You Feel Safe in your Home?: Yes Lack of Transportation: No Lack of Food: Never True Current Housing: I Have Housing Concerned About Future Housing: No Difficulty Paying Gas/Electric Bills: No Difficulty Paying for Meds: No Currently Unemployed: No Education: Decline to Answer Difficulty w/ Childcare or Family Care: No Living arrangements: with family Spiritual care concerns: No Meds Home Medications and Allergies Home Medications ?Medication ?Instructions ?Recorded ?Confirmed ?Type aspirin 81 mg tablet,delayed 81 mg PO DAILY 08/18/19 09/12/24 History release (Adult Low Dose Aspirin) nitroglycerin 0.4 mg sublingual 0.4 mg sublingual PRN 02/08/21 09/12/24 History tablet flash glucose scanning reader #1 ea 02/13/23 09/12/24 Rx (FreeStyle Viry 2 [place]) flash glucose sensor (FreeStyle #13 ea 03/11/23 09/12/24 Rx Viry 2 Sensor kit) blood-glucose sensor (FreeStyle #13 ea 03/12/23 09/12/24 Rx Viry 3 Sensor device) atorvastatin 40 mg tablet 40 mg PO DAILY #90 tabs 10/28/23 09/12/24 Rx omeprazole 20 mg capsule,delayed 20 mg PO DAILY #90 caps 10/28/23 09/12/24 Rx release metformin 1,000 mg tablet,extended 1,000 mg PO DAILY #90 tabs 04/04/24 09/12/24 Rx release 24hr (osmotic) insulin degludec 100 unit/mL (3 10 unit (0.1 mL) subcut DAILY #15 08/29/24 09/12/24 Rx mL) subcutaneous pen (Tresiba mL FlexTouch U-100 insulin) pen needle, diabetic 32 gauge x #100 ea 08/31/24 09/12/24 Rx / (NovoFine Plus) levothyroxine 75 mcg tablet 75 mcg PO DAILY #90 tabs 09/09/24 09/12/24 Rx ticagrelor 90 mg tablet (Brilinta) 90 mg PO Q12HR 30 days #60 tabs 09/13/24 Rx Allergies Allergy/AdvReac Type Severity Reaction Status Date / Time quinine Allergy Intermediate Skin Verified 09/12/24 20:55 Reaction Quinolones Allergy Intermediate RASH Verified 09/12/24 20:55 simvastatin Allergy Intermediate myalgias Verified 09/12/24 20:55 Vital Signs Vital Signs - 24 hr 09/12/24 20:38 09/12/24 20:43 09/12/24 20:44 Temperature 97.6 F Pulse Rate 81 80 Pulse Rate [Bilateral Radial Palpation] Respiratory Rate 25 H Blood Pressure 127/75 Pulse Oximetry 100 100 Oxygen Delivery Room Air Nasal Cannula Oxygen Flow Rate 2 09/12/24 20:47 09/12/24 21:05 09/12/24 23:00 Temperature Pulse Rate 68 Pulse Rate [Bilateral Radial Palpation] Respiratory Rate 20 Blood Pressure 118/71 Pulse Oximetry 100 100 Oxygen Delivery Nasal Cannula Room Air Oxygen Flow Rate 2 09/12/24 23:15 09/12/24 23:15 09/12/24 23:15 Temperature Pulse Rate 75 75 Pulse Rate [Bilateral Radial Palpation] 75 Respiratory Rate 16 Blood Pressure 91/59 L Pulse Oximetry 99 Oxygen Delivery Oxygen Flow Rate 09/13/24 00:00 09/13/24 00:00 09/13/24 01:30 Temperature 97.8 F Pulse Rate 65 65 63 Pulse Rate [Bilateral Radial Palpation] 63 Respiratory Rate 15 13 Blood Pressure 97/55 L 101/66 Pulse Oximetry 99 99 Oxygen Delivery Oxygen Flow Rate 02/25/25 02:00 09/13/24 02:15 09/13/24 02:30 Temperature Pulse Rate 62 62 62 Pulse Rate [Bilateral Radial Palpation] 62 Respiratory Rate 14 14 Blood Pressure 105/64 Pulse Oximetry 97 97 Oxygen Delivery Oxygen Flow Rate 09/13/24 02:30 09/13/24 03:30 09/13/24 04:00 Temperature Pulse Rate 67 62 Pulse Rate [Bilateral Radial Palpation] 62 67 62 Respiratory Rate 15 16 Blood Pressure 103/62 107/63 Pulse Oximetry 97 97 Oxygen Delivery Oxygen Flow Rate 09/13/24 04:00 09/13/24 04:00 09/13/24 04:00 Temperature 98.0 F Pulse Rate 64 64 Pulse Rate [Bilateral Radial Palpation] Respiratory Rate 18 Blood Pressure 107/63 Pulse Oximetry 99 Oxygen Delivery Room Air Oxygen Flow Rate 09/13/24 05:15 09/13/24 05:30 09/13/24 06:00 Temperature Pulse Rate 64 64 60 Pulse Rate [Bilateral Radial Palpation] 64 64 Respiratory Rate 13 14 Blood Pressure 108/67 113/73 Pulse Oximetry 99 97 Oxygen Delivery Oxygen Flow Rate 09/13/24 06:00 09/13/24 06:00 09/13/24 06:15 Temperature Pulse Rate 60 60 63 Pulse Rate [Bilateral Radial Palpation] 60 63 Respiratory Rate 15 15 15 Blood Pressure 114/66 114/66 121/60 Pulse Oximetry 98 98 96 Oxygen Delivery Oxygen Flow Rate 09/13/24 06:30 09/13/24 06:45 09/13/24 08:00 Temperature 97.8 F Pulse Rate 60 63 65 Pulse Rate [Bilateral Radial Palpation] 60 63 Respiratory Rate 11 L 14 16 Blood Pressure 108/68 108/68 117/69 Pulse Oximetry 97 96 99 Oxygen Delivery Oxygen Flow Rate 09/13/24 08:00 09/13/24 08:00 09/13/24 09:21 Temperature Pulse Rate 67 73 Pulse Rate [Bilateral Radial Palpation] Respiratory Rate Blood Pressure Pulse Oximetry Oxygen Delivery Room Air Oxygen Flow Rate 09/13/24 10:00 09/13/24 10:00 09/13/24 12:00 Temperature Pulse Rate 69 69 Pulse Rate [Bilateral Radial Palpation] Respiratory Rate 16 Blood Pressure 110/66 Pulse Oximetry 97 Oxygen Delivery Room Air Oxygen Flow Rate 09/13/24 12:00 09/13/24 12:00 Temperature 98.3 F Pulse Rate 68 73 Pulse Rate [Bilateral Radial Palpation] Respiratory Rate 18 Blood Pressure 111/66 Pulse Oximetry 97 Oxygen Delivery Oxygen Flow Rate Exam 2 Narrative: General: pleasant gentleman in no acute distress HEENT:? Pupils equal and reactive, sclera is clear Neck:? Supple Respiratory:? Clear to auscultation bilaterally, no wheezing, adequate air entry Cardiac:? S1-S2 was normal, regular rate and rhythm Abdomen:? Soft, non tender, non distended, normoactive bowel so Extremities:? Bilateral lower extremities without edema, palpable pedal pulses. Right radial site without any ecchymosis or hematoma. Palpable right radial artery Neuro:? Patient is awake, alert, oriented x3, nonfocal Skin:? No skin lesions noted Psych:? Normal mentation after Results Labs 09/13/24 08:06 09/13/24 08:06 Labs: Short CBC 09/12/24 09/13/24 Range/Units 20:44 08:06 WBC 8.5 5.3 (4.5-10.0) K/mm3 Hgb 13.2 L 12.1 L (14.0-18.0) g/dL Hct 40.1 L 37.3 L (42.0-52.0) % Plt Count 258 199 (150-375) k/mm3 BMP 09/12/24 09/13/24 20:44 08:06 Sodium 138 139 Potassium 3.7 4.1 Chloride 103 105 Carbon Dioxide 15 L 26 BUN 18 15 Creatinine 0.74 0.64 L Glucose 177 H 99 Calcium 9.8 9.2 Cardiac Enzymes 09/12/24 Range/Units 20:44 Troponin I 0.058 H* (0.000-0.034) ng/mL Liver Function 09/12/24 Range/Units 20:44 Total Bilirubin 0.6 (0.2-1.3) mg/dL AST 25 (17-59) U/L ALT 35 (6-50) U/L Alkaline Phosphatase 76 (38-126) U/L Albumin 4.5 (3.5-5.1) g/dL Hospitalist MIPS Advance Care Plan I have confirmed that the patient's Advanced Care Plan is present, code status is documented, or surrogate decision maker is listed in patient medical record.: Yes Medication Reconciliation I have utilized all available resources to obtain, update and review the patients current medications (includes all prescriptions, OTC, herbals, cannabis, and nutritional supplements).: Yes
[2024-09-13 17:15] LABS: Glucose Point of Care 103 mg/dl (65-105)
[2024-09-13 20:57] LABS: Glucose Point of Care 178 mg/dl (65-105)
[2024-09-14] VITALS (10 sets, daily range): BP systolic 110–121; BP diastolic 67–77; PULSE 61–92; RESP 12–24; TEMP 36.6; O2SAT 97–99
[2024-09-14 04:23] LABS: Basophils Percent Auto 0.4 % (0.2-1.2); Eosinophils Absolute Auto 0.1 K/mm3 (0-0.3); Eosinophils Percent Auto 2.1 % (0-4.4); Hematocrit 39.7 % (42.0-52.0); Hemoglobin 13.2 g/dL (14.0-18.0); Immature Granulocyte Absolute 0.01 K/mm3 (0.00-0.031); Immature Granulocyte Percent A 0.2 % (0-0.5); Lymphocytes Percent Auto 34.1 % (18.3-44.2); Mean Corpuscular HGB Conc 33.2 g/dl (32-36); Mean Corpuscular Hemoglobin 29.9 pg (26-34); Mean Platelet Volume 9.9 fl (7.4-10.4); Monocytes Absolute Auto 0.4 K/mm3 (0.1-0.6); Monocytes Percent Auto 7.6 % (2.6-8.5); Neutrophils Absolute Auto 2.9 K/mm3 (1.3-6.7); Neutrophils Percent Auto 55.6 % (45.5-73.1); Platelet Count Result 207 k/mm3 (150-375); Red Blood Count 4.41 M/mm3 (4.6-6.20); Red Cell Distribution Width 12.9 % (11.5-14.5); White Blood Count 5.3 K/mm3 (4.5-10.0)
[2024-09-14 04:34] LABS: Alanine Aminotransferase 25 U/L (6-50); Albumin Level 3.7 g/dL (3.5-5.1); Alkaline Phosphatase 58 U/L (38-126); Anion Gap 9 mmol/L (4-12); Aspartate Amino Transferase 22 U/L (17-59); Bilirubin,Total 0.6 mg/dL (0.2-1.3); Blood Urea Nitrogen 13 mg/dL (9-20); Calcium 9.4 mg/dL (8.4-10.2); Carbon Dioxide 26 mmol/L (22-30); Chloride 103 mmol/L (98-107); Estimated CRCL calculation 103 ml/min; Estimated Glomerular Filt Rate > 60; Glucose 117 mg/dL (65-110); Magnesium 1.7 mg/dL (1.6-2.3); Phosphorus 4.3 mg/dL (2.5-4.5); Potassium 4.1 mmol/L (3.4-5.0); Sodium 138 mmol/L (137-145)
[2024-09-14] MEDS: LEVOTHYROXINE SODIUM 75 MCG TABLET PO (06:21)
[2024-09-14 07:45] LABS: Glucose Point of Care 124 mg/dl (65-105)
[2024-09-14] MEDS: ATORVASTATIN 40 MG TABLET 80 MG PO (08:14)
[2024-09-14] MEDS: ASPIRIN 81 MG ENTERIC TABLET PO (08:14)
[2024-09-14] MEDS: METOPROLOL TARTRATE 12.5 MG TABLET PO (08:14)
[2024-09-14] MEDS: PANTOPRAZOLE 40 MG TABLET PO (08:15)
[2024-09-14] MEDS: TICAGRELOR 90 MG TABLET PO (08:15)
--- NOTE | 2024-09-14 09:37 | P.DS_ITS ---
DS: Admitting Diagnosis Discharge Date 09/14/2024 Admitting Diagnosis Inferior STEMI DS: Discharge Diagnosis Discharge Diagnosis (1) Acute ST elevation myocardial infarction: Code(s): I21.3 - ST elevation (STEMI) myocardial infarction of unspecified site Status: Acute (2) Hyperlipidemia, unspecified: Code(s): E78.5 - Hyperlipidemia, unspecified Status: Acute (3) Type 2 diabetes mellitus with hyperglycemia: Code(s): E11.65 - Type 2 diabetes mellitus with hyperglycemia Status: Acute (4) Hypothyroid: Code(s): E03.9 - Hypothyroidism, unspecified Status: Acute (5) CAD (coronary artery disease): Code(s): I25.10 - Atherosclerotic heart disease of [place] coronary artery without angina pectoris Status: Acute Plan Inferior STEMI status post successful I was guided PCI of mid RCA 99% thrombotic stenosis (just proximal to prior RCA stent) with 3.0x26 mm [place] [employer] AWILDA; CAD status post PCI and PTCA in the past- prior stent in mid RCA widely patent; nonobstructive CAD noted in mid LAD, proximal left circumflex and 1st diagonal Hypotension-resolved with IV fluids Hyperlipidemia Diabetes mellitus-poorly controlled with hemoglobin A1c of 8; on insulin Hypothyroidism-on levothyroxine Plan: -continue aspirin 81 mg daily indefinitely -increased dose of atorvastatin to 80 mg daily -continue Brilinta 90 mg b.i.d. for 1 year -increased metoprolol dose to 25 mg b.i.d. -cardiac rehab in 1 month -heart healthy and diabetic diet -continue other home medication -follow-up with primary wash test checker in 4 weeks -close follow-up with PCP for management of diabetes. Target hemoglobin A1c less than 6 DS: Summary Hospital Course Reason for hospitalization: Inferior STEMI Hospital Course: 64 y/o male patient with h/o CAD s/p prior PCI and PTCA (unknown vessel) in 2018, HLD, esophageal stricture, hypothyroidism, GERD, DM presented with sudden onset left-sided chest pain. EKG showed ST elevation in inferior leads and reciprocal depressions consistent with inferior STEMI. He underwent emergent cardiac catheterization status post successful IVUS guided PCI to mid RCA 99% thrombotic stenosis with 3.0X26mm [place] Med[employer] AWILDA. He also has a 50% stenosis in his proximal LAD, 60% stenosis in proximal 1st diagonal, 60% stenosis in proximal left circumflex arteries which will be treated medically. Prior stented mid RCA is widely patent (please see cardiac catheterization procedure report for full details). He tolerated the procedure well without any complications. TTE showed normal LV ejection fraction. He is on DAPT with aspirin and Brilinta for 1 year. After 1 year he can stop Brilinta and continue aspirin 81 mg daily indefinitely. He is on a statin. He was started on metoprolol tartrate 25 mg b.i.d. He will start cardiac rehab in 1 month. He will continue to follow with his PCP for management of diabetes mellitus. He is being discharged in stable condition to follow-up with his primary wash test checker in 4 weeks. Status at Discharge Cognitive/behavioral status at discharge: Stable Time Spent with Patient Time attestation: Total time spent providing and/or coordinating discharge services: 45 minutes Exam Narrative: General: Alert oriented x3, no acute distress Neck: Supple, no JVD Chest: Bilaterally clear to auscultation, no rales or rhonchi Cardiac: S1, S2 +, regular rate, regular rhythm, no murmurs or rubs Extremities: No pedal edema, no skin rash Neurologic: Alert and oriented x3, no focal neurological deficits DS: Data Data Completed and Pending Labs on day of discharge: Labs from last 24 hours 09/14/24 09/14/24 09/13/24 07:37 04:14 20:52 WBC 5.3 RBC 4.41 L Hgb 13.2 L Hct 39.7 L MCV 90.0 MCH 29.9 MCHC 33.2 RDW 12.9 Plt Count 207 MPV 9.9 Immature Gran % (Auto) 0.2 Neut % (Auto) 55.6 Lymph % (Auto) 34.1 [place] % (Auto) 7.6 Eos % (Auto) 2.1 Baso % (Auto) 0.4 Lymph # (Auto) 1.80 [place] # (Auto) 0.4 Eos # (Auto) 0.1 Baso # (Auto) 0.0 Abs Immat Gran (auto) 0.01 Absolute Neuts (auto) 2.9 Absolute Nucleated RBC 0.000 Nucleated RBC % 0.0 Sodium 138 Potassium 4.1 Chloride 103 Carbon Dioxide 26 Anion Gap 9 BUN 13 Creatinine 0.62 L Estim Creat Clear Calc 103 Estimated GFR > 60 Glucose 117 H POC Capillary Glucose 124 H 178 H Calcium 9.4 Phosphorus 4.3 Magnesium 1.7 Total Bilirubin 0.6 AST 22 ALT 25 Alkaline Phosphatase 58 Total Protein 7.0 Albumin 3.7 09/13/24 09/13/24 16:47 11:41 WBC RBC Hgb Hct MCV MCH MCHC RDW Plt Count MPV Immature Gran % (Auto) Neut % (Auto) Lymph % (Auto) [place] % (Auto) Eos % (Auto) Baso % (Auto) Lymph # (Auto) [place] # (Auto) Eos # (Auto) Baso # (Auto) Abs Immat Gran (auto) Absolute Neuts (auto) Absolute Nucleated RBC Nucleated RBC % Sodium Potassium Chloride Carbon Dioxide Anion Gap BUN Creatinine Estim Creat Clear Calc Estimated GFR Glucose POC Capillary Glucose 103 147 H Calcium Phosphorus Magnesium Total Bilirubin AST ALT Alkaline Phosphatase Total Protein Albumin Discharge Plan Discharge Attending physician on discharge: Aide Lopez Consulting providers: Danny Gujaardo Discharging Clinician: Aide Lopez Anticipated Discharge Date/Time: 09/14/24 13:22 Patient Disposition: Home, Self-Care Activity: may shower Diet: heart healthy and diabetic Wound Care Instructions: follow printed instructions Discharge Instructions: [facility] [address] [place] [address] DISCHARGE INSTRUCTIONS - POST PCI Activity 1. No driving until . 2. No lifting, pushing or pulling more than 10 pounds for 1 week. 3. No strenuous exercise or activity (including sexual activity) until you are released to do so. 4. May shower but no tub baths or swimming pool for 1 week. Avoid commercial hot tubs. They are too hot. Medications DO NOT STOP YOUR MEDICATIONS ONLY YOUR SUPERINTENDENT TRACK CAN STOP THE FOLLOWING MEDICATIONS - PLEASE CALL THE OFFICE WITH QUESTIONS. *Aspirin *Ticagrelor (Brilinta) *Atorvastatin *Lisinopril or ARB *Metoprolol tartrate or succinate *Clopidogrel (Plavix) *Prasugrel (Effient) Important Reminders 1. Keep your stent card in your wallet at all times 2. Follow a heart healthy diet paying extra attention to cholesterol and fats. 3. Stay hydrated. 4. If you have chest pain unrelieved by rest or nitroglycerin (if prescribed) call 911 immediately. 5. If you miss one dose of Brilinta (if prescribed) take a tablet at the next time due. If you miss 2 doses take a tablet when you remember and resume at the next time due. *For any other questions please call the office at [phone]. Office hours are 8AM 4:30PM Thursday through Thursday. Patient Instructions: Antibiotic Form, Ticagrelor (By mouth) Patient Language: Danish Stand Alone Forms: General Discharge Information Follow-up/Referrals: joseph [Other] Eric Esposito MD [Physician] - (in 4 weeks post discharge ) Discharge Medications: New Brilinta 90 mg Tablet 90 mg PO Q12HR 30 Days Qty: 60 11RF atorvastatin 40 mg Tablet 80 mg PO DAILY Qty: 60 12RF metoprolol tartrate 25 mg Tablet 25 mg PO Q12HR Qty: 60 12RF Discontinued atorvastatin 40 mg tablet 40 mg PO DAILY Qty: 90 3RF No Action aspirin [Adult Low Dose Aspirin] 81 mg tablet,delayed release (DR/EC) 81 mg PO DAILY (DME) FreeStyle Viry 3 Sensor Device See Rx Instructions .Route Qty: 13 3RF Rx Instructions: As directed omeprazole 20 mg capsule,delayed release(DR/EC) 20 mg PO DAILY Qty: 90 3RF Rx Instructions: Take 1 capsule by mouth once daily insulin degludec [Tresiba FlexTouch U-100] 100 unit/mL (3 mL) insulin pen 10 unit subcut DAILY Qty: 15 5RF nitroglycerin 0.4 mg tablet, sublingual 0.4 mg sublingual PRN (DME) FreeStyle Viry 2 [place] Misc See Rx Instructions .ROUTE .MEDSUPPLY Qty: 1 0RF Rx Instructions: As directed (DME) FreeStyle Viry 2 Sensor Kit See Rx Instructions .ROUTE .MEDSUPPLY Qty: 13 3RF Rx Instructions: As directed metformin 1,000 mg tablet extended release 24 hr 1,000 mg PO DAILY Qty: 90 1RF (DME) NovoFine Plus 32 gauge x 1/6 needle See Rx Instructions .Route Qty: 100 3RF Rx Instructions: As directed use with Tresiba pen levothyroxine 75 mcg tablet 75 mcg PO DAILY Qty: 90 1RF Other Ambulatory Orders: Diabetes Education Referral (Routine) Timeframe: 1 Day Location: Determined by Patient Ordered By: Javi Pastrana Date of admission: 09/12/24 21:20 Primary Care Provider: Eric Riley Admitting Provider: Aide Lopez Attending physician on admission: Aide Lopez Condition: Stable
--- NOTE | 2024-09-14 12:08 | PM.IMPN ---
Progress Note: A&P Assessment and Plan (1) Acute ST elevation myocardial infarction: Code(s): I21.3 - ST elevation (STEMI) myocardial infarction of unspecified site Status: Acute (2) CAD (coronary artery disease): Code(s): I25.10 - Atherosclerotic heart disease of [place] coronary artery without angina pectoris Status: Acute (3) Diabetes mellitus type 1.5: Code(s): E13.9 - Other specified diabetes mellitus without complications Status: Acute (4) Hypothyroid: Code(s): E03.9 - Hypothyroidism, unspecified Status: Acute (5) Hyperlipidemia, unspecified: Code(s): E78.5 - Hyperlipidemia, unspecified Status: Acute Plan Patient presented with chest pain. Acute ST-elevation SD - EMS was called and was found to have ST-elevation on the EKG. STEMI alert was activated. Patient underwent cardiac catheterization on 09/12/2024 which showed 50% stenosis in mid LAD 60% stenosis in the proximal 1st diagonal 60% stenosis in proximal LCX patent stent in mid RCA. 99% thrombotic stenosis in the mid RCA just proximal to the prior stent. Underwent PCI to mid RCA successfully. Patient has been on dual antiplatelet therapy with aspirin and Brilinta along with atorvastatin. Echo showing EF 55-60%, Grade I diastolic dysfunction and akinesis of the base to midposition of the inferior segment. Continue Beta-rajani, Brilinta, ASA, Lipitor. Coronary artery disease - hx of CAD status post PCI to mid RCA in 2019. Medical mngmt DM Type 2 - On degludec at home along with metformin which will be continued upon discharge. Currently on hold. Currently on SSI. A1c 8.1. Blood sugar trend reviewed Hypothyroidism - TSH okay. Continue levothyroxine Hyperlipidemia - Was on atorvastatin 40mg with LDL is 81. Increase atorvastatin to 80 mg daily. Goal LDL less than 50 DVT prophylaxis SCDs Code status full code Subjective Date/time seen: 09/14/24 12:08 Interval history: 64yo male with CAD and DM here for chest pain . Assuming care. Chart reviewed. Patient slept well. No chest pain or shortness a breath. No nausea or vomiting. Eating normally. Exam Narrative: AF 98 110/67 70 24 97% ra Gen - NARD Chest - CTA bilaterally, nml RR CV - RRR S1/S2 Abd - Soft, NT/ND, Positive BS Ext - No pedal edema. 2+ radial pulse on the right. Normal sensation to the right hand. 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 2+ PT pulses bilaterally Psych - Nml mood and affect Skin - Warm and dry Objective Data Vital Signs Vital Signs: Vital Signs - 24 hr 09/13/24 14:00 09/13/24 14:00 09/13/24 16:00 Temperature 98.3 F 98.1 F Pulse Rate 79 73 80 Respiratory Rate 18 20 Blood Pressure 111/66 114/51 L Pulse Oximetry 97 98 Oxygen Delivery 09/13/24 16:00 09/13/24 16:00 09/13/24 18:00 Temperature Pulse Rate 80 85 Respiratory Rate Blood Pressure Pulse Oximetry Oxygen Delivery Room Air 09/13/24 20:00 09/13/24 20:40 09/13/24 20:50 Temperature 98.2 F Pulse Rate 69 85 66 Respiratory Rate 20 14 Blood Pressure 118/50 L Pulse Oximetry 98 98 Oxygen Delivery Room Air 09/13/24 20:53 09/13/24 22:00 09/13/24 23:41 Temperature Pulse Rate 80 67 69 Respiratory Rate 18 Blood Pressure Pulse Oximetry 97 Oxygen Delivery Room Air 09/13/24 23:46 09/14/24 00:00 09/14/24 02:00 Temperature 98.0 F Pulse Rate 67 73 71 Respiratory Rate 16 Blood Pressure 125/70 Pulse Oximetry 98 Oxygen Delivery 09/14/24 03:45 09/14/24 04:00 09/14/24 04:00 Temperature 98 F Pulse Rate 63 61 69 Respiratory Rate 14 12 Blood Pressure 114/67 Pulse Oximetry 99 98 Oxygen Delivery Room Air 09/14/24 06:00 09/14/24 07:43 09/14/24 08:00 Temperature Pulse Rate 72 76 82 Respiratory Rate 21 H 21 H Blood Pressure 121/77 Pulse Oximetry 97 97 Oxygen Delivery Room Air 09/14/24 08:00 09/14/24 08:14 09/14/24 10:00 Temperature Pulse Rate 92 82 78 Respiratory Rate Blood Pressure Pulse Oximetry Oxygen Delivery 09/14/24 11:21 Temperature Pulse Rate 70 Respiratory Rate 24 H Blood Pressure 110/67 Pulse Oximetry 97 Oxygen Delivery Intake/Output Intake/Output: Intake & Output 09/11/24 09/12/24 09/13/24 09/14/24 23:59 23:59 23:59 23:59 Intake Total 1320 640 Output Total 3260 600 Balance -1940 40 Meds/Results Medications: Active Medications Generic Name Dose Route Start Last Admin Trade Name Freq PRN Reason Stop Dose Admin Acetaminophen 650 mg 09/13/24 00:28 Acetaminophen 325 Mg Tablet PO Q6H PRN Mild Pain (1-3) or Fever Aspirin 81 mg 09/15/24 09:00 Aspirin 81 Mg Enteric Tablet PO DAILY [facility] Atorvastatin Calcium 80 mg 09/15/24 09:00 Atorvastatin 40 Mg Tablet PO DAILY [facility] Dextrose 12.5 gm 09/13/24 00:28 Dextrose 50% 25 Gm/50 Ml Syringe IV PUSH PRN PRN Hypoglycemia Protocol Glucagon 1 mg 09/13/24 00:28 Glucagon For Inj 1 Mg Vial IM PRN PRN Hypoglycemia Protocol Glucose 15 gm 09/13/24 00:28 Glucose Oral Gel 15 Gm Of Glucse In 37.5 Gm Tube PO PRN PRN Hypoglycemia Protocol Dextrose 1,000 mls @ 100 mls/hr 09/13/24 00:28 Dextrose 5% 1,000 Ml IVPB PRN PRN Hypoglycemia Protocol Insulin Aspart 2 - 5 units 09/13/24 08:00 09/14/24 08:16 Insulin Aspart (*Bkc) 100 Units/Ml SUB-Q Not Given TIDWM [facility] Protocol Insulin Aspart 1 - 2 units 09/13/24 21:00 09/13/24 20:54 Insulin Aspart (*Bkc) 100 Units/Ml SUB-Q Not Given HS [facility] Protocol Insulin Glargine 10 units 09/14/24 09:00 Insulin Glargine (*Bkc) 100 Units/Ml SUB-Q 10/15/24 08:59 DAILY [facility] Levothyroxine Sodium 75 mcg 09/15/24 06:30 Levothyroxine Sodium 75 Mcg Tablet PO DAILY@0630 [facility] Metformin HCl 1,000 mg 09/14/24 09:50 Metformin Hcl Xr 500 Mg Tab.Sr.24h PO DAILY@0800 [facility] Metoprolol Tartrate 25 mg 09/14/24 21:00 Metoprolol Tartrate 25 Mg Tablet PO Q12HR [facility] Pantoprazole Sodium 40 mg 09/15/24 09:00 Pantoprazole 40 Mg Tablet PO 10/15/24 08:59 DAILY [facility] Perflutren Lipid Microsphere 0 ml 09/13/24 09:53 Perflutren Lipid Microspheres 1.5 Ml Vial Diluted To 10 Ml Total Volume IV PUSH 09/16/24 09:53 ONCE PRN adequate visualization Protocol Ticagrelor 90 mg 09/13/24 09:00 09/14/24 08:15 Ticagrelor 90 Mg Tablet PO 90 mg Q12HR MIGUEL Administration Radiology Results: ITS Impressions Chest X-Ray 09/12/24 21:18 IMPRESSION: No acute cardiopulmonary process. Labs Labs: Laboratory Results - last 24 hr 09/13/24 09/13/24 09/14/24 16:47 20:52 04:14 WBC 5.3 RBC 4.41 L Hgb 13.2 L Hct 39.7 L MCV 90.0 MCH 29.9 MCHC 33.2 RDW 12.9 Plt Count 207 MPV 9.9 Immature Gran % (Auto) 0.2 Neut % (Auto) 55.6 Lymph % (Auto) 34.1 [place] % (Auto) 7.6 Eos % (Auto) 2.1 Baso % (Auto) 0.4 Lymph # (Auto) 1.80 [place] # (Auto) 0.4 Eos # (Auto) 0.1 Baso # (Auto) 0.0 Abs Immat Gran (auto) 0.01 Absolute Neuts (auto) 2.9 Absolute Nucleated RBC 0.000 Nucleated RBC % 0.0 Sodium 138 Potassium 4.1 Chloride 103 Carbon Dioxide 26 Anion Gap 9 BUN 13 Creatinine 0.62 L Estim Creat Clear Calc 103 Estimated GFR > 60 Glucose 117 H POC Capillary Glucose 103 178 H Calcium 9.4 Phosphorus 4.3 Magnesium 1.7 Total Bilirubin 0.6 AST 22 ALT 25 Alkaline Phosphatase 58 Total Protein 7.0 Albumin 3.7 09/14/24 07:37 WBC RBC Hgb Hct MCV MCH MCHC RDW Plt Count MPV Immature Gran % (Auto) Neut % (Auto) Lymph % (Auto) [place] % (Auto) Eos % (Auto) Baso % (Auto) Lymph # (Auto) [place] # (Auto) Eos # (Auto) Baso # (Auto) Abs Immat Gran (auto) Absolute Neuts (auto) Absolute Nucleated RBC Nucleated RBC % Sodium Potassium Chloride Carbon Dioxide Anion Gap BUN Creatinine Estim Creat Clear Calc Estimated GFR Glucose POC Capillary Glucose 124 H Calcium Phosphorus Magnesium Total Bilirubin AST ALT Alkaline Phosphatase Total Protein Albumin
[2024-09-14 12:11] LABS: Glucose Point of Care 132 mg/dl (65-105)
--- NOTE | 2024-09-14 12:46 | PCCPR ---
Met with patient and his His at bedside. Overview of program given he verbalized understanding and states he attended our program in 2018. They both expressed interest, information left at bedside. His states he has a previously scheduled apt with Dr Hogan on Thursday and would verify if they want to postpone a couple weeks.
--- NOTE | 2024-09-14 12:51 | PC.NURSE ---
discharge paper work reviewed with patient and family member (spouse). Verbalized understanding.
--- NOTE | 2024-09-14 15:53 | PCCDE ---
09/14/24 [facility] DM follow up call placed. Pt denies questions re: DM or his medications. Provided CDC direct line prn SAIDA.
== END 2024-09-14 12:40 | disposition home or self-care (01) | DRG 322 ==
LOC: ANHED 21:00 → ANHICU 22:37
PROVIDERS: Internal Medicine; Admitting Provider Internal Medicine Interventional Cardiology; Emergency Provider Emergency Medicine; PCP Family Medicine; Visit Provider Internal Medicine Interventional Cardiology
PROC: 4A023N7 Measurement of Cardiac Sampling and Pressure, Left Heart, Percutaneous Approach (ICD-10-PCS; CPT 93454; principal; 2024-09-12 20:50)
PROC: 4A023N7 Measurement of Cardiac Sampling and Pressure, Left Heart, Percutaneous Approach (ICD-10-PCS; 2024-09-12 20:50)
PROC: 4A023N7 Measurement of Cardiac Sampling and Pressure, Left Heart, Percutaneous Approach (ICD-10-PCS; 2024-09-12 20:50)
DX: I21.19 ST elevation (STEMI) myocardial infarction involving other coronary artery of inferior wall (principal); M87.9 Osteonecrosis, unspecified; I25.10 Atherosclerotic heart disease of native coronary artery without angina pectoris; E03.9 Hypothyroidism, unspecified; E78.5 Hyperlipidemia, unspecified; E11.42 Type 2 diabetes mellitus with diabetic polyneuropathy; K22.2 Esophageal obstruction; K21.9 Gastro-esophageal reflux disease without esophagitis; H81.09 Meniere's disease, unspecified ear; M16.0 Bilateral primary osteoarthritis of hip; I25.2 Old myocardial infarction; Z95.5 Presence of coronary angioplasty implant and graft; Z79.82 Long term (current) use of aspirin
CPT/HCPCS: 36415; 71045; 80048; 80053; 80061; 82948; 83735; 84100; 84484; 85025; 85610; 85730; 86850; 86900; 86901; 87641; 92978; 93005; 93306; 93454; 96374; 96375; 99291; A9270; C1725; C1753; C1769; C1874; C1887; C1894; C9606; J1644; J2003; J2250; J2270; J2305; J2371; J3010; J7030; J7040

== ENCOUNTER 2024-11-09 14:30 | Outpatient (RCR) | payer MEDICARE, SELFPAY | END 2024-12-26 10:41 | disposition home or self-care (01) | LOC: ANHDMC 14:30 | PROVIDERS: PCP Family Medicine; Visit Provider Family Medicine | DX: E13.9 Other specified diabetes mellitus without complications (principal); Z71.89 Other specified counseling | CPT/HCPCS: G0108; G0109 ==

== ENCOUNTER 2024-11-14 07:15 | Outpatient (RCR) | payer MEDICARE, SELFPAY ==
[2024-10-07 08:59] VITALS: PULSE 68
== END 2024-12-28 07:35 | disposition home or self-care (01) ==
LOC: ANHCPREHAB 07:15
PROVIDERS: PCP Family Medicine; Visit Provider Specialist
DX: Z95.5 Presence of coronary angioplasty implant and graft (principal)
CPT/HCPCS: 93798; G0109

== ENCOUNTER 2025-03-01 08:03 | Outpatient (CLI) | payer MEDICARE, SELFPAY ==
--- NOTE | ~2025-03-01 | XR_ITS ---
XR abdomen/kub 1V 03/01/2025 08:18 Indication: Renal stone Procedure: KUB Comparison: Comparison to multiple prior studies sequentially, with oldest reviewed study dated 01/2022. Findings: Stable bilateral renal stones. Largest in the lower pole of the left kidney. Bowel gas mishel sam nonobstructive. No acute osseous abnormality. Impression: 1: Bilateral nephrolithiasis without significant change. Reviewed, dictated and finalized at location A. Impression: 1: Bilateral nephrolithiasis without significant change.
--- OUTSIDE RECORDS SUMMARY | 2025-03-01 08:06 | XMS_ITS | Continuity of Care Document ---
Author Organization [facility] Address [address] [place] [address] Phone Care Team Providers Care Pecan Gatherer Name Role Phone Adalid Moser DO Unavailable Unavailable Advance Directives Directive Yes / No Effective Date File Name No Information Encounters Encounter Description Practice Location Reason(s) For Visit Diagnoses Date Provider Providers Copied on Encounter [facility], [address], [place], [place], [id number], [place] tel:[phone] [facility] No Information [facility] Florez. [address] [place], [address], [place]. tel: [phone] Family History Family Member Type Diagnosis Age At Onset No Information Payers Payer name Insurance type Covered libertarian ID Authoriza tion(s) No Information Social History [...]
--- OUTSIDE RECORDS SUMMARY | 2025-03-01 08:06 | XMS_ITS | Encounter Summary ---
Author Organization [facility] Address 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
--- OUTSIDE RECORDS SUMMARY | 2025-03-01 08:07 | XMS_ITS | Encounter Summary ---
Author Organization [facility] Address 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 History: [...] 18:36 Procedure Note Provider, Historical - 11/07/2007 [place] [address] [place], [place] [address] Admit Date: 11/07/2007 ERIC FREEMAN Sex: M Admit Prov: ER, AUTHORIZED P Date: 1960 Primary Care Prov: ERIC DAI CMRN: [id number] [facility] [id number] IM[facility]ING SERVICES Ordering Prov: N/A Interpretation Exam: [...] PM CDT Narrative 11/07/2007 5:31 PM CDT [address] [address] Admit Date: 11/07/2007 QUANG ERIC Merary Sex: M Admit Prov: ER, AUTHORIZED P Date: 1960 Primary Care Prov: MARCOSJUICEERIC NUNO CMRN: [id number] Room: [facility] SSN: [id number] IMAGING SERVICES Ordering Prov: N/A Accession Number: [id number] Interpretation Exam: Cervical spine, 5 views. History: [...] 17:31 Procedure Note Provider, Historical - 11/07/[address] [address] Admit Date: 11/07/2007 ERIC FREEMAN Sex: M Admit Prov: ER, AUTHORIZED P Date: 1960 Primary Care Prov: ERIC DAI CMRN: [id number] [facility]: [id number] IMAGING SERVICES Ordering Prov: N/A Interpretation Exam: [...] CDT) GLUCOSE 135(H) 65 - 99 mg/dL [facility] SODIUM 135 135 - 145 mmol/L [facility] CALCIUM 9.0 8.4 - 10.2 mg/dL [facility] CO2 26 22 - 30 mmol/L [facility] CREATININE 0.73 0.67 - 1.17 mg/dL [facility] POTASSIUM 4.6 3.5 - 4.9 mmol/L [facility] Comment: Moderate hemolysis present. Can cause significant falsely elevated result. Clinical judgement necessary. Redraw if indicated. BUN 16 6 - 20 mg/dL [facility] CHLORIDE 98 96 - 108 mmol/L [facility] GFR, >60 >=60 mL/min/1. 7 sq meter [facility] GFR >60 >=60 mL/min/1. 7 sq meter [facility] Comment: Estimated GFR rate interpretative information for both Americans and non- Americans is available on the [facility] Intranet at: [email or web address] Select: Lab Policies and Procedures Select: Reference Ranges - GFR Blood specimen (specimen) 11/07/2007 4:47 PM CDT 11/07/2007 5:04 PM CDT Guru Aragon Jr., MD CHEMISTRY ORDERABLES Edite d [facility] [address] [place] [address] * (ABNORMAL) C-REACTIVE PROTEIN (11/07/2007 4:47 PM CDT) [facility] CRP 6.3(H) 0.0 - 0.8 mg/dL [facility] Blood specimen (specimen) 11/07/2007 4:47 PM CDT 11/07/2007 5:04 PM CDT Guru Aragon Jr., MD CHEMISTRY ORDERABLES Final Result Performing Organization Address [facility]/ZIP Co de Phone Number [facility] [address] [place], [place] [address] * CBC WITH DIFFERENTIAL (11/07/2007 4:47 PM CDT) [facility] RBC 4.99 4.50 - 5.40 M/uL [facility] MCHC 33.0 31.5 - 35.5 % [facility] MCV 89.2 82.0 - 99.0 fL [facility] PLATELETS 256 140 - 350 K/uL [facility] HEMOGLOBIN 14.7 13.6 - 16.5 g/dL [facility] RDW 13.6 11.5 - 14.5 % [facility] WBC 6.5 4.0 - 9.8 K/uL [facility] MCH 29.5 27.2 - 32.6 pg [facility] MPV 10.5 9.3 - 12.4 fL [facility] HEMATOCRIT 44.5 40.0 - 48.0 % [facility] RDW-STDEV 44.2 37.1 - 48.7 fL [facility] NEUTROPHILS 63 45 - 70 % [facility] BASOPHILS 0 0 - 2 % [facility] BASOPHILS ABSOLUTE 0.01 0.00 - 0.20 K/uL [facility] MONOCYTES 9 3 - 13 % [facility] MONOCYTE ABSOLUTE 0.59 0.10 - 1.30 K/uL [facility] LYMPHOCYTES 26 16 - 45 % [facility] NEUTROPHIL ABSOLUTE 4.13 1.90 - 7.00 K/uL [facility] EOSINOPHILS 2 0 - 7 % [facility] EOSINOPHIL ABSOLUTE 0.12 0.00 - 0.70 K/uL [facility] LYMPHOCYTE ABSOLUTE 1.69 0.70 - 4.50 K/uL [facility] Blood specimen (specimen) 11/07/2007 4:47 PM CDT 11/07/2007 5:04 PM CDT Guru Aragon Jr., MD HEMATOLOGY ORDERABLES Edit ed INTERFACE SYSTEM Refer to clinic/hospital department [facility] [address] [place] [address] documented in this encounter Visit Diagnoses Not on filedocumented in this encounter
--- OUTSIDE RECORDS SUMMARY | 2025-03-01 08:07 | XMS_ITS | Encounter Summary ---
Author Organization [facility] Address 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
--- OUTSIDE RECORDS SUMMARY | 2025-03-01 08:07 | XMS_ITS | Clinical Summary ---
Author Organization [facility] Address [address] 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
--- OUTSIDE RECORDS SUMMARY | 2025-03-01 08:07 | XMS_ITS | Encounter Summary ---
Author Organization [email or web address] Address [address] [place] [address] Care Team Providers Care Gaming Cashier Name Role Phone Unavailable Primary Care Provider Unavailabl e Encounter Details Date Type Department Care Team (Late st Contact Info) Description 02/16/2006 Outpatient Historical [facility] (Adt Cardiology-[facility]) [address] 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
--- OUTSIDE RECORDS SUMMARY | 2025-03-01 08:07 | XMS_ITS | Clinical Summary ---
Author Organization [facility] [address] Address [address] [place] [address] Care Team Providers Care Etiquette Teacher Name Role Phone Eric Riley MD Primary Care Provider [phone] Allergies Active Allergy Reactions Criticality Noted Date Comments Lisinopril Cough,Nausea only Low 11/26/2017 Quinine Simvastatin Medications omeprazole 20 mg tablet,delayed release (DR/EC) 20 mg. 0 1 Active aspirin 81 mg tablet Take 1 tablet (81 mg total) by mouth daily Active metFORMIN (GLUCOPHAGE) 500 mg tablet Take 2 tablets (1,000 mg total) by mouth daily with breakfast Active atorvastatin (LIPITOR) 40 mg tablet TAKE 1 TABLET DAILY 90 tablet 3 2 Active Additional Information Patient taking differently: 80 mg oral Daily, Reported on 01/06/2025 levothyroxine (SYNTHROID) 75 mcg tablet Take 1 tablet (75 mcg total) by mouth daily 3 Active Brilinta 90 mg tablet Take 1 tablet (90 mg total) by mouth 2 (two) times a day 5 Active metoprolol tartrate (LOPRESSOR) 25 mg immediate release tablet Take 1 tablet (25 mg total) by mouth every 12 (twelve) hours 5 Active insulin degludec (TRESIBA) 100 unit/mL (3 mL) pen for injection Inject 0.1 mL (10 Units total) under the skin daily 5 Active nitroglycerin (NITROSTAT) 0.[address] 1 tablet (0.4 mg total) under the tongue every 5 (five) minutes as needed for chest pain 30 tablet 2 5 Active Active Problems Problem Noted Date Diagnosed Date Coronary artery disease invo lving [place] coronary artery of [place] heart without angina pectoris 10/29/[address] elevation myocardial infarction (S PÉREZ) 10/29/2017 Hyperlipidemia due to type 2 diabetes mellitus 0 10/29/2017 Presence of stent in coronary artery 10/29/2017 Sensorineural hearing loss (SNHL) of both ears 0 10/25/2015 Presbycusis 10/23/2015 Ear ringing 10/18/2015 Hypothyroidism 12/03/2013 Overview (10/22/2016): HYPOTHYROIDISM NOS Type 2 diabetes mellitus 12/03/2013 Overview (10/22/2016): DMII WO CMP NT ST UNCNTR Encounters Date Type Department Care Team Description 01/06/2025 9:45 AM CDT Office Visit [facility] Cardiology at [address] [place] [address] Eric Esposito MD Presence of stent in coronary artery (Primary Dx); Coronary artery disease involving ewiia[place]ayp coronary artery of ewi[place]ay[place] heart without angina pectoris from Last 3 Months Surgical History Surgery Date Site/Laterality Comments SPINE SURGERY 12/19/2007 - 01/17/2008 Medical History Medical History Date Comments Hx Other Medical prediabates Hx Other Medical esophageal stri cture s/p dilation Gastroesophageal reflux disease GERD Hyperlipidemia Hyperlipidemia Arthritis Clotting disorder April Diabetes mellitus (HCC) Heart disease 10/12/17 [...] Relation Name Status Comments Father Haider Freeman Alive Mother Teri Freeman Alive Other 1 Other 2 Social History Tobacco Use Types Packs/Day Years Used Date Smoking Tobacco: Never Smokeless Tobacco: Never Tobacco Cessation:Counseling Given: Not Answered Alcohol Use Standard Drinks/Week Comments No 0 (1 standard drink = 0.6 oz pur e alcohol) Sex and Gender Information Value Date Recorded Sex Assigned at Not on file Legal Sex Male 1:06 AM MIME ARTIST Gender Identity Male 07/16/2021 10:51 AM MIME ARTIST Sexual Orientation Not on file Obstetrics History Last Filed Vital Signs Vital Sign Reading Time Taken Comments Blood Pressure 122/70 01/06/2025 9:36 AM CDT Pulse 73 01/06/2025 9:36 AM CDT Temperature - - Respiratory Rate 16 12/29/2019 11:09 AM CDT Oxygen Saturation 95% 01/06/2025 9:36 AM CDT Inhaled Oxygen Concentration - - Weight 70.3 kg (155 lb) 01/06/2025 9:36 AM CDT Height 177.8 cm (5' 10) 01/06/2025 9:36 AM CDT Body Mass Index 22.24 01/06/2025 9:36 AM CDT Plan of Treatment Health Maintenance [...] Well Visit 65+ 2023 Influenza Vaccine (#1) 2025 05/20/2018 Lipid Panel 09/12/2025 09/12/2024, 08/0 12/2023, 12/24/2022, Additional history exists DTaP/Tdap/Td Vaccine (2 - Td or Tdap) 12/19/2026 12/19/2016 Procedures Procedure Name Priority Date/Time Associated Diagnosis Comments LIPID PANEL Routine 09/12/2024 8:44 PM MIME ARTIST from Last 3 Months or Most Recently Relevant to Health Maintenance Results * (ABNORMAL) Lipid panel (09/12/2024 8:44 PM MIME ARTIST) SCRIBED Cholesterol, Total 166 0 - 200 EXTERNAL LAB SCRIBED HDL 46 40 - 100 EXTERNAL LAB SCRIBED LDL 81 0 - 100 EXTERNAL LAB SCRIBED Triglycerides 213(A) 0 - 150 EXTERNAL LAB Blood 09/12/2024 8:44 PM MIME ARTIST us Historical Provider LAB BLOOD ORDERABLES Sommer l Result EXTERNAL LAB from Last 3 Months or Most Recently Relevant to Health Maintenance [place] [address] [facility] MEDICARE [employer] Care Teams Etiquette Teacher Relationship Specialty Start Date End Date Eric Riley MD PCP - General 08/29/10
--- OUTSIDE RECORDS SUMMARY | 2025-03-01 08:07 | XMS_ITS | Encounter Summary ---
Author Organization [facility] Address 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 Gender Identity Not on file Sexual Orientation Not on file documented as of this encounter Plan of Treatment Not on file documented as of this encounter Procedures Procedure Name Priority Date/Time Associated Diagnosis Comments XR CERVICAL SPINE 1 VW Routine 09/16/2007 3:20 PM SERVICE CENTER TECHNICIAN documented in this encounter Results * XR CERVICAL SPINE 1 VW (09/16/2007 3:20 PM SERVICE CENTER TECHNICIAN) Anatomical Region Laterality Modality Spine Other 09/16/2007 3:20 PM SERVICE CENTER TECHNICIAN Narrative 09/17/2007 5:07 PM SERVICE CENTER TECHNICIAN [address] [address] Admit Date: 09/16/2007 ERIC FREEMAN Sex: M Admit Prov: NICK BLANK Date: 1960 Primary Care Prov: ERIC DAI CMRN: [id number] Room: [facility] SSN: [id number] IMAGING SERVICES Ordering Prov: N/A Accession Number: [id number] Interpretation CROSSTABLE LATERAL RADIOGRAPH, CERVICAL SPINE, 09/16/2007 [...] SJ Procedure Note Provider, Historical - 09/17/2007 [facility] [address] [place], [place] [address] Admit Date: 09/16/2007 QUANG ERIC Sex: M Admit Prov: NICK BLANK Date: 1960 Primary Care Prov: ERIC DAI CMRN: [id number] [id number] [facility] Ordering Prov: N/A Interpretation CROSSTABLE [...]
--- OUTSIDE RECORDS SUMMARY | 2025-03-01 08:07 | XMS_ITS | Encounter Summary ---
Author Organization [facility] Address [address] [place] [address] Care Team Providers Care Product Operations Associate Name Role Phone Eric Riley MD Primary Care Provider [phone] Encounter Details Date Type Department Care Team (Late st Contact Info) Description 10/15/2017 Orders Only [facility] Health Information Management [address] [place] [address] Scanning, Provider Social History Tobacco Use Types Packs/Day Years Used Date Smoking Tobacco: Never Assessed Alcohol Use Standard Drinks/Week Comments No 0 (1 standard drink = 0.6 oz pur e alcohol) Sex and Gender Information Value Date Recorded Sex Assigned at Not on file Legal Sex Male 1:06 AM BIZTALK SOFTWARE DEVELOPER Gender Identity Male 07/16/2021 10:51 AM BIZTALK SOFTWARE DEVELOPER Sexual Orientation Not on file documented as of this encounter Plan of Treatment Not on file documented as of this encounter Procedures Procedure Name Priority Date/Time Associated Diagnosis Comments SCAN - RADIOLOGY/IMAGING 10/15/2017 1:21 AM CDT documented in this encounter Results * SCAN - RADIOLOGY/IMAGING (10/15/2017 1:21 AM CDT) Anatomical Region Laterality Modality Other us Provider Scanning Final Result documented in this encounter Visit Diagnoses Not on filedocumented in this encounter Care Teams Product Operations Associate Relationship Specialty Start Date End Date Eric Riley MD PCP - General 08/29/10 documented as of this encounter
== END 2025-03-01 08:04 | disposition home or self-care (01) ==
PROVIDERS: PCP Family Medicine; Visit Provider Nurse Practitioner Family
DX: N20.0 Calculus of kidney (principal); Z98.890 Other specified postprocedural states
CPT/HCPCS: 74018

== ENCOUNTER 2025-03-16 19:01 | Inpatient (IN) | payer MEDICARE, SELFPAY ==
--- OUTSIDE RECORDS SUMMARY | 2002-11-24 05:45 | XMS_ITS | Continuity of Care Document ---
Author Organization [facility] Address [address] [place] [address] Phone Care Team Providers Care Legal Records Clerk Name Role Phone Adalid Moser DO Unavailable Unavailable Advance Directives Directive Yes / No Effective Date File Name No Information Encounters Encounter Description Practice Location Reason(s) For Visit Diagnoses Date Provider Providers Copied on Encounter [facility], [address], [place], [place], [id number], [place] tel:[phone] [facility] No Information Ehsan Florez. [address] [place], [address], [place]. tel: [phone] Family History Family Member Type Diagnosis Age At Onset No Information Payers Payer name Insurance type Covered green party ID Authoriza tion(s) No Information Social History Type Description Quantity Date Captured Comments Sex Male Smoking Status No Information Chief Complaint And Reason For Visit No Information Reason For Referral Reason For Referral No Information History Of Present Illness Encounter Date Complaint History Of Prese nt Illness No Information Functional Status Date Functional Assessmen t No Information Instructions Date Instruction Additional Infor mation No Information Assessments Type Assessment Date No Information Patient Care Teams Name Effective Dates (start - stop) Status Members No Information
--- OUTSIDE RECORDS SUMMARY | 2002-11-24 05:45 | XMS_ITS | Continuity of Care Document ---
Author Organization [facility] Address [address] [place] [address] Phone Care Team Providers Care Union Organizer Name Role Phone Adalid Moser DO Unavailable Unavailable Advance Directives Directive Yes / No Effective Date File Name No Information Encounters Encounter Description Practice Location Reason(s) For Visit Diagnoses Date Provider Providers Copied on Encounter [facility], [address], [place], [place], [id number], [place] tel:[phone] [facility] No Information Ehsan Florez. [address] [place], [address], [place]. tel: [phone] Family History Family Member Type Diagnosis Age At Onset No Information Payers Payer name Insurance type Covered republican ID Authoriza tion(s) No Information Social History [...]
--- NOTE | ~2025-03-16 | NM_ITS ---
EXAMINATION: NM stress w perf spect multi DATE: 03/17/2025 15:39 INDICATION: Chest pain TECHNIQUE: Rest images were obtained following intravenous administration of 10.4 mCi Tc99m tetrofosmin (Myoview). The patient performed an exercise activity. At peak exercise, 32.7 mCi Tc99m tetrofosmin (Myoview) was administered intravenously, and stress images were obtained. Data was reconstructed into short axis and horizontal and vertical long axis SPECT images. Gated SPECT images were also obtained. COMPARISON: None. FINDINGS: There is normal left ventricular perfusion without definite evidence of reversible or fixed perfusion abnormality to suggest ischemia or infarction. There is normal left ventricular chamber size, wall motion and ejection fraction. Left ventricular ejection fraction measures 68%. IMPRESSION: 1. Normal myocardial perfusion at rest and during stress. 2. Left ventricular ejection fraction measuring 68%. Reviewed, dictated and finalized at location A.
--- NOTE | ~2025-03-16 | XR_ITS ---
EXAMINATION: XR chest 1V portable DATE: 03/16/2025 19:23 INDICATION: Chest pain TECHNIQUE: frontal view of the chest was obtained. COMPARISON: Chest radiograph dated 09/12/2024 FINDINGS: Artifactual asymmetric increased density of the left side of the image relative to the right. No focal airspace opacities, pulmonary edema, pleural effusion or pneumothorax. The cardiomediastinal silhouette is normal. IMPRESSION: 1. No acute cardiopulmonary disease. Reviewed, dictated and finalized at location A.
--- OUTSIDE RECORDS SUMMARY | 2025-03-16 19:03 | XMS_ITS | Clinical Summary ---
Author Organization [facility] [address] Address [address] [place] [address] Care Team Providers Care Field Account Director Name Role Phone Eric Riley MD Primary Care Provider [phone] Allergies Active Allergy Reactions Criticality Noted Date [...] Diagnosed Date Coronary artery disease invo lving [place] coronary artery of [place] heart without angina pectoris 10/29/2017 History of [...] Encounters Date Type Department Care Team Description 03/16/2025 Telephone [facility] Card[facility] [address] [facility] [address] [place] [address] Eric Esposito MD 01/06/2025 9:45 AM CDT Office Visit [facility] Cardiology at [address] [place] [address] Eric Esposito MD Presence of stent in coronary artery (Primary Dx); Coronary artery disease involving [place] coronary artery of [place] heart without angina pectoris from Last 3 [...] Comments Father Haider Freeman Alive Mother Teri Govreau Alive Other 1 Other 2 Social History Tobacco Use Types Packs/Day Years Used Date Smoking Tobacco: Never Smokeless Tobacco: Never Tobacco Cessation:Counseling Given: Not Answered Alcohol Use Standard Drinks/Week Comments No 0 (1 standard drink = 0.6 oz pur e alcohol) Sex and Gender Information Value Date Recorded Sex Assigned at Not on file Legal Sex Male 1:06 AM OPERATIONAL INTELLIGENCE ANALYST Gender Identity Male 07/16/2021 10:51 AM OPERATIONAL INTELLIGENCE ANALYST Sexual Orientation Not on file Obstetrics History [...] Comments LIPID PANEL Routine 09/12/2024 8:44 PM OPERATIONAL INTELLIGENCE ANALYST from Last 3 Months or Most Recently Relevant to Health Maintenance Results * (ABNORMAL) Lipid panel (09/12/2024 8:44 PM OPERATIONAL INTELLIGENCE ANALYST) SCRIBED Cholesterol, Total 166 0 - 200 EXTERNAL LAB SCRIBED HDL 46 40 - 100 EXTERNAL LAB SCRIBED LDL 81 0 - 100 EXTERNAL LAB SCRIBED Triglycerides 213(A) 0 - 150 EXTERNAL LAB Blood 09/12/2024 8:44 PM OPERATIONAL INTELLIGENCE ANALYST us Historical Provider LAB BLOOD ORDERABLES Sommer medina Result EXTERNAL LAB from Last 3 Months or Most Recently Relevant to Health Maintenance Insurance MEDICARE [facility] Address: [address] [address] [place] [address] [facility] MEDICARE [facility] Care Teams Field Account Director Relationship Specialty Start Date End Date Eric Riley MD PCP - General 08/29/10
--- OUTSIDE RECORDS SUMMARY | 2025-03-16 19:03 | XMS_ITS | Encounter Summary ---
Author Organization [employer] Address [address] [place] [address] Care Team Providers Care Automotive Parts Interpreter Name Role Phone Unavailable Primary Care Provider Unavailabl e Encounter Details Date Type Department Care Team (Late st Contact Info) Description 02/16/2006 Outpatient Historical [facility] [place] Support [facility] (Adt Cardiology-[facility]) [address] [place] [address] Tyson Davidson MD NO ADDRESS ON FILE Social History Tobacco Use Types Packs/Day Years Used Date Smoking Tobacco: Never Assessed Sex and Gender Information Value Date Recorded Sex Assigned at Not on file Legal Sex Male 4:05 AM RECREATION AIDE Gender Identity Not on file Sexual Orientation Not on file documented as of this encounter Plan of Treatment Not on file documented as of this encounter Visit Diagnoses Not on filedocumented in this encounter
--- OUTSIDE RECORDS SUMMARY | 2025-03-16 19:03 | XMS_ITS | Encounter Summary ---
Author Organization [employer] Address [address] [place] [address] Care Team Providers Care Reo Asset Manager Name Role Phone Unavailable Primary Care Provider Unavailabl e Encounter Details Date Type Department Care Team (Late st Contact Info) Description 11/07/2007 Emergency [facility] Er, Authorized P NO ADDRESS ON FILE Guru Aragon Jr., MD [facility] [place] [address] Social History Tobacco Use Types Packs/Day Years Used Date Smoking Tobacco: Never Assessed Sex and Gender Information Value Date Recorded Sex Assigned at Not on file Legal Sex Male 4:05 AM COLD REDUCTION ROLLER Gender Identity Not on file Sexual Orientation [...] PM CDT Narrative 11/07/2007 6:36 PM CDT [address] [address] [place], [place] [address] Admit Date: 11/07/2007 ERIC FREEMAN Sex: M Admit Prov: ER, AUTHORIZED P Date: 1960 Primary Care Prov: ERIC DAI CMRN: [id number] [id number] [facility] Ordering Prov: N/A Accession Number: [id number] Interpretation Exam: CT soft tissue neck. History: [...] 18:36 Procedure Note Provider, Historical - 11/07/2007 [address] [place], [place] [address] Admit Date: 11/07/2007 ERIC FREEMAN Sex: M Admit Prov: ER, AUTHORIZED P Date: 1960 Primary Care Prov: ERIC DAI CMRN: [id number] [facility] [id number] IM[facility]ING SERVICES Ordering Prov: N/A Interpretation Exam: [...] PM CDT Narrative 11/07/2007 5:31 PM CDT [address] [address] Admit Date: 11/07/2007 QUANG ERIC Merary Sex: M Admit Prov: ER, AUTHORIZED P Date: 1960 Primary Care Prov: MARCOSJUICEERIC NUNO CMRN: [id number] Room: [facility] SSN: [id number] IMAGING SERVICES Ordering Prov: N/A Accession Number: [id number] Interpretation Exam: Cervical spine, 5 views. History: [...] 17:31 Procedure Note Provider, Historical - 11/07/[address] [address] Admit Date: 11/07/2007 ERIC FREEMAN Sex: M Admit Prov: ER, AUTHORIZED P Date: 1960 Primary Care Prov: ERIC DAI CMRN: [id number] Room: [facility] SSN: [id number] IMAGING SERVICES Ordering Prov: N/A Interpretation Exam: [...] CDT) GLUCOSE 135(H) 65 - 99 mg/dL [facility] SODIUM 135 135 - 145 mmol/L [facility] CALCIUM 9.0 8.4 - 10.2 mg/dL [facility] CO2 26 22 - 30 mmol/L [facility] CREATININE 0.73 0.67 - 1.17 mg/dL [facility] POTASSIUM 4.6 3.5 - 4.9 mmol/L [facility] Comment: Moderate hemolysis present. Can cause significant falsely elevated result. Clinical judgement necessary. Redraw if indicated. BUN 16 6 - 20 mg/dL [facility] CHLORIDE 98 96 - 108 mmol/L [facility] GFR, >60 >=60 mL/min/1. 7 sq meter [facility] GFR >60 >=60 mL/min/1. 7 sq meter [facility] Comment: Estimated GFR rate interpretative information for both Americans and non- Americans is available on the [facility] Intranet at: [email or web address] Select: Lab Policies and Procedures Select: Reference Ranges - GFR Blood specimen (specimen) 11/07/2007 4:47 PM CDT 11/07/2007 5:04 PM CDT Guru Aragon Jr., MD CHEMISTRY ORDERABLES Edite d [facility] [address] [place] [address] * (ABNORMAL) C-REACTIVE PROTEIN (11/07/2007 4:47 PM CDT) [facility] CRP 6.3(H) 0.0 - 0.8 mg/dL [facility] Blood specimen (specimen) 11/07/2007 4:47 PM CDT 11/07/2007 5:04 PM CDT Guru Aragon Jr., MD CHEMISTRY ORDERABLES Final Result Performing Organization Address [facility]/ZIP Co de Phone Number [facility] [address] [place], [place] [address] * CBC WITH DIFFERENTIAL (11/07/2007 4:47 PM CDT) [facility] RBC 4.99 4.50 - 5.40 M/uL [facility] MCHC 33.0 31.5 - 35.5 % [facility] MCV 89.2 82.0 - 99.0 fL [facility] PLATELETS 256 140 - 350 K/uL [facility] HEMOGLOBIN 14.7 13.6 - 16.5 g/dL [facility] RDW 13.6 11.5 - 14.5 % [facility] WBC 6.5 4.0 - 9.8 K/uL [facility] MCH 29.5 27.2 - 32.6 pg [facility] MPV 10.5 9.3 - 12.4 fL [facility] HEMATOCRIT 44.5 40.0 - 48.0 % [facility] RDW-STDEV 44.2 37.1 - 48.7 fL [facility] NEUTROPHILS 63 45 - 70 % [facility] BASOPHILS 0 0 - 2 % [facility] BASOPHILS ABSOLUTE 0.01 0.00 - 0.20 K/uL [facility] MONOCYTES 9 3 - 13 % [facility] MONOCYTE ABSOLUTE 0.59 0.10 - 1.30 K/uL [facility] LYMPHOCYTES 26 16 - 45 % [facility] NEUTROPHIL ABSOLUTE 4.13 1.90 - 7.00 K/uL [facility] EOSINOPHILS 2 0 - 7 % [facility] EOSINOPHIL ABSOLUTE 0.12 0.00 - 0.70 K/uL [facility] LYMPHOCYTE ABSOLUTE 1.69 0.70 - 4.50 K/uL [facility] Blood specimen (specimen) 11/07/2007 4:47 PM CDT 11/07/2007 5:04 PM CDT Guru Aragon Jr., MD HEMATOLOGY ORDERABLES Edit ed INTERFACE SYSTEM Refer to clinic/hospital department [facility] [address] [place] [address] documented in this encounter Visit Diagnoses Not on filedocumented in this encounter
--- OUTSIDE RECORDS SUMMARY | 2025-03-16 19:03 | XMS_ITS | Encounter Summary ---
Author Organization [employer] Address [address] [place] [address] Care Team Providers Care Physical Chemistry Teacher Name Role Phone Unavailable Primary Care Provider Unavailabl e Encounter Details Date Type Department Care Team (Latest Contact Info) Description 04/20/2006 Outpatient Historical [facility] Nick Bethea MD [address] [place] [address]x0 (Work) Follow-Up Examination, Following Other Surgery (Primary Dx) Social History Tobacco Use Types Packs/Day Years Used Date Smoking Tobacco: Never Assessed Sex and Gender Information Value Date Recorded Sex Assigned at Not on file Legal Sex Male 4:05 AM LEASE EXAMINER Gender Identity Not on file Sexual Orientation Not on file documented as of this encounter Plan of Treatment Not on file documented as of this encounter Visit Diagnoses Diagnosis Follow-up examination, following other surgery- Primary documented in this encounter
--- OUTSIDE RECORDS SUMMARY | 2025-03-16 19:03 | XMS_ITS | Encounter Summary ---
Author Organization [facility] Address [address] [place] [address] Care Team Providers Care Crusher Tender Name Role Phone Eric Riley MD Primary Care Provider [phone] Encounter Details Date Type Department Care Team (Late st Contact Info) Description 03/16/2025 Telephone [facility] Cardiology [address] [place] [phone] Eric Esposito MD [address] [facility] [address] [place] [address] Social History Tobacco Use Types Packs/Day Years Used Date Smoking Tobacco: Never Smokeless Tobacco: Never Alcohol Use Standard Drinks/Week Comments No 0 (1 standard drink = 0.6 oz pur e alcohol) Sex and Gender Information Value Date Recorded Sex Assigned at Not on file Legal Sex Male 1:06 AM GEAR GENERATOR SET UP OPERATOR Gender Identity Male 07/16/2021 10:51 AM GEAR GENERATOR SET UP OPERATOR Sexual Orientation Not on file documented as of this encounter Miscellaneous Notes * Telephone Encounter - Cecy Aleman - 03/16/2025 4:23 PM CDT Pt spouse states pt has had two heart attacks. The past week he has been feeling some type of sensation in his jaw causing it to hurt. Also reports pt feeling fatigue. States walking is hard and pt cannot walk long distances. Requesting call back to discuss. Contact: documented in this encounter Plan of Treatment Not on file documented as of this encounter Visit Diagnoses Not on filedocumented in this encounter Care Teams Crusher Tender Relationship Specialty Start Date End Date Eric Riley MD PCP - General 08/29/10 documented as of this encounter
--- OUTSIDE RECORDS SUMMARY | 2025-03-16 19:03 | XMS_ITS | Encounter Summary ---
Author Organization [facility] Address [address] [place] [address] Care Team Providers Care Brim Shaper Name Role Phone Unavailable Primary Care Provider Unavailivan e Encounter Details Date Type Department Care Team (Latest Contact Info) Description 09/16/2007 Outpatient Historical [facility] Nick Balnk MD [address] [place] [address]x0 (Work) Displacement of Cervical Intervertebral Disc without Myelopathy Social History Tobacco Use Types Packs/Day Years Used Date Smoking Tobacco: Never Assessed Sex and Gender Information Value Date Recorded Sex Assigned at Not on file Legal Sex Male 4:05 AM VIDEO MACHINES MECHANIC Gender Identity Not on file Sexual Orientation Not on file documented as of this encounter Plan of Treatment Not on file documented as of this encounter Procedures Procedure Name Priority Date/Time Associated Diagnosis Comments XR CERVICAL SPINE 1 VW Routine 09/16/2007 3:20 PM VIDEO MACHINES MECHANIC documented in this encounter Results * XR CERVICAL SPINE 1 VW (09/16/2007 3:20 PM VIDEO MACHINES MECHANIC) Anatomical Region Laterality Modality Spine Other 09/16/2007 3:20 PM VIDEO MACHINES MECHANIC Narrative 09/17/2007 5:07 PM VIDEO MACHINES MECHANIC [address] [address] Admit Date: 09/16/2007 ERIC FREEMAN Sex: M Admit Prov: NICK BLANK Date: 1960 Primary Care Prov: ERIC DAI CMRN: [id number] Room: [facility] SSN: [id number] IMAGING SERVICES Ordering Prov: N/A Accession Number: [id number] Interpretation CROSSTABLE LATERAL RADIOGRAPH, CERVICAL SPINE, 09/16/2007 [...] SJ Procedure Note Provider, Historical - 09/17/2007 [facility] [address] [place], [place] [address] Admit Date: 09/16/2007 QUANG ERIC Sex: M Admit Prov: NICK BLANK Date: 1960 Primary Care Prov: ERIC DAI CMRN: [id number] [facility] [id number] [facility] Ordering Prov: N/A Interpretation CROSSTABLE [...]
--- OUTSIDE RECORDS SUMMARY | 2025-03-16 19:03 | XMS_ITS | Encounter Summary ---
Author Organization [employer] Address [address] [place] [address] Care Team Providers Care Health Information Internship Name Role Phone Unavailable Primary Care Provider Unavailabl e Encounter Details Date Type Department Care Team (Latest Contact Info) Description 02/26/2006 Outpatient Historical [facility] Nick Bethea MD [address] [address] (Work) Displacement of Cervical Intervertebral Disc without Myelopathy (Primary Dx) Social History Tobacco Use Types Packs/Day Years Used Date Smoking Tobacco: Never Assessed Sex and Gender Information Value Date Recorded Sex Assigned at Not on file Legal Sex Male 4:05 AM YEAST CAKE CUTTER Gender Identity Not on file Sexual Orientation [...]
--- OUTSIDE RECORDS SUMMARY | 2025-03-16 19:03 | XMS_ITS | Clinical Summary ---
Author Organization [facility] Address [address] Ortiz: Epic Prelude ADT [place] [address] Care Team Providers Care Web Site Admin Name Role Phone Unavailable Primary Care Provider Unavailabl e Social History Tobacco Use Types Packs/Day Years Used Date Smoking Tobacco: Never Assessed Sex and Gender Information Value Date Recorded Sex Assigned at Not on file Legal Sex Male 4:05 AM SENIOR FINANCIAL REPORTING ANALYST Gender Identity Not on file Sexual Orientation [...]
--- OUTSIDE RECORDS SUMMARY | 2025-03-16 19:03 | XMS_ITS | Encounter Summary ---
Author Organization [facility] Healthcare Address [address] [place] [address] Care Team Providers Care Switchboard Operator Helper Name Role Phone Eric Riley MD Primary Care Provider [phone] Encounter Details Date Type Department Care Team (Late st Contact Info) Description 10/15/2017 Orders Only [facility] Health Information Management [address] [place] [address] Scanning, Provider Social History Tobacco Use Types Packs/Day Years Used Date Smoking Tobacco: Never Assessed Alcohol Use Standard Drinks/Week Comments No 0 (1 standard drink = 0.6 oz pur e alcohol) Sex and Gender Information Value Date Recorded Sex Assigned at Not on file Legal Sex Male 1:06 AM GLASS SANDER Gender Identity Male 07/16/2021 10:51 AM GLASS SANDER Sexual Orientation Not on file documented as [...] on filedocumented in this encounter Care Teams Switchboard Operator Helper Relationship Specialty Start Date End Date Eric Riley MD PCP - General 08/29/10 documented as of this encounter
[2025-03-16 19:06] VITALS: BP 123/64; PULSE 77; RESP 14; TEMP 36.6; O2SAT 98
--- NOTE | 2025-03-16 19:11 | ECG_ITS ---
Test Date: 2025-03-16 19:14:07 Measurements Intervals [place] Rate: 74 P: 53 MI: 178 QRS: 17 QRSD: 98 T: -3 QT: 379 QTc: 423 Interpretive Statements SINUS RHYTHM POSSIBLE LEFT ATRIAL ENLARGEMENT LOW QRS VOLTAGE IN PRECORDIAL LEADS INCOMPLETE RIGHT BUNDLE BRANCH BLOCK BORDERLINE ST-T WAVE ABNORMALITY- ANT/INF LEADS BASELINE ARTIFACT- I, II, III, AVR, AVL BORDERLINE ECG Compared to ECG 09/12/2024 23:10:59 NO SIGNIFICANT CHANGE Electronically Signed On 03-16-2025 20:18:27 CDT by Kenneth Townsend D.O.
[2025-03-16 19:12] VITALS: BP 123/64; PULSE 76; PULSE 81; RESP 15; TEMP 36.6; O2SAT 99
[2025-03-16] MEDS: ASPIRIN 81 MG CHEWABLE TABLET 324 MG PO (19:25)
--- OUTSIDE RECORDS SUMMARY | 2025-03-16 19:37 | XMS_ITS | Encounter Summary ---
Author Organization [employer] Address [address] [address] [place] [address] Care Team Providers Care Picking Machine Operator Helper Name Role Phone Unavailable Primary Care Provider Unavailabl e Encounter Details Date Type Department Care Team (Latest Contact Info) Description 04/20/2006 Outpatient Historical [facility] Nick Bethea MD [address] [place] [address]x0 (Work) Follow-Up Examination, Following Other Surgery (Primary Dx) Social History Tobacco Use Types Packs/Day Years Used Date Smoking Tobacco: Never Assessed Sex and Gender Information Value Date Recorded Sex Assigned at Not on file Legal Sex Male 4:05 AM TAP OUT OPERATOR Gender Identity Not on file Sexual Orientation Not on file documented as of this encounter Plan of Treatment Not on file documented as of this encounter Visit Diagnoses Diagnosis Follow-up examination, following other surgery- Primary documented in this encounter
--- OUTSIDE RECORDS SUMMARY | 2025-03-16 19:38 | XMS_ITS | Encounter Summary ---
Author Organization [email or web address] Address [address] [place] [address] Care Team Providers Care Field Scout Name Role Phone Unavailable Primary Care Provider Unavailabl e Encounter Details Date Type Department Care Team (Latest Contact Info) Description 02/26/2006 Outpatient Historical [facility] Nick Bethea MD [address] [address] (Work) Displacement of Cervical Intervertebral Disc without Myelopathy (Primary Dx) Social History Tobacco Use Types Packs/Day Years Used Date Smoking Tobacco: Never Assessed Sex and Gender Information Value Date Recorded Sex Assigned at Not on file Legal Sex Male 4:05 AM SURGERY ASSISTANT Gender Identity Not on file Sexual [...]
--- OUTSIDE RECORDS SUMMARY | 2025-03-16 19:39 | XMS_ITS | Encounter Summary ---
Author Organization [employer] Address [address] [place] [address] Care Team Providers Care Aircraft Systems Repairer Name Role Phone Unavailable Primary Care Provider Unavailabl e Encounter Details Date Type Department Care Team (Late st Contact Info) Description 02/16/2006 Outpatient Historical [facility] ([facility]iology[facility]) [address] [place] [address] Tyson Davidson MD NO ADDRESS ON FILE Social History Tobacco Use Types Packs/Day Years Used Date Smoking Tobacco: Never Assessed Sex and Gender Information Value Date Recorded Sex Assigned at Not on file Legal Sex Male 4:05 AM BUILDING ASSOCIATE Gender Identity Not on file Sexual Orientation Not on file documented as of this encounter Plan of Treatment Not on file documented as of this encounter Visit Diagnoses Not on filedocumented in this encounter
--- OUTSIDE RECORDS SUMMARY | 2025-03-16 19:40 | XMS_ITS | Clinical Summary ---
Author Organization [facility] Address [address] Ortiz: Epic Prelude ADT [place] [address] Care Team Providers Care Handbag Frames Inspector Name Role Phone Unavailable Primary Care Provider Unavailabl e Social History Tobacco Use Types Packs/Day Years Used Date Smoking Tobacco: Never Assessed Sex and Gender Information Value Date Recorded Sex Assigned at Not on file Legal Sex Male 4:05 AM PHARMACY ASSOCIATE Gender Identity Not on file Sexual [...]
--- OUTSIDE RECORDS SUMMARY | 2025-03-16 19:40 | XMS_ITS | Encounter Summary ---
Author Organization [facility] Healthcare Address [address] [place] [address] Care Team Providers Care Admissions Counselor Name Role Phone Eric Riley MD Primary Care Provider [phone] Encounter Details Date Type Department Care Team (Late st Contact Info) Description 03/16/2025 Telephone [facility] Medical Group Cardiology [address] [place] [phone] Eric Esposito MD [address] [facility] [address] [place] [address] Social History Tobacco Use Types Packs/Day Years Used Date Smoking Tobacco: Never Smokeless Tobacco: Never Alcohol Use Standard Drinks/Week Comments No 0 (1 standard drink = 0.6 oz pur e alcohol) Sex and Gender Information Value Date Recorded Sex Assigned at Not on file Legal Sex Male 1:06 AM HAND FLESHER Gender Identity Male 07/16/2021 10:51 AM HAND FLESHER Sexual Orientation Not on file documented as [...] on filedocumented in this encounter Care Teams Admissions Counselor Relationship Specialty Start Date End Date Eric Riley MD PCP - General 08/29/10 documented as of this encounter
--- OUTSIDE RECORDS SUMMARY | 2025-03-16 19:41 | XMS_ITS | Encounter Summary ---
Author Organization [facility] Address [address] [place] [address] Care Team Providers Care Jinrikisha Driver Name Role Phone Unavailable Primary Care Provider Unavailivan e Encounter Details Date Type Department Care Team (Latest Contact Info) Description 09/16/2007 Outpatient Historical [facility] Nick Blank MD [address] [place] [address]x0 (Work) Displacement of Cervical Intervertebral Disc without Myelopathy Social History Tobacco Use Types Packs/Day Years Used Date Smoking Tobacco: Never Assessed Sex and Gender Information Value Date Recorded Sex Assigned at Not on file Legal Sex Male 4:05 AM PLASTIC PRINTER Gender Identity Not on file Sexual Orientation Not on file documented as of this encounter Plan of Treatment Not on file documented as of this encounter Procedures Procedure Name Priority Date/Time Associated Diagnosis Comments XR CERVICAL SPINE 1 VW Routine 09/16/2007 3:20 PM PLASTIC PRINTER documented in this encounter Results * XR CERVICAL SPINE 1 VW (09/16/2007 3:20 PM PLASTIC PRINTER) Anatomical Region Laterality Modality Spine Other 09/16/2007 3:20 PM PLASTIC PRINTER Narrative 09/17/2007 5:07 PM PLASTIC PRINTER [address] [address] Admit Date: 09/16/2007 ERIC FREEMAN Sex: M Admit Prov: NICK BLANK Date: 1960 Primary Care Prov: ERIC DAI CMRN: [id number] Room: [facility] SSN: [id number] IMAGING SERVICES Ordering Prov: N/A Accession Number: [id number] Interpretation CROSSTABLE LATERAL RADIOGRAPH, CERVICAL SPINE, 09/16/2007 [...] SJ Procedure Note Provider, Historical - 09/17/2007 [facility] [address] [place], [place] [address] Admit Date: 09/16/2007 QUANG ERIC Sex: M Admit Prov: NICK BLANK Date: 1960 Primary Care Prov: ERIC DAI CMRN: [id number] [id number] [facility] Ordering Prov: N/A Interpretation CROSSTABLE [...]
--- OUTSIDE RECORDS SUMMARY | 2025-03-16 19:41 | XMS_ITS | Encounter Summary ---
Author Organization [facility] Address 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 History: [...] 18:36 Procedure Note Provider, Historical - 11/07/2007 [id number] [place], [place] [address] Admit Date: 11/07/2007 ERIC FREEMAN Sex: M Admit Prov: ER, AUTHORIZED P Date: 1960 Primary Care Prov: ERIC DAI CMRN: [id number] [id number] [facility] Ordering Prov: N/A Interpretation Exam: [...] PM CDT Narrative 11/07/2007 5:31 PM CDT [address] [address] Admit Date: 11/07/2007 QUANG ERIC Merayr Sex: M Admit Prov: ER, AUTHORIZED P Date: 1960 Primary Care Prov: MARCOSJUICEERIC NUNO CMRN: [id number] Room: [facility] SSN: [id number] IMAGING SERVICES Ordering Prov: N/A Accession Number: [id number] Interpretation Exam: Cervical spine, 5 views. History: [...] 17:31 Procedure Note Provider, Historical - 11/07/[address] [address] Admit Date: 11/07/2007 ERIC FREEMAN Sex: M Admit Prov: ER, AUTHORIZED P Date: 1960 Primary Care Prov: ERIC DAI CMRN: [id number] [facility]: [id number] IMAGING SERVICES Ordering Prov: N/A Interpretation Exam: [...] CDT) GLUCOSE 135(H) 65 - 99 mg/dL [facility] SODIUM 135 135 - 145 mmol/L [facility] CALCIUM 9.0 8.4 - 10.2 mg/dL [facility] CO2 26 22 - 30 mmol/L [facility] CREATININE 0.73 0.67 - 1.17 mg/dL [facility] POTASSIUM 4.6 3.5 - 4.9 mmol/L [facility] Comment: Moderate hemolysis present. Can cause significant falsely elevated result. Clinical judgement necessary. Redraw if indicated. BUN 16 6 - 20 mg/dL [facility] CHLORIDE 98 96 - 108 mmol/L [facility] GFR, >60 >=60 mL/min/1. 7 sq meter [facility] GFR >60 >=60 mL/min/1. 7 sq meter [facility] Comment: Estimated GFR rate interpretative information for both Americans and non- Americans is available on the [facility] Intranet at: [email or web address] Select: Lab Policies and Procedures Select: Reference Ranges - GFR Blood specimen (specimen) 11/07/2007 4:47 PM CDT 11/07/2007 5:04 PM CDT Guru Aragon Jr., MD CHEMISTRY ORDERABLES Edite d [facility] [address] [place] [address] * (ABNORMAL) C-REACTIVE PROTEIN (11/07/2007 4:47 PM CDT) [facility] CRP 6.3(H) 0.0 - 0.8 mg/dL [facility] Blood specimen (specimen) 11/07/2007 4:47 PM CDT 11/07/2007 5:04 PM CDT Guru Aragon Jr., MD CHEMISTRY ORDERABLES Final Result Performing Organization Address [facility]/ZIP Co de Phone Number [facility] [address] [place], [place] [address] * CBC WITH DIFFERENTIAL (11/07/2007 4:47 PM CDT) [facility] RBC 4.99 4.50 - 5.40 M/uL [facility] MCHC 33.0 31.5 - 35.5 % [facility] MCV 89.2 82.0 - 99.0 fL [facility] PLATELETS 256 140 - 350 K/uL [facility] HEMOGLOBIN 14.7 13.6 - 16.5 g/dL [facility] RDW 13.6 11.5 - 14.5 % [facility] WBC 6.5 4.0 - 9.8 K/uL [facility] MCH 29.5 27.2 - 32.6 pg [facility] MPV 10.5 9.3 - 12.4 fL [facility] HEMATOCRIT 44.5 40.0 - 48.0 % [facility] RDW-STDEV 44.2 37.1 - 48.7 fL [facility] NEUTROPHILS 63 45 - 70 % [facility] BASOPHILS 0 0 - 2 % [facility] BASOPHILS ABSOLUTE 0.01 0.00 - 0.20 K/uL [facility] MONOCYTES 9 3 - 13 % [facility] MONOCYTE ABSOLUTE 0.59 0.10 - 1.30 K/uL [facility] LYMPHOCYTES 26 16 - 45 % [facility] NEUTROPHIL ABSOLUTE 4.13 1.90 - 7.00 K/uL [facility] EOSINOPHILS 2 0 - 7 % [facility] EOSINOPHIL ABSOLUTE 0.12 0.00 - 0.70 K/uL [facility] LYMPHOCYTE ABSOLUTE 1.69 0.70 - 4.50 K/uL [facility] Blood specimen (specimen) 11/07/2007 4:47 PM CDT 11/07/2007 5:04 PM CDT Guru Aragon Jr., MD HEMATOLOGY ORDERABLES Edit ed INTERFACE SYSTEM Refer to clinic/hospital department [facility] [address] [place] [address] documented in this encounter Visit Diagnoses Not on filedocumented in this encounter
--- OUTSIDE RECORDS SUMMARY | 2025-03-16 19:41 | XMS_ITS | Encounter Summary ---
Author Organization [facility] Healthcare Address [address] [place] [address] Care Team Providers Care Compliance Spec Name Role Phone Eric Riley MD Primary Care Provider [phone] Encounter Details Date Type Department Care Team (Late st Contact Info) Description 10/15/2017 Orders Only [facility] Health Information Management [address] [place] [id number] Scanning, Provider Social History Tobacco Use Types Packs/Day Years Used Date Smoking Tobacco: Never Assessed Alcohol Use Standard Drinks/Week Comments No 0 (1 standard drink = 0.6 oz pur e alcohol) Sex and Gender Information Value Date Recorded Sex Assigned at Not on file 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
--- OUTSIDE RECORDS SUMMARY | 2025-03-16 19:42 | XMS_ITS | Clinical Summary ---
Author Organization [facility] [address] Address [address] [place] [address] Care Team Providers Care Infrastructure Project Manager Name Role Phone Eric Riley MD Primary Care Provider [phone] Allergies Active Allergy Reactions Criticality Noted Date [...] Diagnosed Date Coronary artery disease invo lving [place] coronary artery of [place] heart without angina pectoris 10/29/2017 History of [...] Type Department Care Team Description 03/16/2025 Telephone [facility] Cardiology [address] [facility] [address] [place] [address] Eric Esposito MD 01/06/2025 9:45 AM CDT Office Visit [facility] Cardiology at [address] [place] [address] Eric Esposito MD Presence of stent in coronary artery (Primary Dx); Coronary artery disease involving [place] coronary artery of [place] heart without angina pectoris from Last 3 [...] on file Legal Sex Male 1:06 AM REACHER Gender Identity Male 07/16/2021 10:51 AM REACHER Sexual Orientation Not on file Obstetrics History [...] Comments LIPID PANEL Routine 09/12/2024 8:44 PM REACHER from Last 3 Months or Most Recently Relevant to Health Maintenance Results * (ABNORMAL) Lipid panel (09/12/2024 8:44 PM REACHER) SCRIBED Cholesterol, Total 166 0 - 200 EXTERNAL LAB SCRIBED HDL 46 40 - 100 EXTERNAL LAB SCRIBED LDL 81 0 - 100 EXTERNAL LAB SCRIBED Triglycerides 213(A) 0 - 150 EXTERNAL LAB Blood 09/12/2024 8:44 PM REACHER us Historical Provider LAB BLOOD ORDERABLES [facility] Result EXTERNAL LAB from Last 3 Months or Most Recently Relevant to Health Maintenance Insurance MEDICARE [facility] Address: [address] [address] [place] [address] [facility] MEDICARE [facility] Care Teams Infrastructure Project Manager Relationship Specialty Start Date End Date Eric Riley MD PCP - General 08/29/10
[2025-03-16 19:44] LABS: Hematocrit 39.1 % (42.0-52.0); Hemoglobin 12.8 g/dL (14.0-18.0); Immature Granulocyte Percent A 0.2 % (0-0.5); Lymphocytes Absolute Auto 1.78 K/mm3 (0.9-3.2); Mean Corpuscular HGB Conc 32.7 g/dl (32-36); Mean Corpuscular Hemoglobin 30.1 pg (26-34); Mean Corpuscular Volume 92.0 fl (80-100); Nucleated Red Blood Cells Absolute Auto 0.000 K/mm3 (0.0-0.012); Nucleated Red Blood Cells Perc 0.0 % (0.0-0.2); Platelet Count Result 228 k/mm3 (150-375); Red Blood Count 4.25 M/mm3 (4.6-6.20); White Blood Count 4.7 K/mm3 (4.5-10.0)
[2025-03-16 19:56] LABS: INR 0.9; Partial Thromboplastin Time 26.0 Seconds (22.3-36.8); Prothrombin Time 12.3 Seconds (11.1-14.7)
[2025-03-16 19:57] LABS: Alanine Aminotransferase 43 U/L (6-50); Albumin Level 4.3 g/dL (3.5-5.1); Alkaline Phosphatase 70 U/L (38-126); Anion Gap 7 mmol/L (4-12); Aspartate Amino Transferase 29 U/L (17-59); Bilirubin,Total 0.5 mg/dL (0.2-1.3); Blood Urea Nitrogen 19 mg/dL (9-20); Calcium 9.4 mg/dL (8.4-10.2); Carbon Dioxide 26 mmol/L (22-30); Chloride 103 mmol/L (98-107); Estimated CRCL calculation 59 ml/min; Estimated Glomerular Filt Rate > 60; Glucose 226 mg/dL (65-110); Lipase 272 U/L (23-300); Potassium 4.2 mmol/L (3.4-5.0); Sodium 136 mmol/L (137-145); Total Protein 7.3 g/dL (6.3-8.2)
--- NOTE | 2025-03-16 19:57 | ED.GENADULT ---
HPI - General Adult General Chief complaint: Chest Pain Stated complaint: chest pain, jaw pain, shoulder pain Time Seen by Provider: 03/16/25 19:17 History of Present Illness HPI narrative: This is a 65-year-old male with history of coronary artery disease and previous stent placement presenting for jaw and arm pain. Patient says over the last 3-4 days he has been having achy pain in his left jaw and heaviness in his arm. It is worse with exercise. It improves with rest. It is not associated diaphoresis or vomiting. The patient knows decreased exercise tolerance and when he was walking the wraps at the [facility] today he became very winded and the pain came worse after walking 1-2 which is not normal for him. At the moment patient says he still has a slight discomfort in his jaw but is not nearly as bad as it was earlier today. Related Data Home Medications ?Medication ?Instructions ?Recorded ?Confirmed ?Last Taken ?Type aspirin 81 mg tablet,delayed 81 mg PO DAILY 08/18/19 01/09/25 08/13/22 History release (Adult Low Dose Aspirin) nitroglycerin 0.4 mg sublingual 0.4 mg sublingual PRN 02/08/21 01/09/25 02/20/21 History tablet pen needle, diabetic 32 gauge x #1,200 ea 01/09/25 01/09/25 Unknown History (TRUEplus Pen Needle) Allergies Allergy/AdvReac Type Severity Reaction Status Date / Time quinine Allergy Intermediate Skin Verified 03/13/25 10:31 Reaction Quinolones Allergy Intermediate RASH Verified 03/13/25 10:31 simvastatin Allergy Intermediate myalgias Verified 03/13/25 10:31 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 Rectal Hemorrhage Metatarsalgia, right foot Hypothyroid ASHD (arteriosclerotic heart disease) Acute thyroiditis Hyperlipidemia, unspecified Meniere's disease, unspecified Stricture and stenosis of esophagus Type 2 diabetes mellitus with hyperglycemia Surgical History Surgical History H/O cervical spine surgery S/P right inguinal hernia repair robotic assisted right inguinal hernia repair with mesh 08/14/22 History of coronary artery stent placement 1 stent 09/2017 Family History Family History Father Family history of cardiovascular disease Family history of lymphoma Parkinsons disease Mother Family history of cardiovascular disease Family history of elevated blood lipids Diabetes mellitus Hypertension Acute myocardial infarction Grandparent Acute myocardial infarction Other Depression Family history of arthritis Family history of malignant neoplasm of bone Social History Social History Social History: Caffeine-coffee/tea Smoking status: Never smoker Alcohol intake: current Drinks per week: 1 Alcohol use details: VERY RARE Substance use: never Substance use type: does not use Current Housing: Decline to Answer Concerned About Future Housing: Decline to Answer Difficulty Paying Gas/Electric Bills: Decline to Answer Difficulty Paying for Meds: Decline to Answer Currently Unemployed: Decline to Answer Education: Decline to Answer Difficulty w/ Childcare or Family Care: Decline to Answer Living arrangements: with family Spiritual care concerns: No Exam Narrative: APPEARANCE: No apparent distress. Head: atraumatic. EYES: EOMI, NOSE: Atraumatic NECK: Trachea midline RESPIRATORY: No increased rate of breathing, clear to auscultation CARDIOVASCULAR: RRR, no peripheral edema ABDOMINAL: Non-distended soft nontender MUSCULOSKELETAl: No obvious deformities NEURO: Alert. Moving 4/4 extremities SKIN:: Warm, dry. Normal color PSYCHIATRIC: Normal affect Course Vital Signs Vital signs: Vital Signs Temperature 98 F 03/16/25 19:06 Pulse Rate 77 03/16/25 19:06 Respiratory Rate 14 03/16/25 19:06 Blood Pressure 123/64 03/16/25 19:06 Pulse Oximetry 98 03/16/25 19:06 Oxygen Delivery Room Air 03/16/25 19:06 Temperature 98 F 03/16/25 19:12 Pulse Rate 76 03/16/25 19:12 Respiratory Rate 15 03/16/25 19:12 Blood Pressure 123/64 03/16/25 19:12 Pulse Oximetry 99 03/16/25 19:12 Oxygen Delivery Room Air 03/16/25 19:12 Medical Decision Making MDM Narrative Medical decision making narrative: -Course: 65-year-old male history of coronary artery disease presenting with cardiac pain. He does not have pain in his chest but he has heaviness in his jaw and left arm which is how his previous heart attacks presented. Pain is worse with exercise and he has decreased exercise tolerance. Improves w/ rest. This has never occurred before the last 3 days. Additionally when the patient had a STEMI in August of this year he had developed left shoulder pain 2 days prior which is similar to his feeling today. His initial EKG showed nonspecific ST changes in the inferior and anterior septal leads. Initial troponin is negative. Chest x-ray clear. Patient's chest pain is unstable angina vs angina. Patient given lovenox/asa. Cardiology consulted. They will evaluate in the morning. -DDX includes but is not limited to: ACS, PNA, PE, PTX, AOD -Co-morbidities complicating care: Coronary artery disease with stenting Vital Signs Vital Signs: Vital Signs Temperature 98 F 03/16/25 19:06 Pulse Rate 77 03/16/25 19:06 Respiratory Rate 14 03/16/25 19:06 Blood Pressure 123/64 03/16/25 19:06 Pulse Oximetry 98 03/16/25 19:06 Oxygen Delivery Room Air 03/16/25 19:06 Temperature 98 F 03/16/25 19:12 Pulse Rate 76 03/16/25 19:12 Respiratory Rate 15 03/16/25 19:12 Blood Pressure 123/64 03/16/25 19:12 Pulse Oximetry 99 03/16/25 19:12 Oxygen Delivery Room Air 03/16/25 19:12 Lab Data 03/16/25 19:34 03/16/25 19:34 Labs: Lab Results 03/16/25 Range/Units 19:34 WBC 4.7 (4.5-10.0) K/mm3 RBC 4.25 L (4.6-6.20) M/mm3 Hgb 12.8 L (14.0-18.0) g/dL Hct 39.1 L (42.0-52.0) % MCV 92.0 (80-100) fl MCH 30.1 (26-34) pg MCHC 32.7 (32-36) g/dl RDW 13.6 (11.5-14.5) % Plt Count 228 (150-375) k/mm3 MPV 10.2 (7.4-10.4) fl Immature Gran % (Auto) 0.2 (0-0.5) % Neut % (Auto) 51.1 (45.5-73.1) % Lymph % (Auto) 37.7 (18.3-44.2) % [place] % (Auto) 8.1 (2.6-8.5) % Eos % (Auto) 2.5 (0-4.4) % Baso % (Auto) 0.4 (0.2-1.2) % Lymph # (Auto) 1.78 (0.9-3.2) K/mm3 [place] # (Auto) 0.4 (0.1-0.6) K/mm3 Eos # (Auto) 0.1 (0-0.3) K/mm3 Baso # (Auto) 0.0 (0.0-0.1) K/mm3 Abs Immat Gran (auto) 0.01 (0.00-0.031) K/mm3 Absolute Neuts (auto) 2.4 (1.3-6.7) K/mm3 Absolute Nucleated RBC 0.000 (0.0-0.012) K/mm3 Nucleated RBC % 0.0 (0.0-0.2) % PT 12.3 (11.1-14.7) Seconds INR 0.9 APTT 26.0 (22.3-36.8) Seconds Sodium 136 L (137-145) mmol/L Potassium 4.2 (3.4-5.0) mmol/L Chloride 103 (98-107) mmol/L Carbon Dioxide 26 (22-30) mmol/L Anion Gap 7 (4-12) mmol/L BUN 19 (9-20) mg/dL Creatinine 1.04 (0.7-1.3) mg/dL Estim Creat Clear Calc 59 ml/min Estimated GFR > 60 (59 - ) Glucose 226 H (65-110) mg/dL Calcium 9.4 (8.4-10.2) mg/dL Total Bilirubin 0.5 (0.2-1.3) mg/dL AST 29 (17-59) U/L ALT 43 (6-50) U/L Alkaline Phosphatase 70 (38-126) U/L Troponin I < 0.012 (0.000-0.034) ng/mL Total Protein 7.3 (6.3-8.2) g/dL Albumin 4.3 (3.5-5.1) g/dL Lipase 272 (23-300) U/L Critical Care Time Critical Care Time Critical Care Time: Yes Total Critical Care Time: 35 Discharge Plan Discharge Clinical Impression: Unstable angina Patient Disposition: Still a Patient Condition: Stable Patient Language: [place] Prescriptions: No Action aspirin [Adult Low Dose Aspirin] 81 mg tablet,delayed release (DR/EC) 81 mg PO DAILY (DME) pen needle, diabetic [TRUEplus Pen Needle] 32 gauge x 5/32 needle See Rx Instructions .ROUTE .MEDSUPPLY Qty: 1200 Rx Instructions: As directed (DME) FreeStyle Viry 3 Sensor Device See Rx Instructions .Route Qty: 13 3RF Rx Instructions: As directed insulin degludec [Tresiba FlexTouch U-100] 100 unit/mL (3 mL) insulin pen 10 unit subcut DAILY Qty: 15 5RF Brilinta 90 mg Tablet 90 mg PO Q12HR 30 Days Qty: 60 11RF metoprolol tartrate 25 mg Tablet 25 mg PO Q12HR Qty: 60 12RF atorvastatin 40 mg Tablet 80 mg PO DAILY Qty: 60 12RF nitroglycerin 0.4 mg tablet, sublingual 0.4 mg sublingual PRN (DME) FreeStyle Viry 2 [place] Misc See Rx Instructions .ROUTE .MEDSUPPLY Qty: 1 0RF Rx Instructions: As directed (DME) FreeStyle Viry 2 Sensor Kit See Rx Instructions .ROUTE .MEDSUPPLY Qty: 13 3RF Rx Instructions: As directed (DME) NovoFine Plus 32 gauge x 1/6 needle See Rx Instructions .Route Qty: 100 3RF Rx Instructions: As directed use with Tresiba pen levothyroxine 75 mcg tablet 75 mcg PO DAILY Qty: 90 1RF omeprazole 20 mg capsule,delayed release(DR/EC) See Rx Instructions .ROUTE .COMPLEX Qty: 90 1RF Dose Instruction: TAKE 1 CAPSULE(20 MG) BY MOUTH DAILY Rx Instructions: TAKE 1 CAPSULE(20 MG) BY MOUTH DAILY metformin 1,000 mg tablet extended release 24hr See Rx Instructions .ROUTE .COMPLEX Qty: 90 1RF Dose Instruction: TAKE 1 TABLET BY MOUTH DAILY Rx Instructions: TAKE 1 TABLET BY MOUTH DAILY Follow-up/Referrals: Eric Riley MD [Primary Care Provider, [facility]]
[2025-03-16 20:09] LABS: Troponin I < 0.012 ng/mL (0.000-0.034)
--- NOTE | 2025-03-16 20:56 | ECG_ITS ---
Test Date: 2025-03-16 21:55:00 Measurements Intervals [place] Rate: 65 P: 28 SC: 199 QRS: 23 QRSD: 85 T: -3 QT: 372 QTc: 387 Interpretive Statements SINUS RHYTHM INCOMPLETE RIGHT BUNDLE BRANCH BLOCK LOW QRS VOLTAGE IN PRECORDIAL LEADS BORDERLINE ST-T WAVE ABNORMALITY- ANT/INF LEADS BASELINE ARTIFACT- I, II, III, AVR, AVL, AVF, V1-V3 BORDERLINE ECG Compared to ECG 03/16/2025 19:14:07 NO SIGNIFICANT CHANGE Electronically Signed On 03-17-2025 06:38:51 CDT by Kenneth Townsend D.O.
--- NOTE | 2025-03-16 21:36 | PM.IMHP ---
H&P: HPI History of Present Illness Date/Time: 03/16/25 21:36 Chief Complaint: Chest pain Narrative: Patient is 65-year-old male with h/o CAD s/p prior PCI and PTCA (unknown vessel) in 2018, PCI to mid RCA 09/14/2024, HLD, esophageal stricture, hypothyroidism, GERD, DM visited ED due to chest pain, jaw pain, and left shoulder numbness. Patient reports he went to [employer] this evening and started experiencing left arm numbness and jaw pain. Patient reports lately he has jaw pain with exertional activity. Patient has a history of stent placement at 2018 and and 0 09/14/2024 patient underwent emergent cardiac catheterization status post successful IVUS guided PCI to mid RCA 99% thrombotic stenosis with 3.0X26mm [place] [employer] AWILDA. Patient is currently admitted in the setting of unstable angina. Patient will be started with therapeutic Lovenox as per cardiology recommended. 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 Rectal Hemorrhage Metatarsalgia, right foot Hypothyroid ASHD (arteriosclerotic heart disease) Acute thyroiditis Hyperlipidemia, unspecified Meniere's disease, unspecified Stricture and stenosis of esophagus Type 2 diabetes mellitus with hyperglycemia Surgical History Surgical History H/O cervical spine surgery S/P right inguinal hernia repair robotic assisted right inguinal hernia repair with mesh 08/14/22 History of coronary artery stent placement 1 stent 09/2017 Family History Family History Father Family history of cardiovascular disease Family history of lymphoma Parkinsons disease Mother Family history of cardiovascular disease Family history of elevated blood lipids Diabetes mellitus Hypertension Acute myocardial infarction Grandparent Acute myocardial infarction Other Depression Family history of arthritis Family history of malignant neoplasm of bone Social History Social History Social History: Caffeine-coffee/tea Smoking status: Never smoker Alcohol intake: never Drinks per week: 1 Alcohol use details: VERY RARE Substance use: never Substance use type: does not use Lack of Transportation: No Lack of Food: Never True Current Housing: I Have Housing Concerned About Future Housing: No Difficulty Paying Gas/Electric Bills: No Difficulty Paying for Meds: No Currently Unemployed: No Education: Trade/Vocational Certificate Difficulty w/ Childcare or Family Care: No Living arrangements: with family Spiritual care concerns: No Meds Home Medications and Allergies Home Medications ?Medication ?Instructions ?Recorded ?Confirmed ?Type aspirin 81 mg tablet,delayed 81 mg PO DAILY 08/18/19 03/16/25 History release (Adult Low Dose Aspirin) nitroglycerin 0.4 mg sublingual 0.4 mg sublingual PRN 02/08/21 03/16/25 History tablet flash glucose scanning reader #1 ea 02/13/23 03/17/25 Rx (FreeStyle Viry 2 Convoy) flash glucose sensor (FreeStyle #13 ea 03/11/23 03/17/25 Rx Viry 2 Sensor kit) blood-glucose sensor (FreeStyle #13 ea 03/12/23 03/17/25 Rx Viry 3 Sensor device) pen needle, diabetic 32 gauge x #100 ea 08/31/24 03/17/25 Rx 1/6 (NovoFine Plus) ticagrelor 90 mg tablet (Brilinta) 90 mg PO Q12HR 30 days #60 tabs 09/13/24 03/17/25 Rx atorvastatin 40 mg tablet 80 mg (2 x 40 mg) PO DAILY #60 tabs 09/14/24 03/16/25 Rx metoprolol tartrate 25 mg tablet 25 mg PO Q12HR #60 tabs 09/14/24 03/16/25 Rx levothyroxine 75 mcg tablet 75 mcg PO DAILY #90 tabs 12/19/24 03/16/25 Rx metformin 1,000 mg tablet,extended See Rx Instructions .Route 01/09/25 03/16/25 Rx release 24hr (osmotic) .COMPLEX #90 tabs omeprazole 20 mg capsule,delayed See Rx Instructions .Route 01/09/25 03/16/25 Rx release .COMPLEX #90 caps pen needle, diabetic 32 gauge x #1,200 ea 01/09/25 03/17/25 History (TRUEplus Pen Needle) insulin degludec 100 unit/mL (3 10 unit subcut QHS 03/16/25 03/16/25 History mL) subcutaneous pen (Tresiba FlexTouch U-100 insulin) Allergies Allergy/AdvReac Type Severity Reaction Status Date / Time quinine Allergy Intermediate Skin Verified 03/13/25 10:31 Reaction Quinolones Allergy Intermediate RASH Verified 03/13/25 10:31 simvastatin Allergy Intermediate myalgias Verified 03/13/25 10:31 Vital Signs Vital Signs - 24 hr 03/16/25 19:06 03/16/25 19:12 03/16/25 19:12 Temperature 98 F 98 F Pulse Rate 77 81 76 Respiratory Rate 14 15 Blood Pressure 123/64 123/64 Pulse Oximetry 98 99 Oxygen Delivery Room Air Room Air 03/16/25 19:12 Temperature Pulse Rate Respiratory Rate Blood Pressure Pulse Oximetry 99 Oxygen Delivery Room Air Exam Narrative: APPEARANCE: No apparent distress. Head: atraumatic. EYES: EOMI, NOSE: Atraumatic NECK: Trachea midline RESPIRATORY: No increased rate of breathing, clear to auscultation CARDIOVASCULAR: RRR, no peripheral edema ABDOMINAL: Non-distended soft nontender MUSCULOSKELETAl: No obvious deformities NEURO: Alert. Moving 4/4 extremities SKIN:: Warm, dry. Normal color PSYCHIATRIC: Normal affect H&P: Results Labs Labs: Short CBC 03/16/25 Range/Units 19:34 WBC 4.7 (4.5-10.0) K/mm3 Hgb 12.8 L (14.0-18.0) g/dL Hct 39.1 L (42.0-52.0) % Plt Count 228 (150-375) k/mm3 [facility] 03/16/25 19:34 Sodium 136 L Potassium 4.2 Chloride 103 Carbon Dioxide 26 BUN 19 Creatinine 1.04 Glucose 226 H Calcium 9.4 Cardiac Enzymes 03/16/25 Range/Units 19:34 Troponin I < 0.012 (0.000-0.034) ng/mL Liver Function 03/16/25 Range/Units 19:34 Total Bilirubin 0.5 (0.2-1.3) mg/dL AST 29 (17-59) U/L ALT 43 (6-50) U/L Alkaline Phosphatase 70 (38-126) U/L Albumin 4.3 (3.5-5.1) g/dL Assessment and Plan Assessment and plan (1) Unstable angina: Code(s): I20.0 - Unstable angina Status: Acute Assessment and Plan: Unstable angina -previous history of PTCA (unknown vessel) in 2018, PCI to mid RCA 09/14/2024 -patient received Lovenox 1 milligram/kg -continuation of aspirin and Brilinta according to Cardiology -Echocardiogram performed 0 09/13 shows Left ventricular systolic function is normal, estimated at 55-60%. -Denies any illicit drug use -Reviewed EKG and CXR (2) Type 2 diabetes mellitus with hyperglycemia: Code(s): E11.65 - Type 2 diabetes mellitus with hyperglycemia Status: Acute Assessment and Plan: SSI Hypoglycemic blood HbA1c 7.5 (3) Hypertension: Code(s): I10 - Essential (primary) hypertension Status: Acute Assessment and Plan: Continue metoprolol tartrate 25 mg p.o. b.i.d. (4) Hypothyroid: Code(s): E03.9 - Hypothyroidism, unspecified Status: Acute Assessment and Plan: Continue levothyroxine 75 mcg Plan Code status: Full code DVT prophylaxis: On Lovenox Medication reconciliation pending Hospitalist MIPS Advance Care Plan I have confirmed that the patient's Advanced Care Plan is present, code status is documented, or surrogate decision maker is listed in patient medical record.: Yes Medication Reconciliation I have utilized all available resources to obtain, update and review the patients current medications (includes all prescriptions, OTC, herbals, cannabis, and nutritional supplements).: Yes
[2025-03-16] MEDS: ENOXAPARIN 80 MG/0.8 ML SYRINGE 68 MG SUB-Q (22:20)
[2025-03-16 22:36] VITALS: BP 118/69; PULSE 75; RESP 19; O2SAT 98
[2025-03-16 22:44] LABS: Troponin I < 0.012 ng/mL (0.000-0.034)
[2025-03-16 22:45] VITALS: BP 118/64; PULSE 67; RESP 14; TEMP 36.8; O2SAT 99; BMI 23.1
[2025-03-16 23:00] VITALS: PULSE 62
--- NOTE | 2025-03-16 23:15 | ADMGEN ---
This patient, Eric Freeman, was admitted to IMU Room 202-. Patient/family oriented to hospital policies and general routines including ID bracelet, bed and alarms, visiting hours, pain management, procedures, bathroom and other care routines, personal items, smoking policy, room service/diet, and visiting hours. Information on how to activate the Rapid Response Team has been discussed. Patient/Family are encouraged to report perceived risks to care and to ask questions if they do not understand what they are told or what they should do.
[2025-03-17] VITALS (12 sets, daily range): BP systolic 104–131; BP diastolic 56–69; PULSE 56–75; RESP 14–18; TEMP 36.4–36.8; O2SAT 94–100
--- NOTE | 2025-03-17 | EST_ITS ---
Patient Info Name: Eric Freeman Age: 65 years : 1960 Gender: Male Ht: 70 in Wt: 160 lbs BSA: 1.89 m2 HR: 62 bpm BP: 123 / 70 mmHg Exam Date: 03/17/2025 11:47 AM Patient Status: I Admit Date: 03/16/2025 Exam Type: CA stress test treadmill w NM A nuclear stress test was performed. Staff Referring Physician: Arabella Rice Attending Provider: Josue Vizcarra Nurse: Arabella Rice Exercise Technologist: Irasema Espinal Summary 1. Exercise capacity fair to good at 6-10 METS[address] 2[address] No abnormal ST-T wave changes with maximal exertional capacity. 3. Please correlate with nuclear medicine images, reported separately. Protocol: Luis E Stress ECG Details Stage: REST Duration (min): 1 min : 29 sec Speed (mph): 0.0 Grade (%): 0 HR (bpm): 62 SBP (mmHg): 123 DBP (mmHg): 73 METS: --- Stage: REST Duration (min): 8 min : 9 sec Speed (mph): 0.0 Grade (%): 0 HR (bpm): 83 SBP (mmHg): 123 DBP (mmHg): 73 METS: --- Stage: STAGE 1 Duration (min): 1 min : 0 sec Speed (mph): 1.7 Grade (%): 10 HR (bpm): 106 SBP (mmHg): 123 DBP (mmHg): 73 METS: --- Stage: STAGE 1 Duration (min): 2 min : 0 sec Speed (mph): 1.7 Grade (%): 10 HR (bpm): 121 SBP (mmHg): 123 DBP (mmHg): 73 METS: --- Stage: STAGE 1 Duration (min): 3 min : 0 sec Speed (mph): 1.7 Grade (%): 10 HR (bpm): 124 SBP (mmHg): 177 DBP (mmHg): 53 METS: --- Stage: STAGE 2 Duration (min): 1 min : 0 sec Speed (mph): 2.5 Grade (%): 12 HR (bpm): 127 SBP (mmHg): 177 DBP (mmHg): 53 METS: --- Stage: STAGE 2 Duration (min): 2 min : 0 sec Speed (mph): 2.5 Grade (%): 12 HR (bpm): 131 SBP (mmHg): 172 DBP (mmHg): 56 METS: --- Stage: STAGE 2 Duration (min): 3 min : 0 sec Speed (mph): 2.5 Grade (%): 12 HR (bpm): 133 SBP (mmHg): 172 DBP (mmHg): 56 METS: --- Stage: RECOVERY Duration (min): 0 min : 59 sec Speed (mph): 0.0 Grade (%): 0 HR (bpm): 119 SBP (mmHg): 148 DBP (mmHg): 55 METS: --- Stage: RECOVERY Duration (min): 1 min : 59 sec Speed (mph): 0.0 Grade (%): 0 HR (bpm): 100 SBP (mmHg): 148 DBP (mmHg): 55 METS: --- Stage: RECOVERY Duration (min): 2 min : 59 sec Speed (mph): 0.0 Grade (%): 0 HR (bpm): 96 SBP (mmHg): 151 DBP (mmHg): 62 METS: --- Stage: RECOVERY Duration (min): 3 min : 59 sec Speed (mph): 0.0 Grade (%): 0 HR (bpm): 97 SBP (mmHg): 151 DBP (mmHg): 62 METS: --- Stage: RECOVERY Duration (min): 4 min : 8 sec Speed (mph): 0.0 Grade (%): 0 HR (bpm): 93 SBP (mmHg): 151 DBP (mmHg): 62 METS: --- Rest HR: 83 bpm Peak HR: 133 bpm Rest Sys BP: 123 mmHg Peak Sys BP: 177 mmHg Max Pred HR: 153 bpm % Max Pred HR: 87 % Target HR: 130 bpm Max RPP: 23,541 bpm*mmHg Landa Score: 2 Target HR Summary: Patient's target heart rate was achieved BP Response: Normal blood pressure response Cardiac Symptoms: Atypical angina Max ST Seg Deviation: -0.90 mm Total Time: 6 min : 1 sec Rest Bush BP: 73 mmHg Peak Bush BP: 53 mmHg Angina Score: None Total METS: 7.1 Resting ECG Normal sinus rhythm. Stress ECG Sinus tachycardia with no ischemic ST-T wave changes. Arrhythmias None. Report Signatures
--- NOTE | 2025-03-17 | ECHO_ITS ---
Patient Info Name: Eric Freeman Age: 65 years : 1960 Gender: Male Ht: 70 in Wt: 160 lbs BSA: 1.89 m2 HR: 70 bpm BP: 121 / 59 mmHg Technical Quality: Good Exam Date: 03/17/2025 11:53 AM Patient Status: I Admit Date: 03/16/2025 Exam Type: CA echo doppler color flow Complete two-dimensional, color flow and Doppler transthoracic echocardiogram is performed. Staff Referring Physician: Arabella Rice Software Engineer Intern: April Olson Attending Provider: Josue Vizcarra Summary 1. Complete two-dimensional, color flow and Doppler transthoracic echocardiogram is performed. 2. There is normal biventricular size and systolic function. 3. There are no significant valvular abnormalities. Left Ventricle The left ventricle is normal in size and systolic function. The left ventricular ejection fraction is visually estimated to be 60-65%. There is grade 1 diastolic dysfunction. There are no regional wall motion abnormalities. Right Ventricle The right ventricle is normal in size and systolic function. Left Atria The left atrium is normal size. Right Atria The right atrium is normal size. Atrial Septum The atrial septum is normal. Aortic Valve The aortic valve is trileaflet and opens well. There is no aortic regurgitation. Pulmonic Valve The pulmonic valve is not well visualized. There is no color Doppler evidence of pulmonic valve regurgitation. Mitral Valve The mitral valve is normal. There is no mitral regurgitation. Tricuspid Valve The tricuspid valve is normal. There is no tricuspid regurgitation. Pericardium/Pleural Pericardium is normal in appearance with no evidence for significant pericardial effusion. Inferior Vena Cava Normal inferior vena cava with >50% collapse upon inspiration consistent with normal right atrial pressure, 3 mmHg. Aorta The aortic root at the level of the sinus of Valsalva measures 3.1 cm in diameter. Left Ventricular Outflow Tract Name Value Normal LVOT 2D LVOT Diameter 2.0 cm LVOT Doppler LVOT Peak Velocity 97 cm/s LVOT Peak Gradient 4 mmHg LVOT Mean Gradient 2 mmHg LVOT VTI 24 cm LVOT Stroke Volume 78 ml LVOT CO 5.4 l/min LVOT CI 2.9 l/min/m2 Pulmonic Valve Name Value Normal RVOT Doppler RVOT Peak Velocity 58 cm/s RVOT Peak Gradient 1 mmHg PV Doppler PV Peak Velocity 77 cm/s PV Peak Gradient 2 mmHg Mitral Valve Name Value Normal MV Diastolic Function MV E Peak Velocity 59 cm/s MV A Peak Velocity 82 cm/s MV E/A 0.7 MV Decel Time (PW) 176 ms MV Annular TDI MV E/e' (Septal) 9.9 MV E/e' (Lateral) 5.2 MV E/e' (Average) 7.6 Tricuspid Valve Name Value Normal Estimated PAP/RSVP RA Pressure 3 mmHg <=5 Aortic Valve Name Value Normal AV Doppler AV Peak Velocity 123 cm/s AV Peak Gradient 6 mmHg AV Area (Cont Eq Yair) 2.6 cm2 AV DI (Yair) 0.79 AV Regurgitation 2D LVOT Area 3.3 cm2 Ventricles Name Value Normal LV Dimensions 2D/MM IVS Diastolic Thickness (2D) 0.7 cm 0.6-1.0 LVID Diastole (2D) 4.1 cm 4.2-5.8 LVIW Diastolic Thickness (2D) 1.1 cm 0.6-1.0 LVID Systole (2D) 2.9 cm 2.5-4.0 LVOT Diameter 2.0 cm LV Mass (2D Cubed) 112.47 g 88.00-224.00 LV Mass Index (2D Cubed) 59 g/m2 49-115 Relative Wall Thickness (2D) 0.53 <=0.42 LV Fractional Shortening/Ejection Fraction 2D/MM LV Fractional Shortening (2D) 28 % 25-43 LV EF (2D Tejaren) 55 % LV Diastolic Volume (4C MOD) 112 ml LV EF (4C MOD) 63 % LV Diastolic Volume (2C MOD) 120 ml LV EF (2C MOD) 63 % LV Diastolic Volume (BP MOD) 118 ml 62-150 LV Diastolic Volume Index (BP MOD) 62 ml/m2 34-74 LV Systolic Volume (BP MOD) 44 ml 21-61 LV Systolic Volume Index (BP MOD) 23 ml/m2 11-31 LV EF (BP MOD) 62 % 52-72 LV Diastolic Length (4C) 8.6 cm LV Systolic Length (4C) 6.7 cm LV Stroke Volume (4C MOD) 70 ml Atria Name Value Normal LA Dimensions LA Volume (4C A-L) 30 ml LA Volume (BP A-L) 33 ml RA Dimensions RA Area (4C) 13.6 cm2 <=18.0 Report Signatures
[2025-03-17 01:06] LABS: Hematocrit 38.0 % (42.0-52.0); Hemoglobin 12.3 g/dL (14.0-18.0); Immature Granulocyte Percent A 0.2 % (0-0.5); Lymphocytes Absolute Auto 2.21 K/mm3 (0.9-3.2); Mean Corpuscular HGB Conc 32.4 g/dl (32-36); Mean Corpuscular Hemoglobin 29.8 pg (26-34); Mean Corpuscular Volume 92.0 fl (80-100); Nucleated Red Blood Cells Absolute Auto 0.000 K/mm3 (0.0-0.012); Nucleated Red Blood Cells Perc 0.0 % (0.0-0.2); Platelet Count Result 207 k/mm3 (150-375); Red Blood Count 4.13 M/mm3 (4.6-6.20); White Blood Count 4.8 K/mm3 (4.5-10.0)
[2025-03-17 01:31] LABS: Troponin I < 0.012 ng/mL (0.000-0.034)
--- NOTE | 2025-03-17 11:48 | PM.CNCAR ---
Assessment and Plan Assessment and plan (1) Angina of effort: Code(s): I20.89 - Other forms of angina pectoris Status: Acute (2) CAD (coronary artery disease): Code(s): I25.10 - Atherosclerotic heart disease of [place] coronary artery without angina pectoris Status: Acute (3) Hyperlipidemia, unspecified: Code(s): E78.5 - Hyperlipidemia, unspecified Status: Acute Plan 65-year-old man with CAD (inferior STEMI status post PCI to RCA 08/2024), diabetes, and hyperlipidemia presented with jaw and left arm numbness Angina -appears stable at this time -consolidate metoprolol to succinate 50 mg p.o. daily -start isosorbide mononitrate 15 mg p.o. daily -after discussing with the patient his , would recommend proceed with the nuclear stress test with treadmill exercise today -obtain stat transthoracic echocardiogram CAD status post PCI -continue aspirin 81 mg p.o. daily and Brilinta 90 mg p.o. b.i.d. Hyperlipidemia -atorvastatin 80 mg every evening History of Present Illness History of Present Illness Consult date/time: 03/17/25 11:48 Requesting physician: Josue Vizcarra MD Consult reason: chest pain Reason For Visit: Angina Narrative: 65-year-old man with CAD (inferior STEMI status post PCI to RCA 08/2024), diabetes, and hyperlipidemia presented with jaw and left arm numbness. His previous STEMI presentation was jaw and left arm pain however this time he did not have any pain but was concerned with the numbness that he was experiencing. He has noted that with physical activity and numbness with occurred and would resolve with rest. Currently while he is laying supine in his hospital bed, he does not have any jaw or left arm numbness. He has not experience any chest discomfort. Typically physically active. 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 Rectal Hemorrhage Metatarsalgia, right foot Hypothyroid ASHD (arteriosclerotic heart disease) Acute thyroiditis Hyperlipidemia, unspecified Meniere's disease, unspecified Stricture and stenosis of esophagus Type 2 diabetes mellitus with hyperglycemia Surgical History Surgical History H/O cervical spine surgery S/P right inguinal hernia repair robotic assisted right inguinal hernia repair with mesh 08/14/22 History of coronary artery stent placement 1 stent 09/2017 Family History Family History Father Family history of cardiovascular disease Family history of lymphoma Parkinsons disease Mother Family history of cardiovascular disease Family history of elevated blood lipids Diabetes mellitus Hypertension Acute myocardial infarction Grandparent Acute myocardial infarction Other Depression Family history of arthritis Family history of malignant neoplasm of bone Social History Social History Social History: Caffeine-coffee/tea Smoking status: Never smoker Alcohol intake: never Drinks per week: 1 Alcohol use details: VERY RARE Substance use: never Substance use type: does not use Lack of Transportation: No Lack of Food: Never True Current Housing: I Have Housing Concerned About Future Housing: No Difficulty Paying Gas/Electric Bills: No Difficulty Paying for Meds: No Currently Unemployed: No Education: Trade/Vocational Certificate Difficulty w/ Childcare or Family Care: No Living arrangements: with family Spiritual care concerns: No Meds Home Medications and Allergies Home Medications ?Medication ?Instructions ?Recorded ?Confirmed ?Type aspirin 81 mg tablet,delayed 81 mg PO DAILY 08/18/19 03/16/25 History release (Adult Low Dose Aspirin) nitroglycerin 0.4 mg sublingual 0.4 mg sublingual PRN 02/08/21 03/16/25 History tablet flash glucose scanning reader #1 ea 02/13/23 03/17/25 Rx (FreeStyle Viry 2 [place]) flash glucose sensor (FreeStyle #13 ea 03/11/23 03/17/25 Rx Viry 2 Sensor kit) blood-glucose sensor (FreeStyle #13 ea 03/12/23 03/17/25 Rx Viry 3 Sensor device) pen needle, diabetic 32 gauge x #100 ea 08/31/24 03/17/25 Rx 1/6 (NovoFine Plus) ticagrelor 90 mg tablet (Brilinta) 90 mg PO Q12HR 30 days #60 tabs 09/13/24 03/17/25 Rx atorvastatin 40 mg tablet 80 mg (2 x 40 mg) PO DAILY #60 tabs 09/14/24 03/16/25 Rx metoprolol tartrate 25 mg tablet 25 mg PO Q12HR #60 tabs 09/14/24 03/16/25 Rx levothyroxine 75 mcg tablet 75 mcg PO DAILY #90 tabs 12/19/24 03/16/25 Rx metformin 1,000 mg tablet,extended See Rx Instructions .Route 01/09/25 03/16/25 Rx release 24hr (osmotic) .COMPLEX #90 tabs omeprazole 20 mg capsule,delayed See Rx Instructions .Route 01/09/25 03/16/25 Rx release .COMPLEX #90 caps pen needle, diabetic 32 gauge x #1,200 ea 01/09/25 03/17/25 History (TRUEplus Pen Needle) insulin degludec 100 unit/mL (3 10 unit subcut QHS 03/16/25 03/16/25 History mL) subcutaneous pen (Tresiba FlexTouch U-100 insulin) Allergies Allergy/AdvReac Type Severity Reaction Status Date / Time quinine Allergy Intermediate Skin Verified 03/13/25 10:31 Reaction Quinolones Allergy Intermediate RASH Verified 03/13/25 10:31 simvastatin Allergy Intermediate myalgias Verified 03/13/25 10:31 Vital Signs Vital Signs - 24 hr 03/16/25 19:06 03/16/25 19:12 03/16/25 19:12 Temperature 36.6 C 36.6 C Pulse Rate 77 81 76 Respiratory Rate 14 15 Blood Pressure 123/64 123/64 Pulse Oximetry 98 99 Oxygen Delivery Room Air Room Air 03/16/25 19:12 03/16/25 22:36 03/16/25 22:45 Temperature 36.8 C Pulse Rate 75 67 Respiratory Rate 19 14 Blood Pressure 118/69 118/64 Pulse Oximetry 99 98 99 Oxygen Delivery Room Air 03/16/25 23:00 03/17/25 00:00 03/17/25 02:00 Temperature 36.7 C Pulse Rate 62 59 L 58 L Respiratory Rate 16 Blood Pressure 120/60 Pulse Oximetry 99 Oxygen Delivery 03/17/25 04:00 03/17/25 04:00 03/17/25 04:00 Temperature 36.8 C Pulse Rate 74 58 L 58 L Respiratory Rate 14 14 Blood Pressure 104/56 L Pulse Oximetry 99 99 Oxygen Delivery Room Air 03/17/25 06:00 03/17/25 08:00 03/17/25 08:00 Temperature Pulse Rate 56 L 68 Respiratory Rate Blood Pressure Pulse Oximetry Oxygen Delivery Room Air 03/17/25 08:09 03/17/25 10:00 03/17/25 10:05 Temperature 36.7 C Pulse Rate 66 70 Respiratory Rate 18 Blood Pressure 121/59 L Pulse Oximetry 98 94 Oxygen Delivery Room Air 03/17/25 11:40 Temperature 36.4 C Pulse Rate 66 Respiratory Rate 18 Blood Pressure 125/69 Pulse Oximetry 100 Oxygen Delivery Exam Const: General: comfortable HENMT: Mouth: Yes moist mucous membranes Eyes: EOM: EOMs intact bilaterally Neck: Neck: no JVD Resp: Effort & Inspection: normal respiratory effort Auscultation: clear to auscultation bilaterally Cardio: Rate: regular rate Rhythm: regular rhythm GI: GI Palp: Yes Soft to palpation Neuro: Speech: normal speech Extrem: General: normal to inspection Results Labs and Meds 03/17/25 00:54 03/16/25 19:34 Lab results: Cardiac Enzymes 03/16/25 03/16/25 03/17/25 Range/Units 19:34 22:14 00:54 AST 29 (17-59) U/L Troponin I < 0.012 < 0.012 < 0.012 (0.000-0.034) ng/mL Coagulation 03/16/25 Range/Units 19:34 PT 12.3 (11.1-14.7) Seconds APTT 26.0 (22.3-36.8) Seconds CBC 03/16/25 03/17/25 Range/Units 19:34 00:54 WBC 4.7 4.8 (4.5-10.0) K/mm3 RBC 4.25 L 4.13 L (4.6-6.20) M/mm3 Hgb 12.8 L 12.3 L (14.0-18.0) g/dL Hct 39.1 L 38.0 L (42.0-52.0) % Plt Count 228 207 (150-375) k/mm3 Lymph # (Auto) 1.78 2.21 (0.9-3.2) K/mm3 [place] # (Auto) 0.4 0.5 (0.1-0.6) K/mm3 Eos # (Auto) 0.1 0.1 (0-0.3) K/mm3 Baso # (Auto) 0.0 0.0 (0.0-0.1) K/mm3 Comprehensive Metabolic Panel 03/16/25 Range/Units 19:34 Sodium 136 L (137-145) mmol/L Potassium 4.2 (3.4-5.0) mmol/L Chloride 103 (98-107) mmol/L Carbon Dioxide 26 (22-30) mmol/L BUN 19 (9-20) mg/dL Creatinine 1.04 (0.7-1.3) mg/dL Glucose 226 H (65-110) mg/dL Calcium 9.4 (8.4-10.2) mg/dL AST 29 (17-59) U/L ALT 43 (6-50) U/L Alkaline Phosphatase 70 (38-126) U/L Total Protein 7.3 (6.3-8.2) g/dL Albumin 4.3 (3.5-5.1) g/dL Intake and Output 03/16/25 03/17/25 03/17/25 23:59 07:59 15:59 Intake Total 50 Balance 50 Intake: Oral 50 Other: # Unmeasured Voids 1 Patient Weight 03/17/25 23:59 Weight 73 kg
[2025-03-17] MEDS: TICAGRELOR 90 MG TABLET PO (12:33)
--- NOTE | 2025-03-17 16:31 | PM.DS ---
DS: Admitting Diagnosis Discharge Date 03/17/2025 Admitting Diagnosis Chest pain DS: Discharge Diagnosis Discharge Diagnosis (1) Unstable angina: Code(s): I20.0 - Unstable angina Status: Acute Assessment and Plan: Please refer to hospital course for brief summary Unstable angina -previous history of PTCA (unknown vessel) in 2018, PCI to mid RCA 09/14/2024 -patient received Lovenox 1 milligram/kg -continuation of aspirin and Brilinta according to Cardiology -Echocardiogram performed 0 09/13 shows Left ventricular systolic function is normal, estimated at 55-60%. -Denies any illicit drug use -Reviewed EKG and CXR (2) Type 2 diabetes mellitus with hyperglycemia: Code(s): E11.65 - Type 2 diabetes mellitus with hyperglycemia Status: Acute Assessment and Plan: SSI Hypoglycemic blood HbA1c 7.5 (3) Hypertension: Code(s): I10 - Essential (primary) hypertension Status: Acute Assessment and Plan: Continue metoprolol tartrate 25 mg p.o. b.i.d. (4) Hypothyroid: Code(s): E03.9 - Hypothyroidism, unspecified Status: Acute Assessment and Plan: Continue levothyroxine 75 mcg DS: Summary Hospital Course Hospital Course: Patient is 65-year-old male with h/o CAD s/p prior PCI and PTCA (unknown vessel) in 2018, PCI to mid RCA 09/14/2024, HLD, esophageal stricture, hypothyroidism, GERD, DM visited ED due to chest pain, jaw pain, and left shoulder numbness. Patient reports he went to [email or web address] this evening and started experiencing left arm numbness and jaw pain. Patient reports lately he has jaw pain with exertional activity. Patient has a history of stent placement at 2018 and and 0 09/14/2024 patient underwent emergent cardiac catheterization status post successful IVUS guided PCI to mid RCA 99% thrombotic stenosis with 3.0X26mm [place] [employer] AWILDA. Patient is currently admitted in the setting of unstable angina. Patient will be started with therapeutic Lovenox as per cardiology recommendation Patient was evaluated by the Cardiology who advised to start of isosorbide mononitrate 15 mg p.o. q.d. and consolidate metoprolol to succinate 50 mg p.o. q.d. and patient underwent nuclear stress test and echocardiogram which did not show significant findings. As per Cardiology patient can be discharged. On the day of discharge, the patient was seen and examined. Vital signs were stable. Physical exam were stable and labs were reviewed at length. Discharge instructions, medications, and follow-up appointments were discussed with the patient at length and all day questions were answered. ER warnings were given. Status at Discharge Cognitive/behavioral status at discharge: Stable Time Spent with Patient Time attestation: Total time spent providing and/or coordinating discharge services: 45 minutes Exam Narrative: APPEARANCE: No apparent distress. Head: atraumatic. EYES: EOMI, NOSE: Atraumatic NECK: Trachea midline RESPIRATORY: No increased rate of breathing, clear to auscultation CARDIOVASCULAR: RRR, no peripheral edema ABDOMINAL: Non-distended soft nontender MUSCULOSKELETAl: No obvious deformities NEURO: Alert. Moving 4/4 extremities SKIN:: Warm, dry. Normal color PSYCHIATRIC: Normal affect DS: Data Data Completed and Pending Labs on day of discharge: Labs from last 24 hours 03/17/25 03/17/25 03/17/25 16:25 11:29 07:20 WBC RBC Hgb Hct MCV MCH MCHC RDW Plt Count MPV Immature Gran % (Auto) Neut % (Auto) Lymph % (Auto) [place] % (Auto) Eos % (Auto) Baso % (Auto) Lymph # (Auto) [place] # (Auto) Eos # (Auto) Baso # (Auto) Abs Immat Gran (auto) Absolute Neuts (auto) Absolute Nucleated RBC Nucleated RBC % PT INR APTT Sodium Potassium Chloride Carbon Dioxide Anion Gap BUN Creatinine Estim Creat Clear Calc Estimated GFR Glucose POC Capillary Glucose 94 124 H 127 H Calcium Total Bilirubin AST ALT Alkaline Phosphatase Troponin I Total Protein Albumin Lipase 03/17/25 03/16/25 03/16/25 00:54 22:14 19:34 WBC 4.8 4.7 RBC 4.13 L 4.25 L Hgb 12.3 L 12.8 L Hct 38.0 L 39.1 L MCV 92.0 92.0 MCH 29.8 30.1 MCHC 32.4 32.7 RDW 13.5 13.6 Plt Count 207 228 MPV 10.2 10.2 Immature Gran % (Auto) 0.2 0.2 Neut % (Auto) 41.2 L 51.1 Lymph % (Auto) 45.8 H 37.7 [place] % (Auto) 9.7 H 8.1 Eos % (Auto) 2.7 2.5 Baso % (Auto) 0.4 0.4 Lymph # (Auto) 2.21 1.78 [place] # (Auto) 0.5 0.4 Eos # (Auto) 0.1 0.1 Baso # (Auto) 0.0 0.0 Abs Immat Gran (auto) 0.01 0.01 Absolute Neuts (auto) 2.0 2.4 Absolute Nucleated RBC 0.000 0.000 Nucleated RBC % 0.0 0.0 PT 12.3 INR 0.9 APTT 26.0 Sodium 136 L Potassium 4.2 Chloride 103 Carbon Dioxide 26 Anion Gap 7 BUN 19 Creatinine 1.04 Estim Creat Clear Calc 59 Estimated GFR > 60 Glucose 226 H POC Capillary Glucose Calcium 9.4 Total Bilirubin 0.5 AST 29 ALT 43 Alkaline Phosphatase 70 Troponin I < 0.012 < 0.012 < 0.012 Total Protein 7.3 Albumin 4.3 Lipase 272 Imaging Radiologist's impression: ITS Impressions Chest X-Ray 03/16/25 19:25 IMPRESSION: 1. No acute cardiopulmonary disease. Pharmacological Stress Test 03/17/25 15:41 IMPRESSION: 1. Normal myocardial perfusion at rest and during stress. 2. Left ventricular ejection fraction measuring 68%. Discharge Plan Discharge Attending physician on discharge: Josue Vizcarra Consulting providers: Amaury Weinstein Discharging Clinician: Josue Vizcarra Anticipated Discharge Date/Time: 03/17/25 16:34 Patient Disposition: Home Activity: as tolerated Diet: heart healthy Discharge Instructions: Patient started on metoprolol succinate 50 mg instead of metoprolol tartrate 25 mg p.o. b.i.d. Patient also started on isosorbide mononitrate 15 mg p.o. q.d. Please continue other medications as instructed Check blood pressure 1 to 2 times a day. Record and bring into your doctor for review. Call your doctor if your blood pressure is greater than 180/110 or less than 90/45. Walk with cane or other assist device. Take precautions to avoid falls. Rise slowly from a lying or sitting position. Pause before standing or walking. Contact your doctor or call 911 and come to the Emergency Room if you have any type of trauma, lightheadedness with standing or other worrisome symptoms. Avoid NSAIDs (ibuprofen, naproxen, Aleve). Tylenol is safe to take. Follow-up with your primary care provider in 1-2 weeks. Please call for appointment. Follow-up with Cardiology in 2-4 weeks. Please call for an appointment. Thank you for using [facility] for your health care needs. Patient Instructions: Antibiotic Form, Angina (GEN) Patient Language: Jordanian Stand Alone Forms: General Discharge Information Follow-up/Referrals: Amaury Weinstein MD [Physician, Interventional Cardiology] Eric Riley MD [Primary Care Provider, Family Practice] Discharge Medications: New isosorbide dinitrate 10 mg tablet 15 mg PO ONCE Qty: 30 0RF Rx Instructions: allow nitrate-free interval of 12-14 hrs per 24-hr period metoprolol succinate 50 mg Tablet Extended Release 24 Hr 50 mg PO QAM Qty: 30 0RF isosorbide dinitrate 10 mg tablet 15 mg PO ONCE Qty: 30 0RF Rx Instructions: allow nitrate-free interval of 12-14 hrs per 24-hr period Continued aspirin [Adult Low Dose Aspirin] 81 mg tablet,delayed release (DR/EC) 81 mg PO DAILY (DME) pen needle, diabetic [TRUEplus Pen Needle] 32 gauge x 5/32 needle See Rx Instructions .ROUTE .MEDSUPPLY Qty: 1200 Rx Instructions: As directed (DME) FreeStyle Viry 3 Sensor Device See Rx Instructions .Route Qty: 13 3RF Rx Instructions: As directed ticagrelor [Brilinta] 90 mg Tablet 90 mg PO Q12HR 30 Days Qty: 60 11RF atorvastatin 40 mg Tablet 80 mg PO DAILY Qty: 60 12RF nitroglycerin 0.4 mg tablet, sublingual 0.4 mg sublingual PRN insulin degludec [Tresiba FlexTouch U-100] 100 unit/mL (3 mL) insulin pen 10 unit subcut QHS (DME) FreeStyle Viry 2 [place] See Rx Instructions .ROUTE .MEDSUPPLY Qty: 1 0RF Rx Instructions: As directed (DME) FreeStyle Viry 2 Sensor Kit See Rx Instructions .ROUTE .MEDSUPPLY Qty: 13 3RF Rx Instructions: As directed (DME) NovoFine Plus 32 gauge x 1/6 needle See Rx Instructions .Route Qty: 100 3RF Rx Instructions: As directed use with Tresiba pen levothyroxine 75 mcg tablet 75 mcg PO DAILY Qty: 90 1RF omeprazole 20 mg capsule,delayed release(DR/EC) See Rx Instructions .ROUTE .COMPLEX Qty: 90 1RF Dose Instruction: TAKE 1 CAPSULE(20 MG) BY MOUTH DAILY Rx Instructions: TAKE 1 CAPSULE(20 MG) BY MOUTH DAILY metformin 1,000 mg tablet extended release 24hr See Rx Instructions .ROUTE .COMPLEX Qty: 90 1RF Dose Instruction: TAKE 1 TABLET BY MOUTH DAILY Rx Instructions: TAKE 1 TABLET BY MOUTH DAILY Discontinued metoprolol tartrate 25 mg Tablet 25 mg PO Q12HR Qty: 60 12RF Date of admission: 03/16/25 21:49 Primary Care Provider: Eric Riley Admitting Provider: Josue Vizcarra Attending physician on admission: Josue Vizcarra Condition: Stable
== END 2025-03-17 17:38 | disposition home or self-care (01) | DRG 303 ==
LOC: ANHED 21:27 → ANHIMU 22:25
PROVIDERS: Admitting Provider General Practice; Emergency Provider Emergency Medicine; PCP Family Medicine; Visit Provider General Practice
DX: I25.110 Atherosclerotic heart disease of native coronary artery with unstable angina pectoris (principal); E78.5 Hyperlipidemia, unspecified; E11.65 Type 2 diabetes mellitus with hyperglycemia; E03.9 Hypothyroidism, unspecified; I10 Essential (primary) hypertension; I25.2 Old myocardial infarction; K21.9 Gastro-esophageal reflux disease without esophagitis; Z95.5 Presence of coronary angioplasty implant and graft; Z79.4 Long term (current) use of insulin; Z79.84 Long term (current) use of oral hypoglycemic drugs; Z79.82 Long term (current) use of aspirin
CPT/HCPCS: 36415; 71045; 78452; 80053; 82948; 83690; 84484; 85025; 85610; 85730; 93005; 93017; 93306; 96365; 96372; 99285; A9270; A9502; J1650

== ENCOUNTER 2025-06-12 09:15 | Outpatient (CLI) | payer MEDICARE, SELFPAY ==
[2025-06-12 10:03] LABS: INR 0.9; Prothrombin Time 12.6 Seconds (11.1-14.7)
[2025-06-12 10:04] LABS: Partial Thromboplastin Time 24.9 Seconds (22.3-36.8)
--- OUTSIDE RECORDS SUMMARY | 2025-06-12 10:16 | XMS_ITS | Encounter Summary ---
Author Organization [facility] Address [address] [place] [address] Care Team Providers Care Baggageman Name Role Phone Unavailable Primary Care Provider Unavailabl e Encounter Details Date Type Department Care Team (Late st Contact Info) Description 02/16/2006 Outpatient Historical [facility] Support Serv. ([facility] Cardiology[facility]) [address] 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
--- OUTSIDE RECORDS SUMMARY | 2025-06-12 10:16 | XMS_ITS | Clinical Summary ---
Author Organization [facility] [address] Address [address] [place] [address] Care Team Providers Care Payment Manager Name Role Phone Eric Riley MD Primary Care Provider [phone] Allergies Active Allergy Reactions Criticality Noted Date [...] differently: 80 mg oral Daily, Reported on 04/07/2025 levothyroxine (SYNTHROID) 75 mcg tablet Take 1 [...] chest pain 30 tablet 2 5 Active isosorbide mononitrate ER (IMDUR) 30 mg 24 hr tabletIndication s:prevention of anginal pain in coronary artery disease Take 0.5 tablets (15 mg total) by mouth daily 45 tablet 3 5 04/07/20 26 Active Active Problems Problem Noted Date Diagnosed Date Coronary artery disease invo lving [place] tribe coronary artery of [place] tribe heart without angina pectoris 10/29/2017 History [...] Encounters Date Type Department Care Team Description 06/06/2025 Telephone [facility] Cardiology [address] [place] [address] [place] [phone] Skylar Cohen NP 04/07/2025 9:00 AM CDT Office Visit [facility] Cardiology [address] [place] [address] [address] [place] [address] Skylar Cohen NP 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 (Primary Dx); Hospital discharge follow-up 03/30/2025 11:44 AM CDT - 03/30/2025 11:59 PM CDT Hospital Encounter [address] [place] [address] Pain in right elbow Discharge Disposition: Discharge to home or self care 03/27/2025 Orders Only [facility] Cardiology [address] [place] [address] [address] [place] [phone] Amaury Weinstein MD 03/21/2025 Telephone [facility] Cardiology [address] [place] [address] Eric Esposito MD 03/16/2025 Orders Only [facility] Information [facility] [address] [place] [address] Amaury Weinstein MD 03/16/2025 Telephone [facility] Cardiology [address] [place] [address] Eric Esposito MD from Last 3 Months Surgical History Surgery Date Site/Laterality Comments SPINE SURGERY 12/19/2007 - 01/17/2008 Medical History Medical History Date Comments Hx Other Medical prediabates Hx Other Medical esophageal stri cture s/p dilation Gastroesophageal reflux disease GERD Hyperlipidemia Hyperlipidemia Arthritis Clotting disorder April Diabetes mellitus Heart disease 10/12/17 Thyroid disease Family History [...] on file Legal Sex Male 1:06 AM OUTSIDE PLANT FIELD ENGINEER Gender Identity Male 07/16/2021 10:51 AM OUTSIDE PLANT FIELD ENGINEER Sexual Orientation Not on file Last Filed Vital Signs Vital Sign Reading Time Taken Comments Blood Pressure 98/60 04/07/2025 8:50 AM CDT Pulse 82 04/07/2025 8:50 AM CDT Temperature - - Respiratory Rate 16 12/29/2019 11:09 AM CDT Oxygen Saturation 99% 04/07/2025 8:50 AM CDT Inhaled Oxygen Concentration - - Weight 71.4 kg (157 lb 4.8 oz) 04/07/2025 8:50 A M CDT Height 177.8 cm (5' 10) 04/07/2025 8:50 AM CDT Body Mass Index 22.57 04/07/2025 8:50 AM CDT Plan of Treatment Health Maintenance Due Date Last Done Comments Albumin Creatinine Ratio, Urine 1960 Colon Cancer Screening-Colonoscopy 1960 Depression Screening 1958 Fall Risk Assessment 1960 Hemoglobin A1C 1958 Hepatitis C Screening 1960 Prostate Cancer Screening-PSA 1960 eGFR 1960 Dilated Eye Exam 1960 Foot Exam 1960 Zoster Vaccine (1 of 2) 02/08/2008 Pneumococcal vaccine 65+ (2 of 2 - PPSV23, PCV20, or PCV21) 06/27/2020 05/02/2020 Well Visit 65+ 2023 Influenza Vaccine (#1) 2025 , 05/20/2018, 05/07/2017, Additional history exists Lipid Panel 09/12/2025 09/12/2024, 08/0 12/2023, 12/24/2022, Additional history exists DTaP/Tdap/Td Vaccine (4 - Td or Tdap) 07/30/2032 07/30/2022, 12/19/2016, 09/27/2009, Additional history exists Hepatitis B Screening Completed 10/07/1990 , 04/08/1990, 03/11/1990 Procedures Procedure Name Priority Date/Time Associated Diagnosis Comments XR ELBOW RIGHT 3 OR MORE VIEWS Schedule Routine, Read Routine (OP Routine) 03/30/2025 11:50 AM CDT Pain in right elbow CARDIOLOGY DOCUMENT SCAN Routine 03/17/2025 5:24 PM CDT CARDIOLOGY DOCUMENT SCAN 03/16/2025 SCAN - RADIOLOGY/IMAGING 03/16/2025 LIPID PANEL Routine 09/12/2024 8:44 PM OUTSIDE PLANT FIELD ENGINEER from Last 3 Months or Most Recently Relevant to Health Maintenance Results * XR Elbow Right 3 or More Views (03/30/2025 11:50 AM CDT) Anatomical Region Laterality Modality Upper Extremities, Elbow Right Compute d Radiography 04/02/2025 6:18 PM CDT Narrative 04/02/2025 6:20 PM CDT EXAM DESCRIPTION: 1. XR ELBOW RIGHT 3 OR MORE VIEWS REASON FOR STUDY: Pain in right elbow Pain in Rt elbow for 2-2.5 weeks. No known injury. No sx hx FINDINGS: Three views submitted without comparison. No acute fracture. Alignment is normal. The joint spaces are normal. Chronic lateral epicondylitis is present. Small triceps enthesophyte. No effusion. IMPRESSION: 1. Right elbow chronic lateral epicondylitis. THIS IS AN ELECTRONICALLY VERIFIED FINAL REPORT 04/02/2025 6:20 PM - Electronically signed by Eric Hinton M.D. T: Report ID: [id number] Reading Location: [id number] Procedure Note Eric Hinton MD - 04/02/2025 EXAM DESCRIPTION: 1. XR ELBOW RIGHT 3 OR MORE VIEWS REASON FOR STUDY: Pain in right elbow Pain in Rt elbow for 2-2.5 weeks. No known injury. No sx hx FINDINGS: Three views submitted without comparison. No acute fracture. Alignment is normal. The joint spaces are normal. Chronic lateral epicondylitis is present. Small triceps enthesophyte.No effusion. IMPRESSION: 1. Right elbow chronic lateral epicondylitis. THIS IS AN ELECTRONICALLY VERIFIED FINAL REPORT 04/02/2025 6:20 PM - Electronically signed by Eric Hinton M.D. T: Report ID: [id number] Reading Location: [id number] Eric Riley MD IMG XR PROCEDURES Final R esult * Cardiology Document Scan (03/17/2025 5:24 PM CDT) Anatomical Region Laterality Modality Other Amaury Weinstein MD [facility] PROCEDURES F inal Result * SCAN - RADIOLOGY/IMAGING (03/16/2025) Anatomical Region Laterality Modality Other Arabella Rice EDUCATION ADMINISTRATOR Final Result * Cardiology Document Scan (03/16/2025) Anatomical Region Laterality Modality Other Amaury Weinstein MD CV CARDIAC SERVICES PROCEDURES E dited Result - Final * (ABNORMAL) Lipid panel (09/12/2024 8:44 PM OUTSIDE PLANT FIELD ENGINEER) SCRIBED Cholesterol, Total 166 0 - 200 EXTERNAL LAB SCRIBED HDL 46 40 - 100 EXTERNAL LAB SCRIBED LDL 81 0 - 100 EXTERNAL LAB SCRIBED Triglycerides 213(A) 0 - 150 EXTERNAL LAB Blood 09/12/2024 8:44 PM OUTSIDE PLANT FIELD ENGINEER Historical Provider LAB BLOOD ORDERABLES [facility] Result EXTERNAL LAB from Last 3 Months or Most Recently Relevant to Health Maintenance Insurance MEDICARE [facility] MEDICARE [facility] Care Teams Payment Manager Relationship Specialty Start Date End Date Eric Riley MD PCP - General 08/29/10
--- OUTSIDE RECORDS SUMMARY | 2025-06-12 10:16 | XMS_ITS | Encounter Summary ---
Author Organization [facility] Address 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
--- OUTSIDE RECORDS SUMMARY | 2025-06-12 10:16 | XMS_ITS | Clinical Summary ---
Author Organization [facility] Address [address] 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
--- OUTSIDE RECORDS SUMMARY | 2025-06-12 10:16 | XMS_ITS | Encounter Summary ---
Author Organization [facility] Healthcare Address [address] [place] [address] Care Team Providers Care Sld Educational Aide Name Role Phone Eric Riley MD Primary Care Provider [phone] Encounter Details Date Type Department Care Team (Late st Contact Info) Description 10/15/2017 Orders Only [facility] Health Information Management [address] [place] [address] Scanning, Provider Social History Tobacco Use Types Packs/Day Years Used Date Smoking Tobacco: Never Assessed Alcohol Use Standard Drinks/Week Comments No 0 (1 standard drink = 0.6 oz pur e alcohol) Sex and Gender Information Value Date Recorded Sex Assigned at Not on file Legal Sex Male 1:06 AM RN PERINATAL Gender Identity Male 07/16/2021 10:51 AM RN PERINATAL Sexual Orientation Not on file documented as [...] on filedocumented in this encounter Care Teams Sld Educational Aide Relationship Specialty Start Date End Date Eric Riley MD PCP - General 08/29/10 documented as of this encounter
--- OUTSIDE RECORDS SUMMARY | 2025-06-12 10:16 | XMS_ITS | Encounter Summary ---
Author Organization [facility] Address [address] [place] [address] Care Team Providers Care Shellfish Farming Supervisor Name Role Phone Unavailable Primary Care Provider Unavailivan e Encounter Details Date Type Department Care Team (Latest Contact Info) Description 09/16/2007 Outpatient Historical [facility] Nick Blank MD [address] [place] [address] -x0 (Work) Displacement of Cervical Intervertebral Disc without Myelopathy Social History Tobacco Use Types Packs/Day Years Used Date Smoking Tobacco: Never Assessed Sex and Gender Information Value Date Recorded Sex Assigned at Not on file Legal Sex Male 4:05 AM COUNTER CHECKER Gender Identity Not on file Sexual Orientation Not on file documented as of this encounter Plan of Treatment Not on file documented as of this encounter Procedures Procedure Name Priority Date/Time Associated Diagnosis Comments XR CERVICAL SPINE 1 VW Routine 09/16/2007 3:20 PM COUNTER CHECKER documented in this encounter Results * XR CERVICAL SPINE 1 VW (09/16/2007 3:20 PM COUNTER CHECKER) Anatomical Region Laterality Modality Spine Other 09/16/2007 3:20 PM COUNTER CHECKER Narrative 09/17/2007 5:07 PM COUNTER CHECKER [address] [address] Admit Date: 09/16/2007 ERIC FREEMAN Sex: M Admit Prov: NICK BLANK Date: 1960 Primary Care Prov: ERIC DAI CMRN: [id number] Room: [facility] SSN: [id number] IMAGING SERVICES Ordering Prov: N/A Accession Number: [id number] Interpretation CROSSTABLE LATERAL RADIOGRAPH, CERVICAL SPINE, 09/16/2007 [...] SJ Procedure Note Provider, Historical - 09/17/2007 [facility] [address], [place] [address] Admit Date: 09/16/2007 QUANG ERIC Sex: M Admit Prov: NICK BLANK Date: 1960 Primary Care Prov: ERIC DAI CMRN: [id number] [facility]: [id number] IMAGING SERVICES Ordering Prov: N/A Interpretation CROSSTABLE [...]
--- OUTSIDE RECORDS SUMMARY | 2025-06-12 10:16 | XMS_ITS | Encounter Summary ---
Author Organization [employer] Address 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 History: [...] 18:36 Procedure Note Provider, Historical - 11/07/2007 [id number] [place], [place] [address] Admit Date: 11/07/2007 ERIC FREEMAN Sex: M Admit Prov: ER, AUTHORIZED P Date: 1960 Primary Care Prov: ERIC DAI CMRN: [id number] [facility] [id number] [facility] Ordering Prov: N/A Interpretation Exam: [...] PM CDT Narrative 11/07/2007 5:31 PM CDT [address] [address] Admit Date: 11/07/2007 QUANG ERIC Merary Sex: M Admit Prov: ER, AUTHORIZED P Date: 1960 Primary Care Prov: MARCOSJUICEERIC NUNO CMRN: [id number] Room: [facility] SSN: [id number] IMAGING SERVICES Ordering Prov: N/A Accession Number: [id number] Interpretation Exam: Cervical spine, 5 views. History: [...] 17:31 Procedure Note Provider, Historical - 11/07/[address] [address] Admit Date: 11/07/2007 ERIC FREEMAN Sex: M Admit Prov: ER, AUTHORIZED P Date: 1960 Primary Care Prov: ERIC DAI CMRN: [id number] [facility] [id number] IMAGING SERVICES Ordering Prov: N/A Interpretation Exam: [...] CDT) GLUCOSE 135(H) 65 - 99 mg/dL [facility] SODIUM 135 135 - 145 mmol/L [facility] CALCIUM 9.0 8.4 - 10.2 mg/dL [facility] CO2 26 22 - 30 mmol/L [facility] CREATININE 0.73 0.67 - 1.17 mg/dL [facility] POTASSIUM 4.6 3.5 - 4.9 mmol/L [facility] Comment: Moderate hemolysis present. Can cause significant falsely elevated result. Clinical judgement necessary. Redraw if indicated. BUN 16 6 - 20 mg/dL [facility] CHLORIDE 98 96 - 108 mmol/L [facility] GFR, >60 >=60 mL/min/1. 7 sq meter [facility] GFR >60 >=60 mL/min/1. 7 sq meter [facility] Comment: Estimated GFR rate interpretative information for both Americans and non- Americans is available on the [facility] Intranet at: [email or web address] Select: Lab Policies and Procedures Select: Reference Ranges - GFR Blood specimen (specimen) 11/07/2007 4:47 PM CDT 11/07/2007 5:04 PM CDT Guru Aragon Jr., MD CHEMISTRY ORDERABLES Edite d [facility] [address] [place] [address] * (ABNORMAL) C-REACTIVE PROTEIN (11/07/2007 4:47 PM CDT) [facility] CRP 6.3(H) 0.0 - 0.8 mg/dL [facility] Blood specimen (specimen) 11/07/2007 4:47 PM CDT 11/07/2007 5:04 PM CDT Guru Aragon Jr., MD CHEMISTRY ORDERABLES Final Result Performing Organization Address [facility]/ZIP Co de Phone Number [facility] [address] [place], [place] [address] * CBC WITH DIFFERENTIAL (11/07/2007 4:47 PM CDT) [facility] RBC 4.99 4.50 - 5.40 M/uL [facility] MCHC 33.0 31.5 - 35.5 % [facility] MCV 89.2 82.0 - 99.0 fL [facility] PLATELETS 256 140 - 350 K/uL [facility] HEMOGLOBIN 14.7 13.6 - 16.5 g/dL [facility] RDW 13.6 11.5 - 14.5 % [facility] WBC 6.5 4.0 - 9.8 K/uL [facility] MCH 29.5 27.2 - 32.6 pg [facility] MPV 10.5 9.3 - 12.4 fL [facility] HEMATOCRIT 44.5 40.0 - 48.0 % [facility] RDW-STDEV 44.2 37.1 - 48.7 fL [facility] NEUTROPHILS 63 45 - 70 % [facility] BASOPHILS 0 0 - 2 % [facility] BASOPHILS ABSOLUTE 0.01 0.00 - 0.20 K/uL [facility] MONOCYTES 9 3 - 13 % [facility] MONOCYTE ABSOLUTE 0.59 0.10 - 1.30 K/uL [facility] LYMPHOCYTES 26 16 - 45 % [facility] NEUTROPHIL ABSOLUTE 4.13 1.90 - 7.00 K/uL [facility] EOSINOPHILS 2 0 - 7 % [facility] EOSINOPHIL ABSOLUTE 0.12 0.00 - 0.70 K/uL [facility] LYMPHOCYTE ABSOLUTE 1.69 0.70 - 4.50 K/uL [facility] Blood specimen (specimen) 11/07/2007 4:47 PM CDT 11/07/2007 5:04 PM CDT Guru Aragon Jr., MD HEMATOLOGY ORDERABLES Edit ed INTERFACE SYSTEM Refer to clinic/hospital department [facility] [address] [place] [address] documented in this encounter Visit Diagnoses Not on filedocumented in this encounter
--- OUTSIDE RECORDS SUMMARY | 2025-06-12 10:16 | XMS_ITS | Encounter Summary ---
Author Organization [employer] Address [address] [place] [address] Care Team Providers Care Admissions Supervisor Name Role Phone Unavailable Primary Care Provider Unavailabl e Encounter Details Date Type Department Care Team (Latest Contact Info) Description 02/26/2006 Outpatient Historical [facility] Nick Bethea MD [address] [address]x0 (Work) Displacement of Cervical Intervertebral Disc without Myelopathy (Primary Dx) Social History Tobacco Use Types Packs/Day Years Used Date Smoking Tobacco: Never Assessed Sex and Gender Information Value Date Recorded Sex Assigned at Not on file Legal Sex Male 4:05 AM RADIATION PHYSICIST Gender Identity Not on file Sexual Orientation [...]
== END 2025-06-12 09:16 | disposition home or self-care (01) ==
LOC: ANHSURGERY 09:17
PROVIDERS: PCP Family Medicine; Visit Provider Urology
DX: Z01.818 Encounter for other preprocedural examination (principal); N20.0 Calculus of kidney
CPT/HCPCS: 36415; 85610; 85730; 87086

== ENCOUNTER 2025-06-23 00:43 | Day surgery (SDC) | payer MEDICARE, SELFPAY ==
[2025-06-05 13:19] VITALS: BMI 22.1
--- NOTE | 2025-06-05 13:29 | PC.NURSE ---
[facility] has started construction of its new state of the art ER which will open Spring 2026. With this, we anticipate parking may be a challenge for some our surgical patients and families. Parking spaces are limited but are available for all Surgical, obstetrics, and ER patients sharing this lot. If you arrive and find you are having a hard time finding a parking space, please note that we understand the challenges, please drive around the hospital and park near Hospital Entrance 1. When you enter this entrance, you can ask a volunteer to direct or take you back to the surgical waiting area to check in. We appreciate everyone?s understanding of these expected challenges while we build for your future. Report to the Outpatient Waiting Room, entrance under the green pavilion located off [address], at time __0600am on date ___06/23/25____. Planned Procedure Time: _0730am .? Time changes happen often and if your time is changed the preop area will call you the afternoon before. - You and your visitor will be asked to self-screen and do not enter if you have any COVID symptoms. Please call surgeon if you need to reschedule. - A mask is optional within the hospital at this time. Patients may have clear liquids (water, carbonated beverages, clear teas, apple juice) until 3 hours prior to surgery with a maximum of 20 ounces. - No food from midnight until time of surgery and no smoking, or chewing tobacco (or any form of nicotine). No chewing gum, candy or mints. (0430am) Take only the following medications with a SIP of water on the morning of surgery: ___Metoprolol, Levothyroxine, Isosorbide and Tylenol if needed DO NOT STOP ANY OF YOUR OTHER PRESCRIPTION MEDICATIONS PRIOR TO SURGERY EXCEPT THE FOLLOWING Hold all vitamins, herbs, probiotics, supplements, Aspirin for [address] Khanna. Date of last dose is 06/15/25 Medications to discontinue per physician HOLD BRILLINTA per Dr Esposito Date to take last dose____Pending, ( pt to clarify w them) Please no make-up, nail sami, hairspray, perfume, deodorant, or body powder the day of surgery.? No jewelry (including any body piercings) or valuables the day of surgery, leave them at home.? Please take a shower or bath the night before, or the morning of, surgery with an antibacterial soap GOLD DIAL ? Wear comfortable, loose fitting clothing.? - Jewelry must be removed prior to entering the operating room.? Rings and piercings that are not removed may be cut off. - The hospital will not accept responsibility for valuables.? - Please leave all valuables, including medications, at home the day of surgery. If you are going home after surgery, a licensed skip load driver must drive you home.? - NO public transportation without another adult if you receive anesthesia. - We recommend that an adult stay with you for 24 hours following discharge. - We also recommend that you do not drive, make important decision, drink alcoholic beverages, or take any drugs that were not prescribed by your health care provider for at least 24 hours after your discharge time. Follow any additional instructions given to you from your surgeon. Telephone instructions given to __Patient & Beata and asked if any additional questions and then verbalized understanding. Patient advised to call surgeon office or pre surgery nurse liaison [phone] if any additional questions.
--- NOTE | 2025-06-09 10:08 | PM.HPGS ---
History of Present Illness History of Present Illness Consent: Risks, benefits, and alternatives have been discussed and questions answered. Patient agrees to proceed with procedure. Chief complaint: Renal stone Narrative: Eric Freeman is a 65 year old male: (Ly Saenz; 03/10/2025 10:27 AM) The patient is a 65 year old male is being seen today for gross hematuria. This pleasant and talkative white male is referred by his primary care physician for evaluation of this problem. Hematuria has been present in this patient recently. This patient first discovered this problem in 2020 . This patient has not previously been known to have episodes of hematuria and since first noticed it has not been problematic. Reportedly there are no identifiable precipitating factors and nothing that clearly exacerbates it. Since the last office visit the patient reports a urinary tract infection. This patient has no prior smoking history. Imaging studies to date consists of a Renal CT-KUB done in 2020 ?- demonstrating renal stone(s) (left lower pole renal stone up to 1.4-1.6 cm.). Note for z.Hematuria - gross / new patient: Has had intermittent hematuria for the past year. 2-3 episodes. Eric has a stent in due to an OK in 2018 and is on plavix and asa. 03-04-23 Eric is here for follow up. ?He has not had his kub yet. ?No symptoms. ?He is now off of plavix and only taking the asa. 03-09-24 Eric is again here for follow-up. ?His KUB reveals stability to the 1.6 cm left lower pole stone. ?He overall is not having many symptoms. ?We have discussed treatment options including lithotripsy versus ureteroscopy at this point in time. ?He wants to continue to hold off. 06/09/25: Imaging and chart reviewed by HUA. 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 Rectal Hemorrhage Metatarsalgia, right foot Hypothyroid ASHD (arteriosclerotic heart disease) Acute thyroiditis Hyperlipidemia, unspecified Meniere's disease, unspecified Stricture and stenosis of esophagus Type 2 diabetes mellitus with hyperglycemia Surgical History Surgical History H/O cervical spine surgery S/P right inguinal hernia repair robotic assisted right inguinal hernia repair with mesh 08/14/22 History of coronary artery stent placement 1 stent 09/2017 Family History Family History Father Family history of cardiovascular disease Family history of lymphoma Parkinsons disease Mother Family history of cardiovascular disease Family history of elevated blood lipids Diabetes mellitus Hypertension Acute myocardial infarction Grandparent Acute myocardial infarction Other Depression Family history of arthritis Family history of malignant neoplasm of bone Social History Social History (Updated 05/23/25 @ 08:01 by Lisa Marcano AMERICAN INDIAN STUDIES PROFESSOR) Social History: Caffeine-coffee/tea Smoking status: Never smoker Second hand tobacco smoke exposure: No Alcohol intake: current Drinks per week: 1 Alcohol use details: couple per year Substance use: never Substance use type: does not use Lack of Transportation: No Lack of Food: Never True Current Housing: I Have Housing Concerned About Future Housing: No Difficulty Paying Gas/Electric Bills: No Difficulty Paying for Meds: No Currently Unemployed: No Education: Trade/Vocational Certificate Difficulty w/ Childcare or Family Care: No Living arrangements: with family Additional living arrangements comments: Spiritual care concerns: No Meds Home Medications and Allergies Home Medications ?Medication ?Instructions ?Recorded ?Confirmed ?Type aspirin 81 mg tablet,delayed 81 mg PO DAILY 08/18/19 06/05/25 History release (Adult Low Dose Aspirin) nitroglycerin 0.4 mg sublingual 0.4 mg sublingual PRN 02/08/21 06/05/25 History tablet blood-glucose sensor (FreeStyle #13 ea 03/12/23 06/05/25 Rx Viry 3 Sensor device) pen needle, diabetic 32 gauge x #100 ea 08/31/24 06/05/25 Rx 1/6 (NovoFine Plus) ticagrelor 90 mg tablet (Brilinta) 90 mg PO Q12HR 30 days #60 tabs 09/13/24 06/05/25 Rx atorvastatin 40 mg tablet 80 mg (2 x 40 mg) PO DAILY #60 tabs 09/14/24 06/05/25 Rx levothyroxine 75 mcg tablet 75 mcg PO DAILY #90 tabs 12/19/24 06/05/25 Rx pen needle, diabetic 32 gauge x #1,200 ea 01/09/25 06/05/25 History 5/32 (TRUEplus Pen Needle) insulin degludec 100 unit/mL (3 10 unit subcut QHS 03/16/25 06/05/25 History mL) subcutaneous pen (Tresiba FlexTouch U-100 insulin) metoprolol succinate 50 mg 50 mg PO QAM #30 tabs 03/17/25 06/05/25 Rx tablet,extended release 24 hr metformin 1,000 mg tablet,extended See Rx Instructions .Route 04/06/25 06/05/25 Rx release 24hr (osmotic) .COMPLEX #90 tabs omeprazole 20 mg capsule,delayed See Rx Instructions .Route 04/07/25 06/05/25 Rx release .COMPLEX #90 caps isosorbide mononitrate 30 mg 30 mg PO .am 05/12/25 06/05/25 History tablet,extended release 24 hr multivitamin with minerals-folic 1 tablet PO DAILY 06/05/25 06/05/25 History acid 80 mcg chewable tablet (Centrum MultiGummies Men) Allergies Allergy/AdvReac Type Severity Reaction Status Date / Time quinine Allergy Intermediate Skin Verified 06/05/25 13:12 Reaction Quinolones Allergy Intermediate RASH Verified 06/05/25 13:12 simvastatin Allergy Intermediate myalgias Verified 06/05/25 13:12 Exam Const: General: no acute distress Resp: Effort & Inspection: normal respiratory effort GI: Inspection: non-distended GI Palp: No abdominal tenderness and No Guarding due to palpation present (GI) Auscultation: normal bowel sounds Assessment and Plan Assessment and plan (1) Kidney stone: Code(s): N20.0 - Calculus of kidney Status: Acute (2) Gross hematuria: Code(s): R31.0 - Gross hematuria Status: Acute Assessment and Plan: cystoscopy, left ureteral stent placement, left ESWL
[2025-06-23] VITALS (10 sets, daily range): BP systolic 86–122; BP diastolic 51–69; PULSE 54–86; RESP 10–20; TEMP 36.4–37.2; O2SAT 94–100; BMI 21.9
--- NOTE | ~2025-06-23 | XR_ITS ---
Examination: XR abdomen/kub 1V Clinical History: ESWL Comparison: Abdominal x-ray 03/01/2025 Technique: Supine AP abdomen Findings: Bilateral renal stones persist, left side larger. Scattered colonic gas and stool. Mild scattered small bowel gas. Lung bases clear. No acute bony abnormality. IMPRESSION: 1. Bilateral renal stones persist. No significant change. Reviewed, dictated and finalized at location R. WARE ENGINEER ADVISOR
--- OUTSIDE RECORDS SUMMARY | 2025-06-23 00:47 | XMS_ITS | Clinical Summary ---
Author Organization [facility] [address] Address [address] [place] [address] Care Team Providers Care Grappler Name Role Phone Eric Riley MD Primary Care Provider [phone] Allergies Active Allergy Reactions Criticality Noted Date [...] Diagnosed Date Coronary artery disease invo lving [place] coronary artery of [place] heart without angina pectoris 10/29/2017 History of [...] Type Department Care Team Description 06/06/2025 Telephone [facility] [address] [place] [address] [place] [phone] Skylar Cohen NP 04/07/2025 9:00 AM CDT Office Visit [facility] Cardiology [address] [place] [address] [address] [place] [address] Skylar Cohen NP Coronary artery disease of [place] artery of [place] heart with stable angina pectoris (Primary Dx); Hospital discharge follow-up 03/30/2025 11:44 AM CDT - 03/30/2025 11:59 PM CDT Hospital Encounter [address] [place] [address] Pain in right elbow Discharge Disposition: Discharge to home or self care 03/27/2025 Orders Only [facility]iology [address] [place] [address] [address] [place] [phone] Amaury Weinstein MD from Last 3 Months Surgical History [...] on file Legal Sex Male 1:06 AM SENIOR TAX MANAGER Gender Identity Male 07/16/2021 10:51 AM SENIOR TAX MANAGER Sexual Orientation Not on file Last [...] Additional history exists Lipid Panel 09/12/2025 09/12/2024, 08/12/2023, 12/24/2022, Additional history exists DTaP/Tdap/Td Vaccine (4 - Td or Tdap) 07/30/2032 07/30/2022, 12/19/2016, 09/27/2009, Additional history exists Hepatitis B Screening Completed 10/07/1990 , 04/08/1990, 03/11/1990 Procedures Procedure Name Priority Date/Time Associated Diagnosis Comments XR ELBOW RIGHT 3 OR MORE VIEWS Schedule Routine, Read Routine (OP Routine) 03/30/2025 11:50 AM CDT Pain in right elbow LIPID PANEL Routine 09/12/2024 8:44 PM SENIOR TAX MANAGER from Last 3 Months or Most Recently [...] by Eric Hinton M.D. T: Report ID: [id number] Reading Location: [id number] Procedure Note Eric Hinton MD - 04/02/2025 [...] by Eric Hinton M.D. T: Report ID: [id number] Reading Location: [id number] Eric Riley MD IMG XR PROCEDURES Final R esult * (ABNORMAL) Lipid panel (09/12/2024 8:44 PM SENIOR TAX MANAGER) SCRIBED Cholesterol, Total 166 0 - 200 EXTERNAL LAB SCRIBED HDL 46 40 - 100 EXTERNAL LAB SCRIBED LDL 81 0 - 100 EXTERNAL LAB SCRIBED Triglycerides 213(A) 0 - 150 EXTERNAL LAB Blood 09/12/2024 8:44 PM SENIOR TAX MANAGER Historical Provider LAB BLOOD ORDERABLES [facility] Result EXTERNAL LAB from Last 3 Months or Most Recently Relevant to Health [place] [id number] MEDICARE [facility] [address] [place] [phone] Care Teams Grappler Relationship Specialty Start Date End Date Eric Riley MD PCP - General 08/29/10
--- OUTSIDE RECORDS SUMMARY | 2025-06-23 00:47 | XMS_ITS | Encounter Summary ---
Author Organization [employer] Address [address] [place] [address] Care Team Providers Care Code And Test Clerk Name Role Phone Unavailable Primary Care Provider Unavailabl e Encounter Details Date Type Department Care Team (Latest Contact Info) Description 04/20/2006 Outpatient Historical [facility] Nick Bethea MD [address] [place] [address] -x0 (Work) Follow-Up Examination, Following Other Surgery (Primary Dx) Social History Tobacco Use Types Packs/Day Years Used Date Smoking Tobacco: Never Assessed Sex and Gender Information Value Date Recorded Sex Assigned at Not on file Legal Sex Male 4:05 AM COMMUNITY EDUCATION SPECIALIST Gender Identity Not on file Sexual Orientation Not on file documented as of this encounter Plan of Treatment Not on file documented as of this encounter Visit Diagnoses Diagnosis Follow-up examination, following other surgery- Primary documented in this encounter
--- OUTSIDE RECORDS SUMMARY | 2025-06-23 00:47 | XMS_ITS | Encounter Summary ---
Author Organization [facility] Address [address] [place] [address] Care Team Providers Care Automotive Parts Counter Assistant Name Role Phone Eric Riley MD Primary Care Provider [phone] Encounter Details Date Type Department Care Team (Late st Contact Info) Description 10/15/2017 Orders Only [facility] Information Management [address] [place] [address] Scanning, Provider Social History Tobacco Use Types Packs/Day Years Used Date Smoking Tobacco: Never Assessed Alcohol Use Standard Drinks/Week Comments No 0 (1 standard drink = 0.6 oz pur e alcohol) Sex and Gender Information Value Date Recorded Sex Assigned at Not on file Legal Sex Male 1:06 AM SPOOL MAKER Gender Identity Male 07/16/2021 10:51 AM SPOOL MAKER Sexual Orientation Not on file documented as [...] on filedocumented in this encounter Care Teams Automotive Parts Counter Assistant Relationship Specialty Start Date End Date Eric Riley MD PCP - General 08/29/10 documented as of this encounter
--- OUTSIDE RECORDS SUMMARY | 2025-06-23 00:47 | XMS_ITS | Encounter Summary ---
Author Organization [employer] Address [address] [place] [address] Care Team Providers Care Service Order Expediter Name Role Phone Unavailable Primary Care Provider Unavailabl e Encounter Details Date Type Department Care Team (Late st Contact Info) Description 02/16/2006 Outpatient Historical [facility] (Adt Cardiology-[facility]) [address] [place] [address] Tyson Davidson MD NO ADDRESS ON FILE Social History Tobacco Use Types Packs/Day Years Used Date Smoking Tobacco: Never Assessed Sex and Gender Information Value Date Recorded Sex Assigned at Not on file Legal Sex Male 4:05 AM CONCRETE STONE FINISHING SUPERVISOR Gender Identity Not on file Sexual Orientation Not on file documented as of this encounter Plan of Treatment Not on file documented as of this encounter Visit Diagnoses Not on filedocumented in this encounter
--- OUTSIDE RECORDS SUMMARY | 2025-06-23 00:47 | XMS_ITS | Encounter Summary ---
Author Organization [facility] Address [address] [place] [address] Care Team Providers Care Instructional Material Director Name Role Phone Unavailable Primary Care Provider Unavailivan e Encounter Details Date Type Department Care Team (Latest Contact Info) Description 09/16/2007 Outpatient Historical [facility] Nick Blank MD [address] [place] [address] -x0 (Work) Displacement of Cervical Intervertebral Disc without Myelopathy Social History Tobacco Use Types Packs/Day Years Used Date Smoking Tobacco: Never Assessed Sex and Gender Information Value Date Recorded Sex Assigned at Not on file Legal Sex Male 4:05 AM FRACTIONATION PLANT SUPERVISOR Gender Identity Not on file Sexual Orientation Not on file documented as of this encounter Plan of Treatment Not on file documented as of this encounter Procedures Procedure Name Priority Date/Time Associated Diagnosis Comments XR CERVICAL SPINE 1 VW Routine 09/16/2007 3:20 PM FRACTIONATION PLANT SUPERVISOR documented in this encounter Results * XR CERVICAL SPINE 1 VW (09/16/2007 3:20 PM FRACTIONATION PLANT SUPERVISOR) Anatomical Region Laterality Modality Spine Other 09/16/2007 3:20 PM FRACTIONATION PLANT SUPERVISOR Narrative 09/17/2007 5:07 PM FRACTIONATION PLANT SUPERVISOR [address] [address] Admit Date: 09/16/2007 ERIC FREEMAN Sex: M Admit Prov: NICK BLANK Date: 1960 Primary Care Prov: ERIC DAI CMRN: [id number] Room: [facility] SSN: [id number] IMAGING SERVICES Ordering Prov: N/A Accession Number: [id number] Interpretation CROSSTABLE LATERAL RADIOGRAPH, CERVICAL SPINE, 09/16/2007 [...] Procedure Note Provider, Historical - 09/17/2007 [facility] [address] [place], [place] [address] Admit Date: 09/16/2007 QUANG ERIC Sex: M Admit Prov: NICK BLANK Date: 1960 Primary Care Prov: ERIC DAI CMRN: [id number] [id number] Ordering Prov: N/A Interpretation CROSSTABLE [...]
--- OUTSIDE RECORDS SUMMARY | 2025-06-23 00:47 | XMS_ITS | Encounter Summary ---
Author Organization [employer] Address 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 History: [...] 18:36 Procedure Note Provider, Historical - 11/07/2007 [address] [place], [place] [address] Admit Date: 11/07/2007 ERIC FREEMAN Sex: M Admit Prov: ER, AUTHORIZED P Date: 1960 Primary Care Prov: ERIC DAI CMRN: [id number] [facility] [id number] IM[facility]ING SERVICES Ordering Prov: N/A Interpretation Exam: [...] PM CDT Narrative 11/07/2007 5:31 PM CDT [address] [address] Admit Date: 11/07/2007 QUANG ERIC Merary Sex: M Admit Prov: ER, AUTHORIZED P Date: 1960 Primary Care Prov: MARCOSJUICEERIC NUNO CMRN: [id number] Room: [facility] SSN: [id number] IMAGING SERVICES Ordering Prov: N/A Accession Number: [id number] Interpretation Exam: Cervical spine, 5 views. History: [...] 17:31 Procedure Note Provider, Historical - 11/07/[address] [address] Admit Date: 11/07/2007 ERIC FREEMAN Sex: M Admit Prov: ER, AUTHORIZED P Date: 1960 Primary Care Prov: ERIC DAI CMRN: [id number] [facility]: [id number] IMAGING SERVICES Ordering Prov: N/A Interpretation Exam: [...] CDT) GLUCOSE 135(H) 65 - 99 mg/dL [facility] SODIUM 135 135 - 145 mmol/L [facility] CALCIUM 9.0 8.4 - 10.2 mg/dL [facility] CO2 26 22 - 30 mmol/L [facility] CREATININE 0.73 0.67 - 1.17 mg/dL [facility] POTASSIUM 4.6 3.5 - 4.9 mmol/L [facility] Comment: Moderate hemolysis present. Can cause significant falsely elevated result. Clinical judgement necessary. Redraw if indicated. BUN 16 6 - 20 mg/dL [facility] CHLORIDE 98 96 - 108 mmol/L [facility] GFR, >60 >=60 mL/min/1. 7 sq meter [facility] GFR >60 >=60 mL/min/1. 7 sq meter [facility] Comment: Estimated GFR rate interpretative information for both Americans and non- Americans is available on the [facility] Intranet at: [email or web address] Select: Lab Policies and Procedures Select: Reference Ranges - GFR Blood specimen (specimen) 11/07/2007 4:47 PM CDT 11/07/2007 5:04 PM CDT Guru Aragon Jr., MD CHEMISTRY ORDERABLES Edite d [facility] [address] [place] [address] * (ABNORMAL) C-REACTIVE PROTEIN (11/07/2007 4:47 PM CDT) [facility] CRP 6.3(H) 0.0 - 0.8 mg/dL [facility] Blood specimen (specimen) 11/07/2007 4:47 PM CDT 11/07/2007 5:04 PM CDT Guru Aragon Jr., MD CHEMISTRY ORDERABLES Final Result Performing Organization Address [facility]/ZIP Co de Phone Number [facility] [address] [place], [place] [address] * CBC WITH DIFFERENTIAL (11/07/2007 4:47 PM CDT) [facility] RBC 4.99 4.50 - 5.40 M/uL [facility] MCHC 33.0 31.5 - 35.5 % [facility] MCV 89.2 82.0 - 99.0 fL [facility] PLATELETS 256 140 - 350 K/uL [facility] HEMOGLOBIN 14.7 13.6 - 16.5 g/dL [facility] RDW 13.6 11.5 - 14.5 % [facility] WBC 6.5 4.0 - 9.8 K/uL [facility] MCH 29.5 27.2 - 32.6 pg [facility] MPV 10.5 9.3 - 12.4 fL [facility] HEMATOCRIT 44.5 40.0 - 48.0 % [facility] RDW-STDEV 44.2 37.1 - 48.7 fL [facility] NEUTROPHILS 63 45 - 70 % [facility] BASOPHILS 0 0 - 2 % [facility] BASOPHILS ABSOLUTE 0.01 0.00 - 0.20 K/uL [facility] MONOCYTES 9 3 - 13 % [facility] MONOCYTE ABSOLUTE 0.59 0.10 - 1.30 K/uL [facility] LYMPHOCYTES 26 16 - 45 % [facility] NEUTROPHIL ABSOLUTE 4.13 1.90 - 7.00 K/uL [facility] EOSINOPHILS 2 0 - 7 % [facility] EOSINOPHIL ABSOLUTE 0.12 0.00 - 0.70 K/uL [facility] LYMPHOCYTE ABSOLUTE 1.69 0.70 - 4.50 K/uL [facility] Blood specimen (specimen) 11/07/2007 4:47 PM CDT 11/07/2007 5:04 PM CDT Guru Aragon Jr., MD HEMATOLOGY ORDERABLES Edit ed INTERFACE SYSTEM Refer to clinic/hospital department [facility] [address] [place] [address] documented in this encounter Visit Diagnoses Not on filedocumented in this encounter
--- OUTSIDE RECORDS SUMMARY | 2025-06-23 00:47 | XMS_ITS | Clinical Summary ---
Author Organization [facility] Address [address] 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
--- OUTSIDE RECORDS SUMMARY | 2025-06-23 00:47 | XMS_ITS | Encounter Summary ---
Author Organization [employer] Address 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
--- NOTE | 2025-06-23 06:22 | WPDHPUPDATE1 ---
History and Physical Update Update Date/Time: 06/23/25 06:22 History and Physical has been reviewed, including an updated exam of the patient. There are NO changes in the patient's condition. Risks, benefits, and alternatives have been discussed and questions answered. Patient agrees to proceed with procedure.
[2025-06-23] MEDS: LACTATED RINGERS 1,000 ML 30 ML IV CONT ×2 (06:30→09:07)
--- NOTE | 2025-06-23 07:07 | WPDANESEPPF ---
Anes - Initial Pre Proc Eval Procedure: Operation Date: 06/23/25 07:30 Proposed Procedures p Left Extracorporeal Shock Wave Lithotripsy - Sonny Khanna MD s Cystoscopy, Left Stent Placement - Sonny Khanna MD Date/Time: 06/23/25 07:07 Surgeon: Sonny Khanna MD Pre Op Diagnosis: Renal stone Patient Data Age: 65 Gender: M Height: 1.78 m Weight: 70 kg Allergies Allergy/AdvReac Type Severity Reaction Status Date / Time quinine Allergy Intermediate Skin Verified 06/05/25 13:12 Reaction Quinolones Allergy Intermediate RASH Verified 06/05/25 13:12 simvastatin Allergy Intermediate myalgias Verified 06/05/25 13:12 Home Medications ?Medication ?Instructions ?Recorded ?Confirmed ?Type aspirin 81 mg tablet,delayed 81 mg PO DAILY 08/18/19 06/05/25 History release (Adult Low Dose Aspirin) nitroglycerin 0.4 mg sublingual 0.4 mg sublingual PRN 02/08/21 06/05/25 History tablet blood-glucose sensor (FreeStyle #13 ea 03/12/23 06/05/25 Rx Viry 3 Sensor device) pen needle, diabetic 32 gauge x #100 ea 08/31/24 06/05/25 Rx 1/6 (NovoFine Plus) ticagrelor 90 mg tablet (Brilinta) 90 mg PO Q12HR 30 days #60 tabs 09/13/24 06/05/25 Rx atorvastatin 40 mg tablet 80 mg (2 x 40 mg) PO DAILY #60 tabs 09/14/24 06/05/25 Rx pen needle, diabetic 32 gauge x #1,200 ea 01/09/25 06/05/25 History 5/32 (TRUEplus Pen Needle) insulin degludec 100 unit/mL (3 10 unit subcut QHS 03/16/25 06/05/25 History mL) subcutaneous pen (Tresiba FlexTouch U-100 insulin) metoprolol succinate 50 mg 50 mg PO QAM #30 tabs 03/17/25 06/05/25 Rx tablet,extended release 24 hr metformin 1,000 mg tablet,extended See Rx Instructions .Route 04/06/25 06/05/25 Rx release 24hr (osmotic) .COMPLEX #90 tabs omeprazole 20 mg capsule,delayed See Rx Instructions .Route 04/07/25 06/05/25 Rx release .COMPLEX #90 caps isosorbide mononitrate 30 mg 30 mg PO .am 05/12/25 06/05/25 History tablet,extended release 24 hr multivitamin with minerals-folic 1 tablet PO DAILY 06/05/25 06/05/25 History acid 80 mcg chewable tablet (Centrum MultiGummies Men) amoxicillin 500 mg capsule 500 mg PO Q8H #21 caps 06/19/25 Rx levothyroxine 75 mcg tablet 75 mcg PO DAILY #90 tabs 06/20/25 Rx Laboratory Tests 06/23/25 06:54 POC Capillary Glucose 138 H mg/dl (65-105) Patient hx anesthesia problems: none Family hx anesthesia problems: none Results Review: All pre-operative results and documents have been reviewed as part of the pre-operative evaluation. 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 Rectal Hemorrhage Metatarsalgia, right foot Hypothyroid ASHD (arteriosclerotic heart disease) Acute thyroiditis Hyperlipidemia, unspecified Meniere's disease, unspecified Stricture and stenosis of esophagus Type 2 diabetes mellitus with hyperglycemia Surgical History Surgical History H/O cervical spine surgery S/P right inguinal hernia repair robotic assisted right inguinal hernia repair with mesh 08/14/22 History of coronary artery stent placement 1 stent 09/2017 Family History Family History Father Family history of cardiovascular disease Family history of lymphoma Parkinsons disease Mother Family history of cardiovascular disease Family history of elevated blood lipids Diabetes mellitus Hypertension Acute myocardial infarction Grandparent Acute myocardial infarction Other Depression Family history of arthritis Family history of malignant neoplasm of bone Social History Social History Social History: Caffeine-coffee/tea Smoking status: Never smoker Second hand tobacco smoke exposure: No Alcohol intake: current Drinks per week: 1 Alcohol use details: couple per year Substance use: never Substance use type: does not use Lack of Transportation: No Lack of Food: Never True Current Housing: I Have Housing Concerned About Future Housing: No Difficulty Paying Gas/Electric Bills: No Difficulty Paying for Meds: No Currently Unemployed: No Education: Trade/Vocational Certificate Difficulty w/ Childcare or Family Care: No Living arrangements: with family Additional living arrangements comments: Spiritual care concerns: No Anes - Eval Final PreProcedure Day of Procedure 06/23/25 07:07 Patient weight: normal Heart: regular rate and rhythm Lungs: clear to auscultation Airway: Mallampati scale class II Neurological: alert and oriented Last oral intake: >/= 8 hours ASA classification: III Emergent: no Anesthetic plan: proceed Anesthesia type and monitoring: general LMA and standard monitoring Results Review: All pre-operative results and documents have been reviewed as part of the pre-operative evaluation. Informed Consent: The patient's anesthetic plan and its attendant risks and benefits were discussed with the patient/family/POA. Questions were solicited and answers provided to the satisfaction of the patient/family/POA.
[2025-06-23] MEDS: ceFAZolin 2 GM in SODIUM CHLORIDE 0.9% IV 50 ML 100 ML IVPB (07:25)
[2025-06-23] MEDS: LIDOCAINE 2% GEL UROJET 10 ML PKG MUCOUS MEM (07:27)
--- NOTE | 2025-06-23 07:47 | W.PM.PROC2 ---
Procedure Note - Detailed Date of Procedure 06/23/25 Pre-op Diagnosis Left kidney stone, gross hematuria Post-op Diagnosis Same Procedure Performed Flexible cystoscopy, left ESWL Surgeon Sonny Khanna MD Anesthesia General Description of Procedure The patient was brought to the operative suite where he was placed in the supine position on the Dornier lithotripter table. Flexible cystoscopy was undertaken with a 16F flexible cystoscopy. There were no urethral strictures. The prostatic urethra estimated length was 1.5cm. There was mild obstruction of the prostatic urethra with no median lobe enlargement. The bladder mucosa was normal and there was a single, orthotopic ureteral orifice bilaterally. The patient was then repositioned in the supine position with the focal point of the lithotriptor on a 8-9mm left mid-ureteral calculus. A total of 2500 shocks were delivered at a power setting of 4. There appeared to be good fragmentation of the stone. The patient tolerated the procedure well and was taken to the recovery room in good condition. Drains No Packing No
--- NOTE | 2025-06-23 10:12 | SUR.PHASEII ---
Dr. Baeza aware of patient's hypotension. Since patient is asymptomatic, he said it was fine to send patient home.
== END 2025-06-23 10:30 | disposition home or self-care (01) ==
PROVIDERS: PCP Family Medicine; Visit Provider Urology
PROC: (CPT 50590; principal; 2025-06-23 07:30)
PROC: (CPT 52352; 2025-06-23 07:30)
DX: N20.1 Calculus of ureter (principal); R31.0 Gross hematuria; E11.9 Type 2 diabetes mellitus without complications
CPT/HCPCS: 50590; 52000; 74018; 82948; J0690; J1100; J2003; J2250; J2270; J2405; J2704; J7120

== ENCOUNTER 2025-07-04 12:06 | Outpatient (CLI) | payer MEDICARE, SELFPAY ==
--- NOTE | ~2025-07-04 | XR_ITS ---
EXAM/PROCEDURE: XR abdomen/kub 1V HISTORY: Calc kidney stone, LEFT SIDED COMPARISON: June 23, 2025 TECHNIQUE: KUB FINDINGS: Calcification overlying the lower pole the left kidney is decreased in size measuring about 10 x 8 mm and more amorphous in appearance compared to the previous exam when it measured about 1.6 x 1.0 cm. Small calcification overlying the lower pole the right kidney, over the posterior right 12th rib may represent small right-sided kidney stone. Nonspecific bowel gas pattern. IMPRESSION: Decreased prominence or size of left kidney stone as above. Reviewed, dictated and finalized at location A. 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
--- OUTSIDE RECORDS SUMMARY | 2025-07-04 14:12 | XMS_ITS | Encounter Summary ---
Author Organization [employer] Address 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 History: [...] 18:36 Procedure Note Provider, Historical - 11/07/2007 [address] [place], [place] [address] Admit Date: 11/07/2007 ERIC FREEMAN Sex: M Admit Prov: ER, AUTHORIZED P Date: 1960 Primary Care Prov: ERIC DAI CMRN: [id number] [id number] [facility] Ordering Prov: N/A Interpretation Exam: [...] PM CDT Narrative 11/07/2007 5:31 PM CDT [address] [address] Admit Date: 11/07/2007 QUANG ERIC Merary Sex: M Admit Prov: ER, AUTHORIZED P Date: 1960 Primary Care Prov: MARCOSJUICEERIC NUNO CMRN: [id number] Room: [facility] SSN: [id number] IMAGING SERVICES Ordering Prov: N/A Accession Number: [id number] Interpretation Exam: Cervical spine, 5 views. History: [...] 17:31 Procedure Note Provider, Historical - 11/07/[address] [address] Admit Date: 11/07/2007 ERIC FREEMAN Sex: M Admit Prov: ER, AUTHORIZED P Date: 1960 Primary Care Prov: ERIC DAI CMRN: [id number] [facility]: [id number] IM[facility]ING SERVICES Ordering Prov: N/A Interpretation Exam: [...] CDT) GLUCOSE 135(H) 65 - 99 mg/dL [facility] SODIUM 135 135 - 145 mmol/L [facility] CALCIUM 9.0 8.4 - 10.2 mg/dL [facility] CO2 26 22 - 30 mmol/L [facility] CREATININE 0.73 0.67 - 1.17 mg/dL [facility] POTASSIUM 4.6 3.5 - 4.9 mmol/L [facility] Comment: Moderate hemolysis present. Can cause significant falsely elevated result. Clinical judgement necessary. Redraw if indicated. BUN 16 6 - 20 mg/dL [facility] CHLORIDE 98 96 - 108 mmol/L [facility] GFR, >60 >=60 mL/min/1. 7 sq meter [facility] GFR >60 >=60 mL/min/1. 7 sq meter [facility] Comment: Estimated GFR rate interpretative information for both Americans and non- Americans is available on the [facility] Intranet at: [email or web address] Select: Lab Policies and Procedures Select: Reference Ranges - GFR Blood specimen (specimen) 11/07/2007 4:47 PM CDT 11/07/2007 5:04 PM CDT Guru Aragon Jr., MD CHEMISTRY ORDERABLES Edite d [facility] [address] [place] [address] * (ABNORMAL) C-REACTIVE PROTEIN (11/07/2007 4:47 PM CDT) [facility] CRP 6.3(H) 0.0 - 0.8 mg/dL [facility] Blood specimen (specimen) 11/07/2007 4:47 PM CDT 11/07/2007 5:04 PM CDT Guru Aragon Jr., MD CHEMISTRY ORDERABLES Final Result Performing Organization Address [facility]/ZIP Co de Phone Number [facility] [address] [place], [place] [address] * CBC WITH DIFFERENTIAL (11/07/2007 4:47 PM CDT) [facility] RBC 4.99 4.50 - 5.40 M/uL [facility] MCHC 33.0 31.5 - 35.5 % [facility] MCV 89.2 82.0 - 99.0 fL [facility] PLATELETS 256 140 - 350 K/uL [facility] HEMOGLOBIN 14.7 13.6 - 16.5 g/dL [facility] RDW 13.6 11.5 - 14.5 % [facility] WBC 6.5 4.0 - 9.8 K/uL [facility] MCH 29.5 27.2 - 32.6 pg [facility] MPV 10.5 9.3 - 12.4 fL [facility] HEMATOCRIT 44.5 40.0 - 48.0 % [facility] RDW-STDEV 44.2 37.1 - 48.7 fL [facility] NEUTROPHILS 63 45 - 70 % [facility] BASOPHILS 0 0 - 2 % [facility] BASOPHILS ABSOLUTE 0.01 0.00 - 0.20 K/uL [facility] MONOCYTES 9 3 - 13 % [facility] MONOCYTE ABSOLUTE 0.59 0.10 - 1.30 K/uL [facility] LYMPHOCYTES 26 16 - 45 % [facility] NEUTROPHIL ABSOLUTE 4.13 1.90 - 7.00 K/uL [facility] EOSINOPHILS 2 0 - 7 % [facility] EOSINOPHIL ABSOLUTE 0.12 0.00 - 0.70 K/uL [facility] LYMPHOCYTE ABSOLUTE 1.69 0.70 - 4.50 K/uL [facility] Blood specimen (specimen) 11/07/2007 4:47 PM CDT 11/07/2007 5:04 PM CDT Guru Aragon Jr., MD HEMATOLOGY ORDERABLES Edit ed INTERFACE SYSTEM Refer to clinic/hospital department [facility] [address] [place] [address] documented in this encounter Visit Diagnoses Not on filedocumented in this encounter
--- OUTSIDE RECORDS SUMMARY | 2025-07-04 14:12 | XMS_ITS | Encounter Summary ---
Author Organization [employer] Address 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
--- OUTSIDE RECORDS SUMMARY | 2025-07-04 14:12 | XMS_ITS | Clinical Summary ---
Author Organization [facility] [address] Address [address] [place] [address] Care Team Providers Care Medical Customer Service Representative Name Role Phone Eric Riley MD Primary Care Provider [phone] Allergies Active Allergy Reactions Criticality Noted Date [...] Diagnosed Date Coronary artery disease invo lving [place] coronary artery of [place] heart without angina pectoris 10/29/2017 History [...] Type Department Care Team Description 06/06/2025 Telephone [facility] Medical [facility] Cardiology [address] [place] [id number] Skylar Cohen NP 04/07/2025 9:00 AM CDT Office Visit [facility] Cardiology [address] [place] [address] Skylar Cohen NP Coronary artery disease of [place] artery of [place] heart with stable angina pectoris (Primary Dx); Hospital discharge follow-up from Last 3 Months Surgical History Surgery [...] on file Legal Sex Male 1:06 AM VIDEO GAME ENGINEER Gender Identity Male 07/16/2021 10:51 AM VIDEO GAME ENGINEER Sexual Orientation Not on file Last [...] Visit 65+ 2023 Influenza Vaccine (#1) 2025 0, 05/20/2018, 05/07/2017, Additional history exists Lipid Panel 09/12/2025 09/12/2024, 08/0 12/2023, 12/24/2022, Additional history exists DTaP/Tdap/Td Vaccine (4 - Td or Tdap) 07/30/2032 07/30/2022, 12/19/2016, 09/27/2009, Additional history exists Hepatitis B Screening Completed 10/07/1990 , 04/08/1990, 03/11/1990 Procedures Procedure Name Priority Date/Time Associated Diagnosis Comments LIPID PANEL Routine 09/12/2024 8:44 PM VIDEO GAME ENGINEER from Last 3 Months or Most Recently Relevant to Health Maintenance Results * (ABNORMAL) Lipid panel (09/12/2024 8:44 PM VIDEO GAME ENGINEER) SCRIBED Cholesterol, Total 166 0 - 200 EXTERNAL LAB SCRIBED HDL 46 40 - 100 EXTERNAL LAB SCRIBED LDL 81 0 - 100 EXTERNAL LAB SCRIBED Triglycerides 213(A) 0 - 150 EXTERNAL LAB Blood 09/12/2024 8:44 PM VIDEO GAME ENGINEER us Historical Provider LAB BLOOD ORDERABLES Sommer l Result EXTERNAL LAB from Last 3 Months or Most Recently Relevant to Health Maintenance Insurance MEDICARE [facility] MEDICARE [facility] Care Teams Medical Customer Service Representative Relationship Specialty Start Date End Date Eric Riley MD PCP - General 08/29/10
--- OUTSIDE RECORDS SUMMARY | 2025-07-04 14:12 | XMS_ITS | Encounter Summary ---
Author Organization [facility] Address [address] [place] [address] Care Team Providers Care Cashier Greeter Name Role Phone Unavailable Primary Care Provider Unavailivan e Encounter Details Date Type Department Care Team (Latest Contact Info) Description 09/16/2007 Outpatient Historical [facility] Nick Blank MD [address] [place] [address] -x0 (Work) Displacement of Cervical Intervertebral Disc without Myelopathy Social History Tobacco Use Types Packs/Day Years Used Date Smoking Tobacco: Never Assessed Sex and Gender Information Value Date Recorded Sex Assigned at Not on file Legal Sex Male 4:05 AM MEDICAL INFORMATION OFFICER Gender Identity Not on file Sexual Orientation Not on file documented as of this encounter Plan of Treatment Not on file documented as of this encounter Procedures Procedure Name Priority Date/Time Associated Diagnosis Comments XR CERVICAL SPINE 1 VW Routine 09/16/2007 3:20 PM MEDICAL INFORMATION OFFICER documented in this encounter Results * XR CERVICAL SPINE 1 VW (09/16/2007 3:20 PM MEDICAL INFORMATION OFFICER) Anatomical Region Laterality Modality Spine Other 09/16/2007 3:20 PM MEDICAL INFORMATION OFFICER Narrative 09/17/2007 5:07 PM MEDICAL INFORMATION OFFICER [address] [address] Admit Date: 09/16/2007 ERIC FREEMAN Sex: M Admit Prov: NICK BLANK Date: 1960 Primary Care Prov: ERIC DAI CMRN: [id number] Room: [facility] SSN: [id number] IMAGING SERVICES Ordering Prov: N/A Accession Number: [id number] Interpretation CROSSTABLE LATERAL RADIOGRAPH, CERVICAL SPINE, 09/16/2007 [...] SJ Procedure Note Provider, Historical - 09/17/2007 [facility] [address] [place], [place] [address] Admit Date: 09/16/2007 QUANG ERIC Sex: M Admit Prov: NICK BLANK Date: 1960 Primary Care Prov: ERIC DAI CMRN: [id number] [id number] [facility] Ordering Prov: N/A Interpretation CROSSTABLE [...]
--- OUTSIDE RECORDS SUMMARY | 2025-07-04 14:12 | XMS_ITS | Encounter Summary ---
Author Organization [facility] Healthcare Address [address] [place] [address] Care Team Providers Care Chief Architect Name Role Phone Eric Riley MD Primary Care Provider [phone] [phone] Encounter Details Date Type Department Care Team (Late st Contact Info) Description 10/15/2017 Orders Only [facility] Information Management [address] [place] [address] Scanning, Provider Social History Tobacco Use Types Packs/Day Years Used Date Smoking Tobacco: Never Assessed Alcohol Use Standard Drinks/Week Comments No 0 (1 standard drink = 0.6 oz pur e alcohol) Sex and Gender Information Value Date Recorded Sex Assigned at Not on file Legal Sex Male 1:06 AM PROMOTIONAL MARKETING AGENT Gender Identity Male 07/16/2021 10:51 AM PROMOTIONAL MARKETING AGENT Sexual Orientation Not on file documented as [...] on filedocumented in this encounter Care Teams Chief Architect Relationship Specialty Start Date End Date Eric Riley MD PCP - General 08/29/10 documented as of this encounter
--- OUTSIDE RECORDS SUMMARY | 2025-07-04 14:12 | XMS_ITS | Encounter Summary ---
Author Organization [employer] Address 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
--- OUTSIDE RECORDS SUMMARY | 2025-07-04 14:12 | XMS_ITS | Clinical Summary ---
Author Organization [facility] Address [address] 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
--- OUTSIDE RECORDS SUMMARY | 2025-07-04 14:12 | XMS_ITS | Encounter Summary ---
Author Organization [employer] Address [address] [place] [address] Care Team Providers Care Folder Seamer Name Role Phone Unavailable Primary Care Provider Unavailabl e Encounter Details Date Type Department Care Team (Late st Contact Info) Description 02/16/2006 Outpatient Historical [facility] [address] 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
== END 2025-07-04 12:07 | disposition home or self-care (01) ==
PROVIDERS: PCP Family Medicine; Visit Provider Nurse Practitioner Family
DX: N20.0 Calculus of kidney (principal)
CPT/HCPCS: 74018